=== PATIENT | female | born 1930 | race Asian ===

== ENCOUNTER 2018-10-01 21:48 | Inpatient (IN) | payer MEDICARE ==
[~2018-10-01] VITALS: Ht 162.6 cm; Wt 38.7 kg
[2018-10-01 22:00] VITALS: BP 114/80
[2018-10-01] MEDS ORDERED: Vancomycin 1 GM in NS 275 ML IV ONE (22:00)
[2018-10-01] MEDS ORDERED: Cefepime HCl 1 GM in NS 55 ML IV SCH (22:00)
[2018-10-01] MEDS ORDERED: NS 1000ml 1,600 ML IVLG ONE (22:00)
[2018-10-01 23:00] VITALS: BP 116/70
[2018-10-01 23:07] LABS: APPEARANCE,URINE CLOUDY; BILIRUBIN, URINE NEGATIVE (NEGATIVE); COLOR,URINE PALE YELLOW; GLUCOSE, URINE (UA) NEGATIVE (NEGATIVE); KETONES,URINE NEGATIVE (NEGATIVE); LEUKOCYTE ESTERASE ,URINE 3+ (NEGATIVE); NITRITE,URINE NEGATIVE (NEGATIVE); PH,URINE 5 (4.5-8.0); PROTEIN,URINE 3+ (NEGATIVE); UROBILINOGEN,URINE NORMAL MG/DL (0.0-1.0)
[2018-10-01 23:54] LABS: HEMATOCRIT 37.3 % (37.0-47.0); HEMOGLOBIN 11.7 G/DL (12.0-16.0); MEAN CORPUSCULAR VOLUME 86 FL (80-99); PLATELET COUNT 282 K/UL (150-450); RED BLOOD COUNT 4.35 M/UL (4.20-5.40); RED CELL DISTRIBUTION WIDTH 16.5 % (11.6-14.8); WHITE BLOOD COUNT 18.6 K/UL (4.8-10.8)
[2018-10-02] VITALS (19 sets, daily range): BP systolic 77–128; BP diastolic 38–97
[2018-10-02 00:05] LABS: INR 1.1 (0.9-1.1)
[2018-10-02 00:22] LABS: ALANINE AMINOTRANSFERASE 18 U/L (12-78); ALBUMIN/GLOBULIN RATIO 0.5 (1.0-2.7); ALKALINE PHOSPHATASE 93 U/L (46-116); ANION GAP 18 mmol/L (5-15); ASPARTATE AMINO TRANSFERASE 54 U/L (15-37); BILIRUBIN,TOTAL 0.3 MG/DL (0.2-1.0); BLOOD UREA NITROGEN 128 mg/dL (7-18); CALCIUM 10.8 MG/DL (8.5-10.1); CARBON DIOXIDE 20 MMOL/L (21-32); CHLORIDE 131 MMOL/L (98-107); CREATINE KINASE 252 U/L (26-308); CREATININE 6.4 MG/DL (0.55-1.30)
[2018-10-02 00:23] LABS: POTASSIUM 6.3 MMOL/L (3.5-5.1); SODIUM 168 MMOL/L (136-145)
[2018-10-02] MEDS ORDERED: Calcium Gluconate 1gm/10ml vial IVP ONE (00:45)
[2018-10-02] MEDS ORDERED: Sodium Polystyrene Sulfonate 15gm Powder RECTAL ONE (00:45)
[2018-10-02] MEDS ORDERED: Sodium Bicarbonate 50ml Carp IV ONE (00:45)
[2018-10-02] MEDS ORDERED: Sodium Polystyrene Sulfonate Enema RECTAL ONE (00:59)
[2018-10-02] MEDS ORDERED: NKM (02:23)
--- NOTE | 2018-10-02 03:01 | Emergency Room Report ---
History of Present Illness General Chief Complaint: Altered Level of Consciousness Source: Family Member, EMS Present Illness HPI Patient presents via EMS for ALOC and poor oral intake. According to daughter, has been on antibiotics. Treated at [facility]. No G tube. Now more lethargy. No cough or fevers. No NVD. Problems with dysphagia. Had some abdominal surgery Wednesday (5 days ago) and has not been at baseline since. EMS EKG with a fib rapid and no STEMI. Chronic a fib. Pacer Has sacral decubitus. Patient unable to communicate due to dementia. Allergies: Coded Allergies: No Known Allergies (Unverified , 01/02/13) Patient History Limited by: medical condition Past Medical History: see triage record Past Surgical History: hysterectomy, pacemaker Social History Narrative daughter caring for patient Now: No Reviewed Nursing Documentation: PMH: Agreed; PSxH: Agreed Nursing Documentation-PMH Hx Cardiac Problems: Yes - a-fib Hx Hypertension: Yes Hx Pacemaker: Yes Hx Cancer: Yes - hysterectomy tumors removed 2005 Review of Systems All Other Systems: limited Physical Exam Vital Signs Date Time Temp Pulse Resp B/P (MAP) Pulse Ox O2 Delivery O2 Flow Rate FiO2 10/01/18 21:16 130 16 102/77 97 Room Air 10/01/18 22:00 98.0 Sp02 EP Interpretation: reviewed, normal General Appearance: mild distress, Chronically Ill Eyes: left eye other - glass eye ENT: dry mucus membranes Neck: supple/symm/no masses Respiratory: chest non-tender, lungs clear, normal breath sounds Cardiovascular #1: tachycardia, irregularly irregular Cardiovascular #2: 2+ radial (L), 2+ femoral (R) Gastrointestinal: normal bowel sounds, non tender, soft Genitourinary: no CVA tenderness, other - urine via [place] = turbid Musculoskeletal: other - atrophy Neurologic: responsive, motor weakness - diffuse - good UE strength Psychiatric: depressed affect Skin: other - stage 2 sacral decubs Procedures Critical Care Time Critical Care Time Total Critical Care Time: 90 min bedside evaluation and treatment excludes procedures (EKG, CVP). Reason for critical care: hypotension, a fib RVR, ALOC/sepsis, ARF, hyperkalemia , NSTEMI, hypernatremia Possible complications: hypotension, hypertension, SD, shock, arrhythmias, metabolic acidosis, end organ damage, respiratory failure. Interventions: Fluid bolus, antibiotics, CVP, discussion level of care, discussion [facility] Course: Patient with ALOC, hypotension and tachycardia. Initiation of sepsis resuscitation. Unable to get bloods, need for CVP. Elevated troponin. Unable to give PO - NG placed, aspirin given. Discussion level of care with daughter. Discussion with Dax DHILLON - deemed non-transferrable. Improved with sepsis re -evaluation. K+ elevated with ARF. Treated. Improved with treatment, still critical. Consultations: nursing staff, EMS, family, Dax DHILLON, admitting MD Performed by: Dr. Hernandez Tolerated well condition = critical Central Line Central Line : Consent: Verbal Central Line Lumen: triple Maximal Sterile Barrier Tech: yes cap, yes mask, yes sterile gown, yes sterile gloves, yes large sterile sheet, yes hand hygiene, yes chlorhexidine prep Central Line Postion: femoral (R) - ultrasound Anesthesia: Lidocaine cc's of anesthesia: 1 Complications: none Central Line Post Position: sutured, good blood return Attempts: One Patient Tolerated: Well Complications: None Progress bloods drawn for lab (40 ml), total EBL = 42 ml. Medical Decision Making Diagnostic Impression: Primary Impression: Sepsis Qualified Codes: A41.9 - Sepsis, unspecified organism Additional Impressions: UTI (urinary tract infection) Qualified Codes: N39.0 - Urinary tract infection, site not specified Renal failure Qualified Codes: N17.9 - Acute kidney failure, unspecified Hyperkalemia NSTEMI (non-ST elevated myocardial infarction) ER Course Patient with tachycardia, hypotension and atrial fib rapid response. DDX: sepsis, UTI, pneumonia, AMI amongst others. Sepsis evaluation with antibiotics ordered. EKG without STEMI. Labs unable. CXR no CHF, pacer, no infiltrates. BNP minimally elevated. Daughter initially refused antibiotics. Daughter states full code. Unable to draw blood peripherally and low BP - CVP discussed with daughter and begun under ultrasound. Treated for hyperkalemia. Clinically not CHF. However, holding fluids after 1st liter due to ARF. HR better and mentation improved. NSTEMI ordered aspirin. Improving - repeat lactate improving. Improved mentation. Presented to Dr. Boles at [facility]. We feel she is unstable for transfer at this time. Admit Dr. Jimenez SIERRA. Laboratory Tests Test 10/01/18 22:40 10/01/18 23:30 10/02/18 01:07 Urine Color Pale yellow Urine Appearance Cloudy Urine pH 5 (4.5-8.0) Urine Specific [place] 1.015 (1.005-1.035) Urine Protein 3+ (NEGATIVE) H Urine Glucose (UA) Negative (NEGATIVE) Urine Ketones Negative (NEGATIVE) Urine Blood 5+ (NEGATIVE) H Urine Nitrite Negative (NEGATIVE) Urine Bilirubin Negative (NEGATIVE) Urine Urobilinogen Normal MG/DL (0.0-1.0) Urine Leukocyte Esterase 3+ (NEGATIVE) H Urine RBC 5-10 /HPF (0 - 2) H Urine WBC 15-20 /HPF (0 - 2) H Urine Squamous Epithelial Cells Few /LPF (NONE/OCC) Urine Amorphous Sediment Few /LPF (NONE) H Urine Bacteria Many /HPF (NONE) H White Blood Count 18.6 K/UL (4.8-10.8) H Red Blood Count 4.35 M/UL (4.20-5.40) Hemoglobin 11.7 G/DL (12.0-16.0) L Hematocrit 37.3 % (37.0-47.0) Mean Corpuscular Volume 86 FL (80-99) Mean Corpuscular Hemoglobin 27.0 PG (27.0-31.0) Mean Corpuscular Hemoglobin Concent 31.5 G/DL (32.0-36.0) L Red Cell Distribution Width 16.5 % (11.6-14.8) H Platelet Count 282 K/UL (150-450) Mean Platelet Volume 6.3 FL (6.5-10.1) L Neutrophils (%) (Auto) % (45.0-75.0) Lymphocytes (%) (Auto) % (20.0-45.0) Monocytes (%) (Auto) % (1.0-10.0) Eosinophils (%) (Auto) % (0.0-3.0) Basophils (%) (Auto) % (0.0-2.0) Differential Total Cells Counted 100 Neutrophils % (Manual) 87 % (45-75) H Lymphocytes % (Manual) 6 % (20-45) L Monocytes % (Manual) 7 % (1-10) Eosinophils % (Manual) 0 % (0-3) Basophils % (Manual) 0 % (0-2) Band Neutrophils 0 % (0-8) Platelet Estimate Adequate Platelet Morphology Normal Anisocytosis 1+ Target Cells 1+ Acanthocytes (Spur Cells) 1+ Prothrombin Time 11.4 SEC (9.30-11.50) Prothrombin Time INR 1.1 (0.9-1.1) PTT 24 SEC (23-33) Sodium Level 168 MMOL/L (136-145) *H Potassium Level 6.3 MMOL/L (3.5-5.1) *H Chloride Level 131 MMOL/L (98-107) H Carbon Dioxide Level 20 MMOL/L (21-32) L Anion Gap 18 mmol/L (5-15) H Blood Urea Nitrogen 128 mg/dL (7-18) H Creatinine 6.4 MG/DL (0.55-1.30) H Estimate Glomerular Filtration Rate mL/min (>60) Glucose Level 145 MG/DL (74-106) H Lactic Acid Level 2.80 mmol/L (0.4-2.0) H 2.20 mmol/L (0.66-2.22) Calcium Level 10.8 MG/DL (8.5-10.1) H Magnesium Level 3.2 MG/DL (1.8-2.4) H Total Bilirubin 0.3 MG/DL (0.2-1.0) Aspartate Amino Transferase (AST) 54 U/L (15-37) H Alanine Aminotransferase (ALT) 18 U/L (12-78) Alkaline Phosphatase 93 U/L (46-116) Total Creatine Kinase 252 U/L (26-308) Troponin I 0.247 ng/mL (0.000-0.056) Pro-B-Type Natriuretic Peptide 2271 pg/mL (0-125) H Total Protein 8.6 G/DL (6.4-8.2) H Albumin 3.0 G/DL (3.4-5.0) L Globulin 5.6 g/dL Albumin/Globulin Ratio 0.5 (1.0-2.7) L EKG Diagnostic Results Rate: tachycardiac Rhythm: other - a fib ST Segments: other - NSSTTW changes Rhythm Strip Diag. Results EP Interpretation: yes Rhythm: no PVC's, no ectopy, other - a fib RVR Chest X-Ray Diagnostic Results Chest X-Ray Diagnostic Results : Chest X-Ray Ordered: Yes # of Views/Limited/Complete: 1 View Indication: Other EP Interpretation: Yes Interpretation: no consolidation, no effusion, no pneumothorax, other - pacer Impression: Other Electronically Signed by: Electronically signed by Lobo Hernandez MD Other X-Ray Diagnostic Results Other X-Ray Diagnostic Results : X-Ray ordered: abd # of Views/Limited Vs Complete: 1 View Indication: Other EP Interpretation: Yes Interpretation: nonspecific bowel gas, no sbo, other - NG in GI tract Impression: Other Electronically Signed by: Lobo Hernandez MD Last Vital Signs Date Time Temp Pulse Resp B/P (MAP) Pulse Ox O2 Delivery O2 Flow Rate FiO2 10/02/18 06:00 15.0 10/02/18 05:30 98.0 120 95/50 (65) 10/02/18 05:30 Venturi Mask 10/02/18 05:24 20 95 Status: improved Disposition: ADMITTED INPATIENT Condition: Critical Referrals: [facility] (PCP) Lobo Hernandez MD Oct 02, 2018 03:01
[2018-10-02] MEDS ORDERED: Albuterol/Ipratropium 3ml neb HHN PRN (08:15)
[2018-10-02] MEDS ORDERED: Nitroglycerin Subl 0.4mg tab SL PRN (08:15)
[2018-10-02] MEDS ORDERED: Metoprolol 5mg/5ml Inj IVP SCH (08:30)
--- NOTE | 2018-10-02 08:31 | Consultation ---
History of Present Illness General Date patient seen: Oct 02, 2018 Time patient seen: 08:15 Chief Complaint: sepsis Referring physician: dr Gaona Reason for Consultation: sepsis. resp failure Present Illness HPI 87 y/o9kld female with unknown past medical history and pacemaker, noted on CXR , presented to ED for evaluation due to altered mental status. She was found to be septic, in A fib with RVR, evidence of UTI, acute renal failure, acute respiratory failure, started on 100% NRM, troponin elevated, electrolyte abnormalities with high Na and K, malnourished . Septic workup initiated in ED, patient received 1 L of fluids, pancultured and started on empiric abx, Subsequently patient was admitted to [facility] for further management Allergies: Coded Allergies: No Known Allergies (Unverified , 01/02/13) Medication History Scheduled No Known Medications* (NKM - No Known Medications*), 0 ., (Reported) Patient History Limited by: medical condition - sepsis, AMS History Provided By: Medical Record Healthcare decision maker Resuscitation status Full code Advanced Directive on File Review of Systems ROS Narrative unable to obtain 2 to AMS Physical Exam General Appearance: lethargic, cachetic, other - female ill looking Lines, tubes and drains: peripheral HEENT: normocephalic, atraumatic, other - 100% NRM Neck: supple Respiratory/Chest: chest wall non-tender, respiratory distress - with use of intercostal muscles , decreased breath sounds Cardiovascular/Chest: no JVD, irregularly irregular - A fib with RVR Abdomen: normal bowel sounds, non tender, soft Genitourinary/Rectal: other Extremities: no calf tenderness, no edema Skin Exam: other - sacral decub st 2 POA Neurologic: abnormal gait - bedridden , other - lethargic Musculoskeletal: atrophy - BLE Last 24 Hour Vital Signs Date Time Temp Pulse Resp B/P (MAP) Pulse Ox O2 Delivery O2 Flow Rate FiO2 10/02/18 06:00 15.0 10/02/18 05:30 98.0 120 95/50 (65) 10/02/18 05:24 97.6 125 20 121/104 95 Room Air 10/02/18 01:00 120 16 120/80 99 Room Air 10/01/18 23:00 114 16 116/70 98 10/01/18 22:00 98.0 110 16 114/80 97 Room Air 10/01/18 22:00 110 16 Room Air 10/01/18 21:16 130 16 102/77 97 Room Air Intake and Output 10/01/18 10/02/18 19:00 07:00 Intake Total 4055 ml Output Total 101 ml Balance 3954 ml Intake IV Total 4055 ml Output Urine Total 100 ml Stool Total 1 ml # Bowel Movements 2 Laboratory Tests Test 10/01/18 22:40 10/01/18 23:30 10/02/18 01:07 Urine Color Pale yellow Urine Appearance Cloudy Urine pH 5 (4.5-8.0) Urine Specific [place] 1.015 (1.005-1.035) Urine Protein 3+ (NEGATIVE) H Urine Glucose (UA) Negative (NEGATIVE) Urine Ketones Negative (NEGATIVE) Urine Blood 5+ (NEGATIVE) H Urine Nitrite Negative (NEGATIVE) Urine Bilirubin Negative (NEGATIVE) Urine Urobilinogen Normal MG/DL (0.0-1.0) Urine Leukocyte Esterase 3+ (NEGATIVE) H Urine RBC 5-10 /HPF (0 - 2) H Urine WBC 15-20 /HPF (0 - 2) H Urine Squamous Epithelial Cells Few /LPF (NONE/OCC) Urine Amorphous Sediment Few /LPF (NONE) H Urine Bacteria Many /HPF (NONE) H White Blood Count 18.6 K/UL (4.8-10.8) H Red Blood Count 4.35 M/UL (4.20-5.40) Hemoglobin 11.7 G/DL (12.0-16.0) L Hematocrit 37.3 % (37.0-47.0) Mean Corpuscular Volume 86 FL (80-99) Mean Corpuscular Hemoglobin 27.0 PG (27.0-31.0) Mean Corpuscular Hemoglobin Concent 31.5 G/DL (32.0-36.0) L Red Cell Distribution Width 16.5 % (11.6-14.8) H Platelet Count 282 K/UL (150-450) Mean Platelet Volume 6.3 FL (6.5-10.1) L Neutrophils (%) (Auto) % (45.0-75.0) Lymphocytes (%) (Auto) % (20.0-45.0) Monocytes (%) (Auto) % (1.0-10.0) Eosinophils (%) (Auto) % (0.0-3.0) Basophils (%) (Auto) % (0.0-2.0) Differential Total Cells Counted 100 Neutrophils % (Manual) 87 % (45-75) H Lymphocytes % (Manual) 6 % (20-45) L Monocytes % (Manual) 7 % (1-10) Eosinophils % (Manual) 0 % (0-3) Basophils % (Manual) 0 % (0-2) Band Neutrophils 0 % (0-8) Platelet Estimate Adequate Platelet Morphology Normal Anisocytosis 1+ Target Cells 1+ Acanthocytes 1+ Prothrombin Time 11.4 SEC (9.30-11.50) Prothromb Time International Ratio 1.1 (0.9-1.1) Activated Partial Thromboplast Time 24 SEC (23-33) Sodium Level 168 MMOL/L (136-145) *H Potassium Level 6.3 MMOL/L (3.5-5.1) *H Chloride Level 131 MMOL/L (98-107) H Carbon Dioxide Level 20 MMOL/L (21-32) L Anion Gap 18 mmol/L (5-15) H Blood Urea Nitrogen 128 mg/dL (7-18) H Creatinine 6.4 MG/DL (0.55-1.30) H Estimat Glomerular Filtration Rate mL/min (>60) Glucose Level 145 MG/DL (74-106) H Lactic Acid Level 2.80 mmol/L (0.4-2.0) H 2.20 mmol/L (0.66-2.22) Calcium Level 10.8 MG/DL (8.5-10.1) H Magnesium Level 3.2 MG/DL (1.8-2.4) H Total Bilirubin 0.3 MG/DL (0.2-1.0) Aspartate Amino Transf (AST/SGOT) 54 U/L (15-37) H Alanine Aminotransferase (ALT/SGPT) 18 U/L (12-78) Alkaline Phosphatase 93 U/L (46-116) Total Creatine Kinase 252 U/L (26-308) Troponin I 0.247 ng/mL (0.000-0.056) Pro-B-Type Natriuretic Peptide 2271 pg/mL (0-125) H Total Protein 8.6 G/DL (6.4-8.2) H Albumin 3.0 G/DL (3.4-5.0) L Globulin 5.6 g/dL Albumin/Globulin Ratio 0.5 (1.0-2.7) L Height (Feet): 5 Height (Inches): 4.00 Weight (Pounds): 120 Assessment/Plan Assessment/Plan ASSESSMENT sepsis with shock acute hypoxemic respiratory failure, requiring 100% NRM UTI AF with RVR/ with hx of permanent A fib acute renal failure e/lyte abnormalities: hypernatremia, hyperkalemia abnormal cardiac enzymes pacemaker HTN Acute encephalopathy , likely 2 to sepsis - on underlying dementia black stools, probably GI bleeding severe protein calorie malnutrition PLAN OF CARE initially in [facility], BP dropping Levophed gtt and transfer to ICU close monitoring of hemodynamic status cardio eval serial troponin, probably troponin leak 2 to renal failure , but need to be r/o for acute LA ECG ECHO start ASA , Nitro prn will not start a/coagulation given black stools DVT prophylaxis Venous Duplex BLE ABG on 100% with metabolic acidosis repeated ABG better, hold intubation for now check TSH, lipid panel s/p Kayexalate gentle IVF renal US monitor renal parameters, lytes, correct lytes as needed, avoid nephrotoxic nephro eval GI prophylaxis supportive care wound care dietary eval re nutritional supplementals full code case discussed and evaluated by supervising physician Brooke Lau NP Oct 02, 2018 08:31
--- NOTE | 2018-10-02 09:30 | Cardiology Progress Note ---
Assessment/Plan Assessment/Plan poor po intake adn confusion lethargic cold feet turned blue over nathan past few days septic shock hyoxemia ? hypernatremai hyperkalemia arf afib perm hs skin cancer basl ceel carcinom to ln pacer for tachy cobb replaced recently htn mi 2003 nonintervention diverticulitis? hs of [id number] not treated recently was takenoff anticoagulation when dx with cancer ? and risk of falling ureteral stent placed and replaced 2 weeks ago hysterecotmy repaet bg cxr repeat trop and ekg and all labs venous duplex pressor levophed for bp supoort ivf correct k echo abx empirically allergies to a medication with rash sister no aware of name sh quit 40 year ago , no etoh , lives at home with dtr Objective Last 24 Hour Vital Signs Date Time Temp Pulse Resp B/P (MAP) Pulse Ox O2 Delivery O2 Flow Rate FiO2 10/02/18 08:00 120 10/02/18 06:00 15.0 10/02/18 05:30 98.0 120 95/50 (65) 10/02/18 05:30 Venturi Mask 15.0 10/02/18 05:24 97.6 125 20 121/104 95 Room Air 10/02/18 01:00 120 16 120/80 99 Room Air 10/01/18 23:00 114 16 116/70 98 10/01/18 22:00 98.0 110 16 114/80 97 Room Air 10/01/18 22:00 110 16 Room Air 10/01/18 21:16 130 16 102/77 97 Room Air Intake and Output 10/01/18 10/02/18 19:00 07:00 Intake Total 4055 ml Output Total 101 ml Balance 3954 ml Intake IV Total 4055 ml Output Urine Total 100 ml Stool Total 1 ml # Bowel Movements 3 Laboratory Tests Test 10/01/18 22:40 10/01/18 23:30 10/02/18 01:07 10/02/18 08:30 Urine Color Pale yellow Urine Appearance Cloudy Urine pH 5 (4.5-8.0) Urine Specific [place] 1.015 (1.005-1.035) Urine Protein 3+ (NEGATIVE) H Urine Glucose (UA) Negative (NEGATIVE) Urine Ketones Negative (NEGATIVE) Urine Blood 5+ (NEGATIVE) H Urine Nitrite Negative (NEGATIVE) Urine Bilirubin Negative (NEGATIVE) Urine Urobilinogen Normal MG/DL (0.0-1.0) Urine Leukocyte Esterase 3+ (NEGATIVE) H Urine RBC 5-10 /HPF (0 - 2) H Urine WBC 15-20 /HPF (0 - 2) H Urine Squamous Epithelial Cells Few /LPF (NONE/OCC) Urine Amorphous Sediment Few /LPF (NONE) H Urine Bacteria Many /HPF (NONE) H White Blood Count 18.6 K/UL (4.8-10.8) H Red Blood Count 4.35 M/UL (4.20-5.40) Hemoglobin 11.7 G/DL (12.0-16.0) L Hematocrit 37.3 % (37.0-47.0) Mean Corpuscular Volume 86 FL (80-99) Mean Corpuscular Hemoglobin 27.0 PG (27.0-31.0) Mean Corpuscular Hemoglobin Concent 31.5 G/DL (32.0-36.0) L Red Cell Distribution Width 16.5 % (11.6-14.8) H Platelet Count 282 K/UL (150-450) Mean Platelet Volume 6.3 FL (6.5-10.1) L Neutrophils (%) (Auto) % (45.0-75.0) Lymphocytes (%) (Auto) % (20.0-45.0) Monocytes (%) (Auto) % (1.0-10.0) Eosinophils (%) (Auto) % (0.0-3.0) Basophils (%) (Auto) % (0.0-2.0) Differential Total Cells Counted 100 Neutrophils % (Manual) 87 % (45-75) H Lymphocytes % (Manual) 6 % (20-45) L Monocytes % (Manual) 7 % (1-10) Eosinophils % (Manual) 0 % (0-3) Basophils % (Manual) 0 % (0-2) Band Neutrophils 0 % (0-8) Platelet Estimate Adequate Platelet Morphology Normal Anisocytosis 1+ Target Cells 1+ Acanthocytes 1+ Prothrombin Time 11.4 SEC (9.30-11.50) Prothromb Time International Ratio 1.1 (0.9-1.1) Activated Partial Thromboplast Time 24 SEC (23-33) Sodium Level 168 MMOL/L (136-145) *H Potassium Level 6.3 MMOL/L (3.5-5.1) *H Chloride Level 131 MMOL/L (98-107) H Carbon Dioxide Level 20 MMOL/L (21-32) L Anion Gap 18 mmol/L (5-15) H Blood Urea Nitrogen 128 mg/dL (7-18) H Creatinine 6.4 MG/DL (0.55-1.30) H Estimat Glomerular Filtration Rate mL/min (>60) Glucose Level 145 MG/DL (74-106) H Lactic Acid Level 2.80 mmol/L (0.4-2.0) H 2.20 mmol/L (0.66-2.22) Calcium Level 10.8 MG/DL (8.5-10.1) H Magnesium Level 3.2 MG/DL (1.8-2.4) H Total Bilirubin 0.3 MG/DL (0.2-1.0) Aspartate Amino Transf (AST/SGOT) 54 U/L (15-37) H Alanine Aminotransferase (ALT/SGPT) 18 U/L (12-78) Alkaline Phosphatase 93 U/L (46-116) Total Creatine Kinase 252 U/L (26-308) Troponin I 0.247 ng/mL (0.000-0.056) Pro-B-Type Natriuretic Peptide 2271 pg/mL (0-125) H Total Protein 8.6 G/DL (6.4-8.2) H Albumin 3.0 G/DL (3.4-5.0) L Globulin 5.6 g/dL Albumin/Globulin Ratio 0.5 (1.0-2.7) L Arterial Blood pH 7.275 (7.350-7.450) Arterial Blood Partial Pressure CO2 34.6 mmHg (35.0-45.0) L Arterial Blood Partial Pressure O2 41.6 mmHg (75.0-100.0) Arterial Blood HCO3 15.7 mmol/L (22.0-26.0) *L Arterial Blood Oxygen Saturation 67.6 % (95-100) *L Arterial Blood Base Excess -10.2 (-2-2) *L Michele Test Positive Test 10/02/18 08:55 Activated Partial Thromboplast Time 33 SEC (23-33) Konrad Rodas MD Oct 02, 2018 09:30
[2018-10-02] MEDS ORDERED: Sterile Water Irrig 1000ml IRRIG ONE (09:46)
[2018-10-02] MEDS: Pantoprazole Inj IVP SCH (11:30)
[2018-10-02] MEDS: Heparin 5000 units/ml inj SUBQ SCH ×2 (11:30→21:18)
[2018-10-02] MEDS: Aspirin Baby 81mg NG SCH (11:30)
--- NOTE | 2018-10-02 12:09 | Diagnostic Imaging Report ---
EXAM: US Retroperitoneal Limited, Renal CLINICAL HISTORY: Acute renal failure TECHNIQUE: Real-time ultrasound of the retroperitoneum (limited) with image documentation. COMPARISON: Report from a CT abdomen and pelvis dated 01/03 13. No images available. FINDINGS: Limitations: The interior specialist remarked that the exam was made difficult by combative, confused, and non-cooperative patient. Aorta: Abdominal aorta and IVC obscured by bowel gas. Right kidney: Right kidney measures 7.9 x 4.1 x 3.7 cm. No visible parenchymal lesions. No visible stones. No hydronephrosis. Left kidney: 1.2 cm shadowing stone in the left lower renal pole. Mild hydronephrosis. Left kidney measures 10.2 x 4.5 x 4.0 cm. Bladder: Urinary bladder not well seen. IMPRESSION: 1. 1.2 cm shadowing stone in the left lower renal pole. 2. Mild left hydronephrosis.
[2018-10-02 12:11] LABS: HEMATOCRIT 29.9 % (37.0-47.0); HEMOGLOBIN 9.2 G/DL (12.0-16.0); MEAN CORPUSCULAR VOLUME 87 FL (80-99); PLATELET COUNT 193 K/UL (150-450); RED BLOOD COUNT 3.45 M/UL (4.20-5.40); RED CELL DISTRIBUTION WIDTH 17.1 % (11.6-14.8); WHITE BLOOD COUNT 16.7 K/UL (4.8-10.8)
[2018-10-02 12:16] LABS: INR 1.3 (0.9-1.1)
--- NOTE | 2018-10-02 12:30 | Consultation ---
Consult Note Consult Note 87 y/o9kld female with unknown past medical history and pacemaker, noted on CXR , presented to ED for evaluation due to altered mental status. She was found to be septic, in A fib with RVR, evidence of UTI, acute renal failure, acute respiratory failure, started on 100% NRM, troponin elevated, electrolyte abnormalities with high Na and K, malnourished . Septic workup initiated in ED, patient received 1 L of fluids, pancultured and started on empiric abx, Subsequently patient was admitted to [facility] for further management Allergies: Coded Allergies: No Known Allergies (Unverified , 01/02/13) examined in icu data reviewed discussed with RN Contracted- Hypotensive . Assessment/Plan Acute renal failure / Hyperkalemia Sepsis / Shock / UTI NSTEMI (non-ST elevated myocardial infarction) Fluid challenge Antibiotics Avoid Nephrotoxics Urine studies pulmonary support poor prognosis Doc Shaver MD Oct 02, 2018 12:30
--- NOTE | 2018-10-02 12:32 | Diagnostic Imaging Report ---
EXAM: XR Chest, 1 View CLINICAL HISTORY: F/U TECHNIQUE: Frontal view of the chest. COMPARISON: Chest x-ray dated 10/01/18 FINDINGS: Lungs: Unchanged appearance of prominent interstitial markings. No new focal consolidation. Pleural space: Unremarkable. The costophrenic angles are sharp. No visible pneumothorax. Heart: Unremarkable. No cardiomegaly. Mediastinum: Unremarkable. Bones/joints: Mild degenerative changes in the shoulder joints and spine. Vasculature: Atherosclerotic calcifications are noted within the aortic arch. Tubes, lines and devices: Stable positioning of a cardiac pacer in the left chest wall with lead tips in the right atrium and right ventricle regions. EKG leads overlie the thorax. IMPRESSION: Unchanged appearance of prominent interstitial markings. This is likely related to chronic senescent changes although differential diagnosis may also include mild bronchitis or interstitial pneumonitis.
[2018-10-02 12:39] LABS: ALANINE AMINOTRANSFERASE 30 U/L (12-78); ALBUMIN 2.3 G/DL (3.4-5.0); ALBUMIN/GLOBULIN RATIO 0.5 (1.0-2.7); ALKALINE PHOSPHATASE 83 U/L (46-116); ANION GAP 18 mmol/L (5-15); ASPARTATE AMINO TRANSFERASE 118 U/L (15-37); BILIRUBIN,TOTAL 0.4 MG/DL (0.2-1.0); BLOOD UREA NITROGEN 117 mg/dL (7-18); CARBON DIOXIDE 18 MMOL/L (21-32); CHLORIDE 134 MMOL/L (98-107); CREATININE 5.5 MG/DL (0.55-1.30); POTASSIUM 5.6 MMOL/L (3.5-5.1)
[2018-10-02 12:58] LABS: SODIUM 171 MMOL/L (136-145)
[2018-10-02 13:26] LABS: PHOSPHORUS 5.4 MG/DL (2.5-4.9)
[2018-10-02] MEDS ORDERED: dilTIAZem HCl 30mg tab ORAL SCH (14:00)
[2018-10-02] MEDS ORDERED: Sodium Polystyrene Sulfonate 15gm Powder ORAL SCH (14:15)
--- NOTE | 2018-10-02 14:52 | History & Physical ---
History and Physical History & Physicial Dictated for Int Med-Dr Gaona no. [id number]. ICU Guido Augustin MD Oct 02, 2018 14:52
--- NOTE | 2018-10-02 14:55 | Cardiac Electrophysiology PN ---
Subjective Subjective EP CONSULT DICTATED [id number] Fib, Biotronic PPM Objective Last 24 Hour Vital Signs Date Time Temp Pulse Resp B/P (MAP) Pulse Ox O2 Delivery O2 Flow Rate FiO2 10/02/18 14:00 89 21 105/70 (82) 89 10/02/18 13:00 123 19 110/83 (92) 89 10/02/18 12:00 97.2 135 24 95/80 (85) 94 10/02/18 11:00 125 20 84/38 (53) 90 10/02/18 10:00 133 24 98/73 (81) 94 10/02/18 09:00 97.0 133 22 113/96 (102) 93 10/02/18 09:00 Non-Rebreather 100.0 10/02/18 08:15 77/73 (74) 10/02/18 08:00 120 10/02/18 08:00 Non-Rebreather 100.0 10/02/18 08:00 91.0 72 26 100/51 (67) 88 10/02/18 06:00 15.0 10/02/18 05:30 98.0 120 95/50 (65) 10/02/18 05:30 Venturi Mask 15.0 10/02/18 05:24 97.6 125 20 121/104 95 Room Air 10/02/18 01:00 120 16 120/80 99 Room Air 10/01/18 23:00 114 16 116/70 98 10/01/18 22:00 98.0 110 16 114/80 97 Room Air 10/01/18 22:00 110 16 Room Air 10/01/18 21:16 130 16 102/77 97 Room Air Intake and Output 10/01/18 10/02/18 19:00 07:00 Intake Total 4055 ml Output Total 101 ml Balance 3954 ml Intake IV Total 4055 ml Output Urine Total 100 ml Stool Total 1 ml # Bowel Movements 3 Laboratory Tests Test 10/01/18 22:40 10/01/18 23:30 10/02/18 01:07 10/02/18 08:30 Urine Color Pale yellow Urine Appearance Cloudy Urine pH 5 (4.5-8.0) Urine Specific [place] 1.015 (1.005-1.035) Urine Protein 3+ (NEGATIVE) H Urine Glucose (UA) Negative (NEGATIVE) Urine Ketones Negative (NEGATIVE) Urine Blood 5+ (NEGATIVE) H Urine Nitrite Negative (NEGATIVE) Urine Bilirubin Negative (NEGATIVE) Urine Urobilinogen Normal MG/DL (0.0-1.0) Urine Leukocyte Esterase 3+ (NEGATIVE) H Urine RBC 5-10 /HPF (0 - 2) H Urine WBC 15-20 /HPF (0 - 2) H Urine Squamous Epithelial Cells Few /LPF (NONE/OCC) Urine Amorphous Sediment Few /LPF (NONE) H Urine Bacteria Many /HPF (NONE) H White Blood Count 18.6 K/UL (4.8-10.8) H Red Blood Count 4.35 M/UL (4.20-5.40) Hemoglobin 11.7 G/DL (12.0-16.0) L Hematocrit 37.3 % (37.0-47.0) Mean Corpuscular Volume 86 FL (80-99) Mean Corpuscular Hemoglobin 27.0 PG (27.0-31.0) Mean Corpuscular Hemoglobin Concent 31.5 G/DL (32.0-36.0) L Red Cell Distribution Width 16.5 % (11.6-14.8) H Platelet Count 282 K/UL (150-450) Mean Platelet Volume 6.3 FL (6.5-10.1) L Neutrophils (%) (Auto) % (45.0-75.0) Lymphocytes (%) (Auto) % (20.0-45.0) Monocytes (%) (Auto) % (1.0-10.0) Eosinophils (%) (Auto) % (0.0-3.0) Basophils (%) (Auto) % (0.0-2.0) Differential Total Cells Counted 100 Neutrophils % (Manual) 87 % (45-75) H Lymphocytes % (Manual) 6 % (20-45) L Monocytes % (Manual) 7 % (1-10) Eosinophils % (Manual) 0 % (0-3) Basophils % (Manual) 0 % (0-2) Band Neutrophils 0 % (0-8) Platelet Estimate Adequate Platelet Morphology Normal Anisocytosis 1+ Target Cells 1+ Acanthocytes 1+ Prothrombin Time 11.4 SEC (9.30-11.50) Prothromb Time International Ratio 1.1 (0.9-1.1) Activated Partial Thromboplast Time 24 SEC (23-33) Sodium Level 168 MMOL/L (136-145) *H Potassium Level 6.3 MMOL/L (3.5-5.1) *H Chloride Level 131 MMOL/L (98-107) H Carbon Dioxide Level 20 MMOL/L (21-32) L Anion Gap 18 mmol/L (5-15) H Blood Urea Nitrogen 128 mg/dL (7-18) H Creatinine 6.4 MG/DL (0.55-1.30) H Estimat Glomerular Filtration Rate mL/min (>60) Glucose Level 145 MG/DL (74-106) H Lactic Acid Level 2.80 mmol/L (0.4-2.0) H 2.20 mmol/L (0.66-2.22) Calcium Level 10.8 MG/DL (8.5-10.1) H Magnesium Level 3.2 MG/DL (1.8-2.4) H Total Bilirubin 0.3 MG/DL (0.2-1.0) Aspartate Amino Transf (AST/SGOT) 54 U/L (15-37) H Alanine Aminotransferase (ALT/SGPT) 18 U/L (12-78) Alkaline Phosphatase 93 U/L (46-116) Total Creatine Kinase 252 U/L (26-308) Troponin I 0.247 ng/mL (0.000-0.056) Pro-B-Type Natriuretic Peptide 2271 pg/mL (0-125) H Total Protein 8.6 G/DL (6.4-8.2) H Albumin 3.0 G/DL (3.4-5.0) L Globulin 5.6 g/dL Albumin/Globulin Ratio 0.5 (1.0-2.7) L Arterial Blood pH 7.275 (7.350-7.450) Arterial Blood Partial Pressure CO2 34.6 mmHg (35.0-45.0) L Arterial Blood Partial Pressure O2 41.6 mmHg (75.0-100.0) Arterial Blood HCO3 15.7 mmol/L (22.0-26.0) *L Arterial Blood Oxygen Saturation 67.6 % (95-100) *L Arterial Blood Base Excess -10.2 (-2-2) *L Michele Test Positive Test 10/02/18 08:55 10/02/18 09:25 10/02/18 11:10 Activated Partial Thromboplast Time 33 SEC (23-33) Arterial Blood pH 7.402 (7.350-7.450) Arterial Blood Partial Pressure CO2 25.7 mmHg (35.0-45.0) L Arterial Blood Partial Pressure O2 625.0 mmHg (75.0-100.0) H Arterial Blood HCO3 15.6 mmol/L (22.0-26.0) *L Arterial Blood Oxygen Saturation 98.8 % (95-100) Arterial Blood Base Excess -7.9 (-2-2) L Michele Test Positive White Blood Count 16.7 K/UL (4.8-10.8) H Red Blood Count 3.45 M/UL (4.20-5.40) L Hemoglobin 9.2 G/DL (12.0-16.0) L Hematocrit 29.9 % (37.0-47.0) L Mean Corpuscular Volume 87 FL (80-99) Mean Corpuscular Hemoglobin 26.7 PG (27.0-31.0) L Mean Corpuscular Hemoglobin Concent 30.9 G/DL (32.0-36.0) L Red Cell Distribution Width 17.1 % (11.6-14.8) H Platelet Count 193 K/UL (150-450) Mean Platelet Volume 7.2 FL (6.5-10.1) Neutrophils (%) (Auto) % (45.0-75.0) Lymphocytes (%) (Auto) % (20.0-45.0) Monocytes (%) (Auto) % (1.0-10.0) Eosinophils (%) (Auto) % (0.0-3.0) Basophils (%) (Auto) % (0.0-2.0) Differential Total Cells Counted 100 Neutrophils % (Manual) 80 % (45-75) H Lymphocytes % (Manual) 5 % (20-45) L Monocytes % (Manual) 7 % (1-10) Eosinophils % (Manual) 0 % (0-3) Basophils % (Manual) 0 % (0-2) Band Neutrophils 8 % (0-8) Platelet Estimate Adequate Platelet Morphology Normal Hypochromasia 1+ Anisocytosis 1+ Prothrombin Time 13.2 SEC (9.30-11.50) H Prothromb Time International Ratio 1.3 (0.9-1.1) H Sodium Level 171 MMOL/L (136-145) *H Potassium Level 5.6 MMOL/L (3.5-5.1) H Chloride Level 134 MMOL/L (98-107) H Carbon Dioxide Level 18 MMOL/L (21-32) L Anion Gap 18 mmol/L (5-15) H Blood Urea Nitrogen 117 mg/dL (7-18) H Creatinine 5.5 MG/DL (0.55-1.30) H Estimat Glomerular Filtration Rate mL/min (>60) Glucose Level 87 MG/DL (74-106) Calcium Level 9.0 MG/DL (8.5-10.1) Phosphorus Level 5.4 MG/DL (2.5-4.9) H Magnesium Level 2.5 MG/DL (1.8-2.4) H Total Bilirubin 0.4 MG/DL (0.2-1.0) Aspartate Amino Transf (AST/SGOT) 118 U/L (15-37) H Alanine Aminotransferase (ALT/SGPT) 30 U/L (12-78) Alkaline Phosphatase 83 U/L (46-116) Troponin I 0.274 ng/mL (0.000-0.056) C-Reactive Protein, Quantitative 10.6 mg/dL (0.00-0.90) H Pro-B-Type Natriuretic Peptide 2817 pg/mL (0-125) H Total Protein 6.5 G/DL (6.4-8.2) Albumin 2.3 G/DL (3.4-5.0) L Globulin 4.2 g/dL Albumin/Globulin Ratio 0.5 (1.0-2.7) L Brock Nicole MD Oct 02, 2018 14:55
[2018-10-02] MEDS ORDERED: CEFEPIME HCL IVPB SCH ×2 (16:00→22:00)
[2018-10-02] MEDS ORDERED: D5W IVPB SCH ×2 (16:00→22:00)
--- NOTE | 2018-10-02 16:45 | Consultation ---
DATE OF CONSULTATION: 10/02/2018 CRITICAL CARE CARDIOLOGY CONSULTATION CONSULTING PHYSICIAN: Konrad Rodas M.D. REASON FOR EVALUATION AND MANAGEMENT: Tachycardia and hypotension and respiratory insufficiency. Information obtained from the patient's chart. I did attempt to get some information from [facility]. Unfortunately, no records available. I did contact [facility] to try to get some records. Unfortunately, extensive late time on the phone and finally I did talk with one daughter Kaela, who was out of town and Geoff other daughter that we finally after several attempts did get a hold off and information was obtained from her as well as from review of the chart. Apparently, the patient has a history of ureteral stent that was replaced approximately one week ago or so and she has been getting more, more lethargic and decreased p.o. intake and doing poorly at home and eventually according to the daughter, cold feet turned blue and she did call the paramedics and brought to the emergency room here at [facility] and was noted to be in atrial fibrillation, rapid ventricular response with evidence of hyperkalemia as well as hypernatremia and renal failure and atrial fibrillation, rapid ventricular response and she has had the saturations even worsened and now being transferred to the intensive care unit for probable intubation and vasopressor support. Unfortunately, the patient herself was not able to provide any meaningful history. Information obtained from the daughter, it appears that she has had a history of permanent atrial fibrillation few weeks ago and on anticoagulation, but that was discontinued because was felt to be has a fall risk. At the time that she was more mobile and so that the Coumadin was discontinued. She does have a history of skin cancer, basal cell carcinoma that was noted to be into the node, history of pacemaker implantation, according to the daughter for the episode of rapid and slow heart rate. This was replaced recently at [facility]. She has a prior history of hypertension sometime ago. She had a myocardial infarction supposedly in 2003, but no records of any intervention per daughter. There is a questionable history of diverticulitis. She has a history of hypothyroidism, but does not require treatment recently according to her daughter. Also history of ureteral stents as mentioned, history of hysterectomy, and no other surgeries. ALLERGIES: There are no known drug allergies. SOCIAL HISTORY: She used to smoke 30 years ago, does not any more. She has not been drinking. She lives at home with her daughter. REVIEW OF SYSTEMS: Really unable to obtain. PHYSICAL EXAMINATION: GENERAL: Shows to be an elderly female, agitated, confused, but awake. NECK: Supple. LUNGS: Decreased breath sounds noted bilaterally. CARDIAC: Irregularly irregular. Tachycardic. ABDOMEN: Soft and nontender. EXTREMITIES: There does not appear to be any edema. NEUROLOGIC: She is awake. She is moving all four extremities, but she is really not communicative or follows any commands. LABORATORY AND DIAGNOSTIC DATA: Her laboratory values basically, an electrocardiogram that shows atrial fibrillation with rapid ventricular response. Really, no significant ST-T wave abnormalities, QRS axis appears to be normal. She has also blood tests with white count of 18.6 last night, hemoglobin of 11.7, and platelet count of 282. Chemistry, sodium 168, potassium 6.3, chloride 131, bicarb of 20, BUN of 128, creatinine of 6.4, glucose of 145, calcium is 10.4 with an albumin of 3.0. Lactic acid of 2.8, subsequently 2.2. Magnesium of 3.2. AST of 54, ALT of 80, and alkaline phosphorus of 93. CPK of 252 with troponin of 0.247. ProBNP of 2200 and her coags, INR of 1.1 and PTT of 24. Her urinalysis appears to show 2+ protein, 3+ leukocyte esterase, 5 to 10 rbc's, 15 to 20 wbc's, few squamous epithelials. ASSESSMENT AND PLAN: 1. Atrial fibrillation with rapid ventricular response, appears to be possibly permanent. 2. Respiratory failure with hypoxemia. 3. Hypotension/septic shock. 4. History of skin cancer, basal cell carcinoma to the lymph nodes. 5. 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 6. History of myocardial infarction. No intervention in 2003. 7. History of diverticulitis. 8. History of recent ureteral stent replacement. Dr. Gaona, this patient was seen in cardiac consultation. The patient unfortunately not able to provide any meaningful history. Her electrocardiogram does not show any significant ST-segment changes. Despite the fact that she was so rapid inn her atrial fibrillation. Nevertheless, some minor troponin abnormality in the setting of an acute renal failure is probably nondiagnostic. Repeat EKGs and repeat cardiac enzymes need to be performed. She needs to be on pressors for the hypotension that she has been having. Her tachycardia may need to be treated with a combination of medications. This possibly somewhat volume depleted. IV fluid boluses should be administered. An echocardiogram will be ordered for evaluation of IVC size as well as left ventricular systolic function and a free water deficit needs to be corrected gradually. Potassium should be treated because of her renal failure. Of note, she has only been on bisoprolol at home prior to admission that is 2.5 mg according to her daughter. No other medications. She may require digoxin for heart rate control if she is not able to tolerate beta-blockers because of hypotension and administration of pressors, Levophed would be administered for blood pressure support in the meantime in addition to some fluids. Nephrology consultation to be considered. The duration of this consultation has been 1 hour and 15 minutes. Konrad Rodas M.D. DR: SALVADOR JOB#: [id number] CC:
--- NOTE | 2018-10-02 17:00 | History and Physical Report ---
DATE OF ADMISSION: 10/02/2018 CHIEF COMPLAINT: The patient is an 87-year-old female, presents with chief complaint of not eating and hypothermia. HISTORY OF PRESENT ILLNESS: The patient is [facility] patient. Apparently, the patient underwent a cystoscopy on September 12, 2018 for placement of a renal stent. The patient was treated with antibiotics perioperatively. The patient's daughter is present. The patient's daughter states the patient has not been eating for the past three days. The patient also has been cool to touch. The patient also had constipation. The patient presented to [facility] emergency room. The patient was admitted for probable sepsis. REVIEW OF SYSTEMS: Unable to assess secondary to the patient's mental status. PAST MEDICAL HISTORY: Significant for: 1. Cardiac arrhythmia. 2. Coronary artery disease. 3. History of renal calculi as above. PAST SURGICAL HISTORY: Significant for: 1. Cystoscopy on September 12, 2018, as above. 2. Pacemaker implantation. 3. Total abdominal hysterectomy. CURRENT MEDICATIONS: Unknown. ALLERGIES: No known drug allergies. SOCIAL HISTORY: The patient is single and lives with her adult daughter. The patient denies tobacco or alcohol use. PHYSICAL EXAMINATION: VITAL SIGNS: Temperature 97.0, respirations 22, pulse 133, and blood pressure 113/96. GENERAL: The patient well-developed, well-nourished female, thin-appearing, who is more or less lethargic. HEENT: Eyes, pupils equal and responsive to light and accommodation. Extraocular movements are intact. NECK: Supple without lymphadenopathy. CHEST: Decreased breath sounds at bilateral bases. Otherwise, clear to auscultation without wheezes or rales. CARDIOVASCULAR: Tachycardic, S1, S2 normal without murmurs, rubs, or gallops. ABDOMEN: Soft, nontender, and nondistended. Positive bowel sounds. No evidence of hepatosplenomegaly. Currently, no rebound or guarding noted. EXTREMITIES: Negative for clubbing, cyanosis, or edema. LABORATORY STUDIES: WBC 18.6, hemoglobin 11.7, hematocrit 37.3, and platelets 287,000. Sodium 171, potassium 5.6, chloride 134, CO2 18, BUN 117, creatinine 5.5, glucose 87. Urinalysis showed 3+ protein, 5+ blood, 3+ leukocyte esterase with 15 to 20 rbc's. ASSESSMENT: This is an 87-year-old female. 1. Altered mental status. 2. Anorexia. 3. Tachycardia. 4. Probable urinary tract infection. 5. Probable sepsis. TREATMENT: 1. Urosepsis. An Infectious Disease consultation has been obtained with Dr. Gomes. The patient has been placed empirically on vancomycin and cefepime. 2. Tachycardia. Cardiology consultation has been obtained with Dr. Brock Nicole. The patient has a pacemaker in place. The pacemaker check will be performed during this hospitalization. 3. History of renal stent. 4. Renal failure. A Nephrology consultation has been obtained with Dr. Shaver. Guido Augustin M.D. DR: MELCHOR JOB#: [id number] CC:
[2018-10-02] MEDS: Dyna-Hex 2% Top Sol 2oz TOPIC SCH (20:00)
--- NOTE | 2018-10-02 20:00 | Consultation ---
DATE OF CONSULTATION: 10/02/2018 CARDIOLOGY CONSULTATION CONSULTING PHYSICIAN: Brock Nicole M.D. REFERRING PHYSICIAN: Moses Gaona M.D. REASON FOR CONSULTATION: Management of atrial fibrillation as well as evaluation of the patient's pacemaker. HISTORY OF PRESENT ILLNESS: The patient is an 87-year-old lady with history of atrial fibrillation and history of Biotronik pacemaker, who just last year underwent pacemaker generator change in the Biotronik device at [facility]. The patient presented was brought to the emergency room for altered mental status and was found to be septic as well as atrial fibrillation with rapid ventricular response as well as urinary tract infection and renal failure. The patient is currently on 100% non-rebreather face mask and also had elevated troponin. The patient received one liter of intravenous fluids and pancultured and started on empiric antibiotic therapy and was transferred to intensive care unit. At the time of my evaluation, the patient is poorly responsive on the facemask and the family at the bedside as well as Dr. Augusitn. PAST MEDICAL HISTORY: As mentioned above. FAMILY HISTORY: Noncontributory. SOCIAL HISTORY: She lives at home with family. Does not smoke or drink alcohol. REVIEW OF SYSTEMS: Cannot be obtained. PHYSICAL EXAMINATION: VITAL SIGNS: Show blood pressure of 105/70, pulse was as high as 135, currently 89, and respiration is 18. HEAD AND NECK: Shows mild jugular venous distention. LUNGS: Decreased breath sounds. CARDIOVASCULAR: Shows a pacemaker in the left subclavian and irregular S1 and S2. ABDOMEN: Soft. EXTREMITIES: Contracted with no edema. BREASTS: Her left breast has a mass. LABORATORY AND DIAGNOSTIC STUDIES: Her laboratories show white count initially was 18.6 and 16.7, hemoglobin of 9.2, hematocrit of 30, and platelet count was 193,000. Sodium 171, potassium is 5.6, BUN of 117, creatinine of 5.5, and glucose of 87. Troponin 0.274. BNP 2870. ASSESSMENT AND PLAN: 1. Atrial fibrillation with rapid ventricular response. This is likely secondary to severe dehydration and azotemia. The heart disease currently is better controlled. Blood pressure is borderline and is as low as 84. Hold off on beta-guille or calcium channel guille. If she gets tachycardia, may need to give her digoxin intravenous for better rate control. If the blood pressure gets more stabilized, we will start her on Cardizem. At this time, the patient is on heparin subcutaneous b.i.d., may need long-term anticoagulation. 2. Status post Biotronik pacemaker implantation. We will try to interrogate device for further evaluation. 3. Severe dehydration with severe hypernatremia, sodium 171. Intravenous fluids per Dr. Shaver. 4. Severe azotemia. BUN 117 and creatinine 5.5. IV fluids per Dr. Shaver. 5. Troponin leak likely due to renal failure, levels of 0.25 and 0.27. 6. Dementia. 7. Sepsis. On IV antibiotic. Thank you very much, Dr. Gaona, for allowing me to participate in the care of this patient. Please do not hesitate to contact me for any questions regarding my evaluation. Brock Nicole M.D. DR: DEBORAH JOB#: [id number] CC:
[2018-10-02] MEDS: Miralax 17gm pkt ORAL SCH (21:17)
[2018-10-03] VITALS (24 sets, daily range): BP systolic 97–139; BP diastolic 46–94
[2018-10-03 04:57] LABS: HEMATOCRIT 21.8 % (37.0-47.0); MEAN CORPUSCULAR VOLUME 85 FL (80-99); PLATELET COUNT 146 K/UL (150-450); RED BLOOD COUNT 2.55 M/UL (4.20-5.40); RED CELL DISTRIBUTION WIDTH 16.7 % (11.6-14.8); WHITE BLOOD COUNT 15.2 K/UL (4.8-10.8)
[2018-10-03 05:27] LABS: % IRON SATURATION 29 % (15-50); IRON 42 ug/dL (50-175); TOTAL IRON BINDING CAPACITY 144 ug/dL (250-450)
[2018-10-03 05:29] LABS: PHOSPHORUS 3.4 MG/DL (2.5-4.9)
[2018-10-03 05:31] LABS: CHOLESTEROL 105 MG/DL (< 200); HDL CHOLESTEROL 30 MG/DL (40-60); TRIGLYCERIDES 130 MG/DL (30-150)
[2018-10-03 06:20] LABS: ALANINE AMINOTRANSFERASE 26 U/L (12-78); ALBUMIN 2.6 G/DL (3.4-5.0); ALBUMIN/GLOBULIN RATIO 0.7 (1.0-2.7); ALKALINE PHOSPHATASE 76 U/L (46-116); ANION GAP 17 mmol/L (5-15); ASPARTATE AMINO TRANSFERASE 111 U/L (15-37); BILIRUBIN,TOTAL 0.3 MG/DL (0.2-1.0); BLOOD UREA NITROGEN 119 mg/dL (7-18); CALCIUM 8.4 MG/DL (8.5-10.1); CARBON DIOXIDE 15 MMOL/L (21-32); CHLORIDE 126 MMOL/L (98-107); CREATININE 4.8 MG/DL (0.55-1.30); FERRITIN 32 NG/ML (8-388); POTASSIUM 3.9 MMOL/L (3.5-5.1); SODIUM 158 MMOL/L (136-145)
[2018-10-03] MEDS ORDERED: Vancomycin 1 GM in NS 275 ML IVPB ONE (07:00)
[2018-10-03] MEDS ORDERED: Vancomycin 1gm in D5W 275ml IVPB ONE (07:00)
[2018-10-03] MEDS ORDERED: Vancomycin 1gm in D5W 275ml IVPB SCH (08:00)
[2018-10-03] MEDS: Pantoprazole Inj IVP SCH (08:25)
[2018-10-03] MEDS: Heparin 5000 units/ml inj SUBQ SCH ×2 (08:26→21:00)
[2018-10-03] MEDS: Aspirin Baby 81mg NG SCH (08:26)
--- NOTE | 2018-10-03 11:09 | Diagnostic Imaging Report ---
Indication: Shortness of breath Technique: One view of the chest Comparison: 10/01/2018 Findings: Large opacity, presumably extrinsic to the patient, overlies the upper mid abdomen. Interim placement of a nasogastric tube, tip projected beyond the edge of image, presumably in good position. The lungs and pleural spaces remain clear. The aorta is tortuous ectatic and calcified. Left chest pacemaker is again demonstrated. Impression: Satisfactory nasogastric intubation No definite acute process, or other significant interim private branch exchange installer 2 days
[2018-10-03] MEDS ORDERED: Lidocaine 1% Plain 30 ml INJ PRN (11:15)
--- NOTE | 2018-10-03 11:20 | Pulmonolgy Critical Care Note ---
Critical Care - Asmt/Plan Problems: (1) Septic shock (2) ATN (acute tubular necrosis) (3) Acute encephalopathy (4) DVT (deep venous thrombosis) (5) NSTEMI (non-ST elevated myocardial infarction) (6) Hyperkalemia (7) Severe protein-calorie malnutrition Respiratory: monitor respiratory rate, adjust FIO2, CXR Cardiac: continue to monitor HR/BP Renal: F/U I&O, increase IV fluid Infectious Disease: check cultures, continue antibiotics Gastrointestinal: continue feedings/current rate Endocrine: monitor blood sugar, check HgA1C, oral diabetic meds Hematologic: transfuse if hgb<8.5 Neurologic: PRN Ativan, keep patient comfortable Affect: PRN ativan Prophylaxis: Heparin Notes Reviewed: cardio, renal Discussed with: nurses, consultants, caser shoe parts, family member Critical Care - Objective Last 24 Hour Vital Signs Date Time Temp Pulse Resp B/P (MAP) Pulse Ox O2 Delivery O2 Flow Rate FiO2 10/03/18 09:00 89 22 134/54 (80) 96 10/03/18 08:24 122/57 10/03/18 08:00 10.0 45 10/03/18 08:00 97.9 96 23 122/57 (78) 94 10/03/18 08:00 Venturi Mask 10.0 10/03/18 07:00 85 21 119/60 (79) 100 10/03/18 06:45 Venturi Mask 10.0 45 10/03/18 06:45 103 21 Venturi Mask 10.0 45 10/03/18 06:45 99 Venturi Mask 10.0 45 10/03/18 06:00 91 19 127/55 (79) 100 10/03/18 05:00 89 20 128/91 (103) 100 10/03/18 04:00 Venturi Mask 10.0 10/03/18 04:00 99.2 95 21 132/46 (74) 100 10/03/18 04:00 95 10/03/18 04:00 10.0 45 10/03/18 03:00 90 20 136/55 (82) 100 10/03/18 02:00 88 21 115/51 (72) 100 10/03/18 01:00 85 18 97/52 (67) 100 10/03/18 00:00 85 10/03/18 00:00 97.5 83 17 121/59 (79) 100 10/03/18 00:00 Venturi Mask 10.0 10/03/18 00:00 15.0 50 10/02/18 23:00 85 18 91/68 (76) 100 10/02/18 22:00 82 16 110/48 (68) 100 10/02/18 21:00 85 21 105/64 (78) 100 10/02/18 20:00 82 10/02/18 20:00 98.3 95 20 128/51 (76) 100 10/02/18 20:00 15.0 50 10/02/18 20:00 Venturi Mask 10.0 10/02/18 19:04 87 19 Venturi Mask 12.0 50 10/02/18 19:00 82 22 116/76 (89) 100 10/02/18 18:00 87 19 122/47 (72) 100 10/02/18 17:00 87 18 104/47 (66) 100 10/02/18 16:00 Non-Rebreather 100.0 10/02/18 16:00 80 10/02/18 16:00 15.0 50 10/02/18 16:00 97.4 83 18 110/52 (71) 100 10/02/18 15:00 90 17 115/97 (103) 92 10/02/18 14:00 89 21 105/70 (82) 89 10/02/18 13:00 123 19 110/83 (92) 89 10/02/18 12:00 15.0 50 10/02/18 12:00 Non-Rebreather 100.0 10/02/18 12:00 126 10/02/18 12:00 97.2 135 24 95/80 (85) 94 Status: somnolent Condition: critical HEENT: atraumatic Neck: full ROM Lungs: rales Heart: regular, edema Abdomen: soft, non-tender Extremities: no C/C/E Decubiti: location Micro: Microbiology Date/Time Source Procedure Growth Status 10/01/18 23:30 Blood Blood Culture - Preliminary NO GROWTH AFTER 24 HOURS Resulted 10/01/18 23:20 Blood Blood Culture - Preliminary NO GROWTH AFTER 24 HOURS Resulted 10/01/18 22:40 Urine,Clean Catch Urine Culture - Preliminary Resulted Accucheck: 159 Critical Care - Subjective ROS Limited/Unobtainable: Yes ICU Day: 2 Condition: critical EKG Rhythm: Atrial Fibrillation FI02: 45 Sputum Amount: None Fluids: d5w 150 cc/hour I&O: Intake and Output 10/02/18 10/03/18 19:00 07:00 Intake Total 810 ml 1100 ml Output Total 90 ml 335 ml Balance 720 ml 765 ml Intake IV Total 810 ml 1100 ml Output Urine Total 90 ml 335 ml # Bowel Movements 4 CXR: no infiltrate Labs: Laboratory Tests Test 10/02/18 11:10 10/02/18 22:40 10/03/18 03:30 10/03/18 07:45 White Blood Count 16.7 K/UL (4.8-10.8) H 15.2 K/UL (4.8-10.8) H Red Blood Count 3.45 M/UL (4.20-5.40) L 2.55 M/UL (4.20-5.40) L Hemoglobin 9.2 G/DL (12.0-16.0) L 7.0 G/DL (12.0-16.0) L Hematocrit 29.9 % (37.0-47.0) L 21.8 % (37.0-47.0) L Mean Corpuscular Volume 87 FL (80-99) 85 FL (80-99) Mean Corpuscular Hemoglobin 26.7 PG (27.0-31.0) L 27.4 PG (27.0-31.0) Mean Corpuscular Hemoglobin Concent 30.9 G/DL (32.0-36.0) L 32.0 G/DL (32.0-36.0) Red Cell Distribution Width 17.1 % (11.6-14.8) H 16.7 % (11.6-14.8) H Platelet Count 193 K/UL (150-450) 146 K/UL (150-450) L Mean Platelet Volume 7.2 FL (6.5-10.1) 8.6 FL (6.5-10.1) Neutrophils (%) (Auto) % (45.0-75.0) % (45.0-75.0) Lymphocytes (%) (Auto) % (20.0-45.0) % (20.0-45.0) Monocytes (%) (Auto) % (1.0-10.0) % (1.0-10.0) Eosinophils (%) (Auto) % (0.0-3.0) % (0.0-3.0) Basophils (%) (Auto) % (0.0-2.0) % (0.0-2.0) Differential Total Cells Counted 100 100 Neutrophils % (Manual) 80 % (45-75) H 75 % (45-75) Lymphocytes % (Manual) 5 % (20-45) L 9 % (20-45) L Monocytes % (Manual) 7 % (1-10) 3 % (1-10) Eosinophils % (Manual) 0 % (0-3) 0 % (0-3) Basophils % (Manual) 0 % (0-2) 0 % (0-2) Band Neutrophils 8 % (0-8) 13 % (0-8) H Platelet Estimate Adequate Decreased L Platelet Morphology Normal Normal Hypochromasia 1+ 1+ Anisocytosis 1+ 2+ Prothrombin Time 13.2 SEC (9.30-11.50) H Prothromb Time International Ratio 1.3 (0.9-1.1) H Sodium Level 171 MMOL/L (136-145) *H 158 MMOL/L (136-145) #H Potassium Level 5.6 MMOL/L (3.5-5.1) H 3.9 MMOL/L (3.5-5.1) Chloride Level 134 MMOL/L (98-107) H 126 MMOL/L (98-107) H Carbon Dioxide Level 18 MMOL/L (21-32) L 15 MMOL/L (21-32) L Anion Gap 18 mmol/L (5-15) H 17 mmol/L (5-15) H Blood Urea Nitrogen 117 mg/dL (7-18) H 119 mg/dL (7-18) H Creatinine 5.5 MG/DL (0.55-1.30) H 4.8 MG/DL (0.55-1.30) H Estimat Glomerular Filtration Rate mL/min (>60) mL/min (>60) Glucose Level 87 MG/DL (74-106) 104 MG/DL (74-106) Calcium Level 9.0 MG/DL (8.5-10.1) 8.4 MG/DL (8.5-10.1) L Phosphorus Level 5.4 MG/DL (2.5-4.9) H 3.4 MG/DL (2.5-4.9) Magnesium Level 2.5 MG/DL (1.8-2.4) H 1.7 MG/DL (1.8-2.4) L Total Bilirubin 0.4 MG/DL (0.2-1.0) 0.3 MG/DL (0.2-1.0) Aspartate Amino Transf (AST/SGOT) 118 U/L (15-37) H 111 U/L (15-37) H Alanine Aminotransferase (ALT/SGPT) 30 U/L (12-78) 26 U/L (12-78) Alkaline Phosphatase 83 U/L (46-116) 76 U/L (46-116) Troponin I 0.274 ng/mL (0.000-0.056) 0.278 ng/mL (0.000-0.056) C-Reactive Protein, Quantitative 10.6 mg/dL (0.00-0.90) H Pro-B-Type Natriuretic Peptide 2817 pg/mL (0-125) H 3750 pg/mL (0-125) H Total Protein 6.5 G/DL (6.4-8.2) 6.1 G/DL (6.4-8.2) L Albumin 2.3 G/DL (3.4-5.0) L 2.6 G/DL (3.4-5.0) L Globulin 4.2 g/dL 3.5 g/dL Albumin/Globulin Ratio 0.5 (1.0-2.7) L 0.7 (1.0-2.7) L Urine Osmolality 366 mOsm/kg (429-449) L Urine Random Sodium 70 mmol/L (20-110) Urine Creatinine 85.8 MG/DL (30.0-125.0) Lactic Acid Level 2.10 mmol/L (0.4-2.0) H Uric Acid 12.3 MG/DL (2.6-7.2) H Iron Level 42 ug/dL (50-175) L Total Iron Binding Capacity 144 ug/dL (250-450) L Percent Iron Saturation 29 % (15-50) Unsaturated Iron Binding 102 ug/dL (112-346) L Ferritin 32 NG/ML (8-388) Triglycerides Level 130 MG/DL (30-150) Cholesterol Level 105 MG/DL (< 200) LDL Cholesterol 61 mg/dL (<100) HDL Cholesterol 30 MG/DL (40-60) L Cholesterol/HDL Ratio 3.5 (3.3-4.4) Vitamin B12 Level 841 PG/ML (193-986) Folate 16.5 NG/ML (8.6-58.9) Thyroid Stimulating Hormone (TSH) 0.926 uiU/mL (0.358-3.740) Cortisol AM Sample Pending Random Vancomycin Level 13.4 ug/mL Arterial Blood pH 7.377 (7.350-7.450) Arterial Blood Partial Pressure CO2 23.4 mmHg (35.0-45.0) *L Arterial Blood Partial Pressure O2 189.0 mmHg (75.0-100.0) H Arterial Blood HCO3 13.4 mmol/L (22.0-26.0) *L Arterial Blood Oxygen Saturation 98.3 % (95-100) Arterial Blood Base Excess -10.6 (-2-2) *L Michele Test Positive Test 10/03/18 08:50 Lactic Acid Level 3.20 mmol/L (0.66-2.22) H Camila Aquino MD Oct 03, 2018 11:20
--- NOTE | 2018-10-03 14:26 | Cardiology Progress Note ---
Assessment/Plan Assessment/Plan 1. Atrial fibrillation with rapid ventricular response, appears to be possibly permanent. 2. Respiratory failure with hypoxemia. 3. Hypotension/septic shock. 4. History of skin cancer, basal cell carcinoma to the lymph nodes. 5. 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 6. History of myocardial infarction. No intervention in 2003. 7. History of diverticulitis. 8. History of recent ureteral stent replacement. 9. DVT acute 10. anemia ivc filter planned prelim echo noted ef ok need to review intermittently agitated tele noted afib ekg noted cxr noted prelim echo noted trop not change unlikely related to coronary ischemia pulm moreno she is better will need feeding mechanism to allow resumption of bisoprolol via ngt has a pacer still quite agitated and confused previously felt not to be a candidate for nursing home anticoag per dtr due to fall risk although she will not be walking at least at this point stool ob pending prbc tx Subjective ROS Limited/Unobtainable: Yes Objective Last 24 Hour Vital Signs Date Time Temp Pulse Resp B/P (MAP) Pulse Ox O2 Delivery O2 Flow Rate FiO2 10/03/18 13:00 89 20 139/64 (89) 95 10/03/18 12:00 84 10/03/18 12:00 10.0 45 10/03/18 12:00 Venturi Mask 10.0 10/03/18 12:00 98.8 84 21 119/46 (70) 100 10/03/18 11:00 86 20 128/52 (77) 95 10/03/18 10:00 91 22 108/56 (73) 96 10/03/18 09:00 89 22 134/54 (80) 96 10/03/18 08:24 122/57 10/03/18 08:00 10.0 45 10/03/18 08:00 94 10/03/18 08:00 97.9 96 23 122/57 (78) 94 10/03/18 08:00 Venturi Mask 10.0 10/03/18 07:00 85 21 119/60 (79) 100 10/03/18 06:45 Venturi Mask 10.0 45 10/03/18 06:45 103 21 Venturi Mask 10.0 45 10/03/18 06:45 99 Venturi Mask 10.0 45 10/03/18 06:00 91 19 127/55 (79) 100 10/03/18 05:00 89 20 128/91 (103) 100 10/03/18 04:00 Venturi Mask 10.0 10/03/18 04:00 99.2 95 21 132/46 (74) 100 10/03/18 04:00 95 10/03/18 04:00 10.0 45 10/03/18 03:00 90 20 136/55 (82) 100 10/03/18 02:00 88 21 115/51 (72) 100 10/03/18 01:00 85 18 97/52 (67) 100 10/03/18 00:00 85 10/03/18 00:00 97.5 83 17 121/59 (79) 100 10/03/18 00:00 Venturi Mask 10.0 10/03/18 00:00 15.0 50 10/02/18 23:00 85 18 91/68 (76) 100 10/02/18 22:00 82 16 110/48 (68) 100 10/02/18 21:00 85 21 105/64 (78) 100 10/02/18 20:00 82 10/02/18 20:00 98.3 95 20 128/51 (76) 100 10/02/18 20:00 15.0 50 10/02/18 20:00 Venturi Mask 10.0 10/02/18 19:04 87 19 Venturi Mask 12.0 50 10/02/18 19:00 82 22 116/76 (89) 100 10/02/18 18:00 87 19 122/47 (72) 100 10/02/18 17:00 87 18 104/47 (66) 100 10/02/18 16:00 Non-Rebreather 100.0 10/02/18 16:00 80 10/02/18 16:00 15.0 50 10/02/18 16:00 97.4 83 18 110/52 (71) 100 10/02/18 15:00 90 17 115/97 (103) 92 General Appearance: other - confused Neck: supple Cardiovascular: irregularly irregular Respiratory/Chest: lungs clear Abdomen: normal bowel sounds, non tender, soft Extremities: no swelling Intake and Output 10/02/18 10/03/18 19:00 07:00 Intake Total 810 ml 1100 ml Output Total 90 ml 335 ml Balance 720 ml 765 ml Intake IV Total 810 ml 1100 ml Output Urine Total 90 ml 335 ml # Bowel Movements 4 Laboratory Tests Test 10/02/18 22:40 10/03/18 03:30 10/03/18 07:45 10/03/18 08:50 Urine Osmolality 366 mOsm/kg (429-449) L Urine Random Sodium 70 mmol/L (20-110) Urine Creatinine 85.8 MG/DL (30.0-125.0) White Blood Count 15.2 K/UL (4.8-10.8) H Red Blood Count 2.55 M/UL (4.20-5.40) L Hemoglobin 7.0 G/DL (12.0-16.0) L Hematocrit 21.8 % (37.0-47.0) L Mean Corpuscular Volume 85 FL (80-99) Mean Corpuscular Hemoglobin 27.4 PG (27.0-31.0) Mean Corpuscular Hemoglobin Concent 32.0 G/DL (32.0-36.0) Red Cell Distribution Width 16.7 % (11.6-14.8) H Platelet Count 146 K/UL (150-450) L Mean Platelet Volume 8.6 FL (6.5-10.1) Neutrophils (%) (Auto) % (45.0-75.0) Lymphocytes (%) (Auto) % (20.0-45.0) Monocytes (%) (Auto) % (1.0-10.0) Eosinophils (%) (Auto) % (0.0-3.0) Basophils (%) (Auto) % (0.0-2.0) Differential Total Cells Counted 100 Neutrophils % (Manual) 75 % (45-75) Lymphocytes % (Manual) 9 % (20-45) L Monocytes % (Manual) 3 % (1-10) Eosinophils % (Manual) 0 % (0-3) Basophils % (Manual) 0 % (0-2) Band Neutrophils 13 % (0-8) H Platelet Estimate Decreased L Platelet Morphology Normal Hypochromasia 1+ Anisocytosis 2+ Sodium Level 158 MMOL/L (136-145) #H Potassium Level 3.9 MMOL/L (3.5-5.1) Chloride Level 126 MMOL/L (98-107) H Carbon Dioxide Level 15 MMOL/L (21-32) L Anion Gap 17 mmol/L (5-15) H Blood Urea Nitrogen 119 mg/dL (7-18) H Creatinine 4.8 MG/DL (0.55-1.30) H Estimat Glomerular Filtration Rate mL/min (>60) Glucose Level 104 MG/DL (74-106) Lactic Acid Level 2.10 mmol/L (0.4-2.0) H 3.20 mmol/L (0.66-2.22) H Uric Acid 12.3 MG/DL (2.6-7.2) H Calcium Level 8.4 MG/DL (8.5-10.1) L Phosphorus Level 3.4 MG/DL (2.5-4.9) Magnesium Level 1.7 MG/DL (1.8-2.4) L Iron Level 42 ug/dL (50-175) L Total Iron Binding Capacity 144 ug/dL (250-450) L Percent Iron Saturation 29 % (15-50) Unsaturated Iron Binding 102 ug/dL (112-346) L Ferritin 32 NG/ML (8-388) Total Bilirubin 0.3 MG/DL (0.2-1.0) Aspartate Amino Transf (AST/SGOT) 111 U/L (15-37) H Alanine Aminotransferase (ALT/SGPT) 26 U/L (12-78) Alkaline Phosphatase 76 U/L (46-116) Troponin I 0.278 ng/mL (0.000-0.056) Pro-B-Type Natriuretic Peptide 3750 pg/mL (0-125) H Total Protein 6.1 G/DL (6.4-8.2) L Albumin 2.6 G/DL (3.4-5.0) L Globulin 3.5 g/dL Albumin/Globulin Ratio 0.7 (1.0-2.7) L Triglycerides Level 130 MG/DL (30-150) Cholesterol Level 105 MG/DL (< 200) LDL Cholesterol 61 mg/dL (<100) HDL Cholesterol 30 MG/DL (40-60) L Cholesterol/HDL Ratio 3.5 (3.3-4.4) Vitamin B12 Level 841 PG/ML (193-986) Folate 16.5 NG/ML (8.6-58.9) Thyroid Stimulating Hormone (TSH) 0.926 uiU/mL (0.358-3.740) Cortisol AM Sample 18.9 UG/DL Random Vancomycin Level 13.4 ug/mL Arterial Blood pH 7.377 (7.350-7.450) Arterial Blood Partial Pressure CO2 23.4 mmHg (35.0-45.0) *L Arterial Blood Partial Pressure O2 189.0 mmHg (75.0-100.0) H Arterial Blood HCO3 13.4 mmol/L (22.0-26.0) *L Arterial Blood Oxygen Saturation 98.3 % (95-100) Arterial Blood Base Excess -10.6 (-2-2) *L Michele Test Positive Microbiology Date/Time Source Procedure Growth Status 10/01/18 23:30 Blood Blood Culture - Preliminary NO GROWTH AFTER 24 HOURS Resulted 10/01/18 23:20 Blood Blood Culture - Preliminary NO GROWTH AFTER 24 HOURS Resulted 10/01/18 22:40 Urine,Clean Catch Urine Culture - Preliminary Resulted Konrad Rodas MD Oct 03, 2018 14:26
--- NOTE | 2018-10-03 14:41 | Nephrology Progress Note ---
Assessment/Plan Problem List: (1) ATN (acute tubular necrosis) (2) Septic shock (3) NSTEMI (non-ST elevated myocardial infarction) (4) Hyperkalemia Assessment Acute renal failure / Hyperkalemia Sepsis / Shock / UTI NSTEMI (non-ST elevated myocardial infarction) Plan transfuse Fluid challenge D5W Antibiotics Avoid Nephrotoxics Urine studies pulmonary support poor prognosis Subjective ROS Limited/Unobtainable: Yes Objective Objective Last 24 Hour Vital Signs Date Time Temp Pulse Resp B/P (MAP) Pulse Ox O2 Delivery O2 Flow Rate FiO2 10/03/18 13:00 89 20 139/64 (89) 95 10/03/18 12:00 84 10/03/18 12:00 10.0 45 10/03/18 12:00 Venturi Mask 10.0 10/03/18 12:00 98.8 84 21 119/46 (70) 100 10/03/18 11:00 86 20 128/52 (77) 95 10/03/18 10:00 91 22 108/56 (73) 96 10/03/18 09:00 89 22 134/54 (80) 96 10/03/18 08:24 122/57 10/03/18 08:00 10.0 45 10/03/18 08:00 94 10/03/18 08:00 97.9 96 23 122/57 (78) 94 10/03/18 08:00 Venturi Mask 10.0 10/03/18 07:00 85 21 119/60 (79) 100 10/03/18 06:45 Venturi Mask 10.0 45 10/03/18 06:45 103 21 Venturi Mask 10.0 45 10/03/18 06:45 99 Venturi Mask 10.0 45 10/03/18 06:00 91 19 127/55 (79) 100 10/03/18 05:00 89 20 128/91 (103) 100 10/03/18 04:00 Venturi Mask 10.0 10/03/18 04:00 99.2 95 21 132/46 (74) 100 10/03/18 04:00 95 10/03/18 04:00 10.0 45 10/03/18 03:00 90 20 136/55 (82) 100 10/03/18 02:00 88 21 115/51 (72) 100 10/03/18 01:00 85 18 97/52 (67) 100 10/03/18 00:00 85 10/03/18 00:00 97.5 83 17 121/59 (79) 100 10/03/18 00:00 Venturi Mask 10.0 10/03/18 00:00 15.0 50 10/02/18 23:00 85 18 91/68 (76) 100 10/02/18 22:00 82 16 110/48 (68) 100 10/02/18 21:00 85 21 105/64 (78) 100 10/02/18 20:00 82 10/02/18 20:00 98.3 95 20 128/51 (76) 100 10/02/18 20:00 15.0 50 10/02/18 20:00 Venturi Mask 10.0 10/02/18 19:04 87 19 Venturi Mask 12.0 50 10/02/18 19:00 82 22 116/76 (89) 100 10/02/18 18:00 87 19 122/47 (72) 100 10/02/18 17:00 87 18 104/47 (66) 100 10/02/18 16:00 Non-Rebreather 100.0 10/02/18 16:00 80 10/02/18 16:00 15.0 50 10/02/18 16:00 97.4 83 18 110/52 (71) 100 10/02/18 15:00 90 17 115/97 (103) 92 Intake and Output 10/02/18 10/03/18 19:00 07:00 Intake Total 810 ml 1100 ml Output Total 90 ml 335 ml Balance 720 ml 765 ml Intake IV Total 810 ml 1100 ml Output Urine Total 90 ml 335 ml # Bowel Movements 4 Laboratory Tests 10/02/18 22:40: Urine Osmolality 366L, Urine Random Sodium 70, Urine Creatinine 85.8 10/03/18 03:30: White Blood Count 15.2H, Red Blood Count 2.55L, Hemoglobin 7.0L, Hematocrit 21.8L, Mean Corpuscular Volume 85, Mean Corpuscular Hemoglobin 27.4, Mean Corpuscular Hemoglobin Concent 32.0, Red Cell Distribution Width 16.7H, Platelet Count 146L, Mean Platelet Volume 8.6, Neutrophils (%) (Auto) , Lymphocytes (%) (Auto) , Monocytes (%) (Auto) , Eosinophils (%) (Auto) , Basophils (%) (Auto) , Differential Total Cells Counted 100, Neutrophils % ( Manual) 75, Lymphocytes % (Manual) 9L, Monocytes % (Manual) 3, Eosinophils % ( Manual) 0, Basophils % (Manual) 0, Band Neutrophils 13H, Platelet Estimate DecreasedL, Platelet Morphology Normal, Hypochromasia 1+, Anisocytosis 2+, Sodium Level 158#H, Potassium Level 3.9, Chloride Level 126H, Carbon Dioxide Level 15L, Anion Gap 17H, Blood Urea Nitrogen 119H, Creatinine 4.8H, Estimat Glomerular Filtration Rate , Glucose Level 104, Lactic Acid Level 2.10H, Uric Acid 12.3H, Calcium Level 8.4L, Phosphorus Level 3.4, Magnesium Level 1.7L, Iron Level 42L, Total Iron Binding Capacity 144L, Percent Iron Saturation 29, Unsaturated Iron Binding 102L, Ferritin 32, Total Bilirubin 0.3, Aspartate Amino Transf (AST/SGOT) 111H, Alanine Aminotransferase (ALT/SGPT) 26, Alkaline Phosphatase 76, Troponin I 0.278H, Pro-B-Type Natriuretic Peptide 3750H, Total Protein 6.1L, Albumin 2.6L, Globulin 3.5, Albumin/Globulin Ratio 0.7L, Triglycerides Level 130, Cholesterol Level 105, LDL Cholesterol 61, HDL Cholesterol 30L, Cholesterol/HDL Ratio 3.5, Vitamin B12 Level 841, Folate 16.5, Thyroid Stimulating Hormone (TSH) 0.926, Cortisol AM Sample 18.9, Random Vancomycin Level 13.4 10/03/18 07:45: Arterial Blood pH 7.377, Arterial Blood Partial Pressure CO2 23.4*L, Arterial Blood Partial Pressure O2 189.0H, Arterial Blood HCO3 13.4*L, Arterial Blood Oxygen Saturation 98.3, Arterial Blood Base Excess -10.6*L, Michele Test Positive 10/03/18 08:50: Lactic Acid Level 3.20H Height (Feet): 5 Height (Inches): 4.00 Weight (Pounds): 107 General Appearance: mild distress Cardiovascular: tachycardia Respiratory/Chest: decreased breath sounds Abdomen: soft Doc Shaver MD Oct 03, 2018 14:41
--- NOTE | 2018-10-03 14:59 | Cardiac Electrophysiology PN ---
Assessment/Plan Assessment/Plan 1. Atrial fibrillation with rapid ventricular response. Likely secondary to severe dehydration and azotemia. Hold off on beta-guille or calcium channel guille as blood pressure is borderline and is as low as 84. If she gets tachycardia, may need to give her digoxin intravenous for better rate control. If the blood pressure gets more stabilized, we will start her on Cardizem. 2. Status post Biotronik pacemaker implantation. Interrogation pending 3. Severe dehydration with severe hypernatremia, sodium 171. Intravenous fluids per Dr. Shaver.Improved to 158 4. Severe azotemia. BUN 117 and creatinine 5.5. IV fluids per Dr. Shaver. 5. Troponin leak likely due to renal failure, levels of 0.25 and 0.27. 6. Dementia. 7. Sepsis. On IV antibiotic. Subjective Subjective Still in atrial Fib, Biotronic pacer interrogation pending. On Venturi mask. Awaiting blood transfusion as Hb was 7. IVC filter pending Objective Last 24 Hour Vital Signs Date Time Temp Pulse Resp B/P (MAP) Pulse Ox O2 Delivery O2 Flow Rate FiO2 10/03/18 13:00 89 20 139/64 (89) 95 10/03/18 12:00 84 10/03/18 12:00 10.0 45 10/03/18 12:00 Venturi Mask 10.0 10/03/18 12:00 98.8 84 21 119/46 (70) 100 10/03/18 11:00 86 20 128/52 (77) 95 10/03/18 10:00 91 22 108/56 (73) 96 10/03/18 09:00 89 22 134/54 (80) 96 10/03/18 08:24 122/57 10/03/18 08:00 10.0 45 10/03/18 08:00 94 10/03/18 08:00 97.9 96 23 122/57 (78) 94 10/03/18 08:00 Venturi Mask 10.0 10/03/18 07:00 85 21 119/60 (79) 100 10/03/18 06:45 Venturi Mask 10.0 45 10/03/18 06:45 103 21 Venturi Mask 10.0 45 10/03/18 06:45 99 Venturi Mask 10.0 45 10/03/18 06:00 91 19 127/55 (79) 100 10/03/18 05:00 89 20 128/91 (103) 100 10/03/18 04:00 Venturi Mask 10.0 10/03/18 04:00 99.2 95 21 132/46 (74) 100 10/03/18 04:00 95 10/03/18 04:00 10.0 45 10/03/18 03:00 90 20 136/55 (82) 100 10/03/18 02:00 88 21 115/51 (72) 100 10/03/18 01:00 85 18 97/52 (67) 100 10/03/18 00:00 85 10/03/18 00:00 97.5 83 17 121/59 (79) 100 10/03/18 00:00 Venturi Mask 10.0 10/03/18 00:00 15.0 50 10/02/18 23:00 85 18 91/68 (76) 100 10/02/18 22:00 82 16 110/48 (68) 100 10/02/18 21:00 85 21 105/64 (78) 100 10/02/18 20:00 82 10/02/18 20:00 98.3 95 20 128/51 (76) 100 10/02/18 20:00 15.0 50 10/02/18 20:00 Venturi Mask 10.0 10/02/18 19:04 87 19 Venturi Mask 12.0 50 10/02/18 19:00 82 22 116/76 (89) 100 10/02/18 18:00 87 19 122/47 (72) 100 10/02/18 17:00 87 18 104/47 (66) 100 10/02/18 16:00 Non-Rebreather 100.0 10/02/18 16:00 80 10/02/18 16:00 15.0 50 10/02/18 16:00 97.4 83 18 110/52 (71) 100 10/02/18 15:00 90 17 115/97 (103) 92 Intake and Output 10/02/18 10/03/18 19:00 07:00 Intake Total 810 ml 1100 ml Output Total 90 ml 335 ml Balance 720 ml 765 ml Intake IV Total 810 ml 1100 ml Output Urine Total 90 ml 335 ml # Bowel Movements 4 Laboratory Tests Test 10/02/18 22:40 10/03/18 03:30 10/03/18 07:45 10/03/18 08:50 Urine Osmolality 366 mOsm/kg (429-449) L Urine Random Sodium 70 mmol/L (20-110) Urine Creatinine 85.8 MG/DL (30.0-125.0) White Blood Count 15.2 K/UL (4.8-10.8) H Red Blood Count 2.55 M/UL (4.20-5.40) L Hemoglobin 7.0 G/DL (12.0-16.0) L Hematocrit 21.8 % (37.0-47.0) L Mean Corpuscular Volume 85 FL (80-99) Mean Corpuscular Hemoglobin 27.4 PG (27.0-31.0) Mean Corpuscular Hemoglobin Concent 32.0 G/DL (32.0-36.0) Red Cell Distribution Width 16.7 % (11.6-14.8) H Platelet Count 146 K/UL (150-450) L Mean Platelet Volume 8.6 FL (6.5-10.1) Neutrophils (%) (Auto) % (45.0-75.0) Lymphocytes (%) (Auto) % (20.0-45.0) Monocytes (%) (Auto) % (1.0-10.0) Eosinophils (%) (Auto) % (0.0-3.0) Basophils (%) (Auto) % (0.0-2.0) Differential Total Cells Counted 100 Neutrophils % (Manual) 75 % (45-75) Lymphocytes % (Manual) 9 % (20-45) L Monocytes % (Manual) 3 % (1-10) Eosinophils % (Manual) 0 % (0-3) Basophils % (Manual) 0 % (0-2) Band Neutrophils 13 % (0-8) H Platelet Estimate Decreased L Platelet Morphology Normal Hypochromasia 1+ Anisocytosis 2+ Sodium Level 158 MMOL/L (136-145) #H Potassium Level 3.9 MMOL/L (3.5-5.1) Chloride Level 126 MMOL/L (98-107) H Carbon Dioxide Level 15 MMOL/L (21-32) L Anion Gap 17 mmol/L (5-15) H Blood Urea Nitrogen 119 mg/dL (7-18) H Creatinine 4.8 MG/DL (0.55-1.30) H Estimat Glomerular Filtration Rate mL/min (>60) Glucose Level 104 MG/DL (74-106) Lactic Acid Level 2.10 mmol/L (0.4-2.0) H 3.20 mmol/L (0.66-2.22) H Uric Acid 12.3 MG/DL (2.6-7.2) H Calcium Level 8.4 MG/DL (8.5-10.1) L Phosphorus Level 3.4 MG/DL (2.5-4.9) Magnesium Level 1.7 MG/DL (1.8-2.4) L Iron Level 42 ug/dL (50-175) L Total Iron Binding Capacity 144 ug/dL (250-450) L Percent Iron Saturation 29 % (15-50) Unsaturated Iron Binding 102 ug/dL (112-346) L Ferritin 32 NG/ML (8-388) Total Bilirubin 0.3 MG/DL (0.2-1.0) Aspartate Amino Transf (AST/SGOT) 111 U/L (15-37) H Alanine Aminotransferase (ALT/SGPT) 26 U/L (12-78) Alkaline Phosphatase 76 U/L (46-116) Troponin I 0.278 ng/mL (0.000-0.056) Pro-B-Type Natriuretic Peptide 3750 pg/mL (0-125) H Total Protein 6.1 G/DL (6.4-8.2) L Albumin 2.6 G/DL (3.4-5.0) L Globulin 3.5 g/dL Albumin/Globulin Ratio 0.7 (1.0-2.7) L Triglycerides Level 130 MG/DL (30-150) Cholesterol Level 105 MG/DL (< 200) LDL Cholesterol 61 mg/dL (<100) HDL Cholesterol 30 MG/DL (40-60) L Cholesterol/HDL Ratio 3.5 (3.3-4.4) Vitamin B12 Level 841 PG/ML (193-986) Folate 16.5 NG/ML (8.6-58.9) Thyroid Stimulating Hormone (TSH) 0.926 uiU/mL (0.358-3.740) Cortisol AM Sample 18.9 UG/DL Random Vancomycin Level 13.4 ug/mL Arterial Blood pH 7.377 (7.350-7.450) Arterial Blood Partial Pressure CO2 23.4 mmHg (35.0-45.0) *L Arterial Blood Partial Pressure O2 189.0 mmHg (75.0-100.0) H Arterial Blood HCO3 13.4 mmol/L (22.0-26.0) *L Arterial Blood Oxygen Saturation 98.3 % (95-100) Arterial Blood Base Excess -10.6 (-2-2) *L Michele Test Positive Microbiology Date/Time Source Procedure Growth Status 10/01/18 23:30 Blood Blood Culture - Preliminary NO GROWTH AFTER 24 HOURS Resulted 10/01/18 23:20 Blood Blood Culture - Preliminary NO GROWTH AFTER 24 HOURS Resulted 10/01/18 22:40 Urine,Clean Catch Urine Culture - Preliminary Resulted Objective HEAD AND NECK: Mild jugular venous distention. LUNGS: Decreased breath sounds. CARDIOVASCULAR: Pacemaker in the left subclavian and irregular S1 and S2. ABDOMEN: Soft. EXTREMITIES: Contracted with no edema. BREASTS: Her left breast has a mass. Brock Nicole MD Oct 03, 2018 14:59
[2018-10-03] MEDS: Cefepime HCl 0.5 GM in D5W 55 ML IVPB SCH (15:39)
--- NOTE | 2018-10-03 16:42 | Consultation ---
History of Present Illness General Date patient seen: Oct 03, 2018 Chief Complaint: Altered Level of Consciousness Referring physician: dr Gaona Reason for Consultation: sepsis. resp failure Present Illness HPI 87 y/o F with hx of Afib s/p PPM, dysphagia, Nephrolithiasis, CAD, HTN, endometrial tumor s/p hysterectomy 2005, sacral decubitus ulcer presents to ED on 10/02 with lethargy, poor PO intake. Patient was found to be septic and on Afib with RVR, renal failure, respiratory distress requiring 100% non rebreather mask, high Na and K. Patient admitted to the ICU. No cough, f/c n/v/d Of note, recently at [place] and received antibiotics. Underwent cystoscopy on for placement of renal stent. Allergies: Coded Allergies: No Known Allergies (Unverified , 01/02/13) Medication History Scheduled No Known Medications* (NKM - No Known Medications*), 0 ., (Reported) Patient History Healthcare decision maker Resuscitation status Full Code Advanced Directive on File Patient History Narrative Pmhx: as above Shx: She lives at home with family. Does not smoke or drink alcohol. Fhx: non contributory Physical Exam Physical Exam Narrative GENERAL: The patient well-developed, well-nourished female, thin-appearing, who is more or less lethargic. HEENT: Eyes, pupils equal and responsive to light and accommodation. Extraocular movements are intact. NECK: Supple without lymphadenopathy. CHEST: Decreased breath sounds at bilateral bases. Otherwise, clear to auscultation without wheezes or rales. CARDIOVASCULAR: Tachycardic, S1, S2 normal without murmurs, rubs, or gallops. ABDOMEN: Soft, nontender, and nondistended. Positive bowel sounds. No evidence of hepatosplenomegaly. Currently, no rebound or guarding noted. EXTREMITIES: Negative for clubbing, cyanosis, or edema. Last 24 Hour Vital Signs Date Time Temp Pulse Resp B/P (MAP) Pulse Ox O2 Delivery O2 Flow Rate FiO2 10/03/18 15:00 96 19 128/57 (80) 95 10/03/18 14:00 90 21 112/64 (80) 95 10/03/18 13:00 89 20 139/64 (89) 95 10/03/18 12:00 84 10/03/18 12:00 10.0 45 10/03/18 12:00 Venturi Mask 10.0 10/03/18 12:00 98.8 84 21 119/46 (70) 100 10/03/18 11:00 86 20 128/52 (77) 95 10/03/18 10:00 91 22 108/56 (73) 96 10/03/18 09:00 89 22 134/54 (80) 96 10/03/18 08:24 122/57 10/03/18 08:00 10.0 45 10/03/18 08:00 94 10/03/18 08:00 97.9 96 23 122/57 (78) 94 10/03/18 08:00 Venturi Mask 10.0 10/03/18 07:00 85 21 119/60 (79) 100 10/03/18 06:45 Venturi Mask 10.0 45 10/03/18 06:45 103 21 Venturi Mask 10.0 45 10/03/18 06:45 99 Venturi Mask 10.0 45 10/03/18 06:00 91 19 127/55 (79) 100 10/03/18 05:00 89 20 128/91 (103) 100 10/03/18 04:00 Venturi Mask 10.0 10/03/18 04:00 99.2 95 21 132/46 (74) 100 10/03/18 04:00 95 10/03/18 04:00 10.0 45 10/03/18 03:00 90 20 136/55 (82) 100 10/03/18 02:00 88 21 115/51 (72) 100 10/03/18 01:00 85 18 97/52 (67) 100 10/03/18 00:00 85 10/03/18 00:00 97.5 83 17 121/59 (79) 100 10/03/18 00:00 Venturi Mask 10.0 10/03/18 00:00 15.0 50 10/02/18 23:00 85 18 91/68 (76) 100 10/02/18 22:00 82 16 110/48 (68) 100 10/02/18 21:00 85 21 105/64 (78) 100 10/02/18 20:00 82 10/02/18 20:00 98.3 95 20 128/51 (76) 100 10/02/18 20:00 15.0 50 10/02/18 20:00 Venturi Mask 10.0 10/02/18 19:04 87 19 Venturi Mask 12.0 50 10/02/18 19:00 82 22 116/76 (89) 100 10/02/18 18:00 87 19 122/47 (72) 100 10/02/18 17:00 87 18 104/47 (66) 100 Intake and Output 10/02/18 10/03/18 19:00 07:00 Intake Total 810 ml 1100 ml Output Total 90 ml 335 ml Balance 720 ml 765 ml Intake IV Total 810 ml 1100 ml Output Urine Total 90 ml 335 ml # Bowel Movements 4 Laboratory Tests Test 10/02/18 22:40 10/03/18 03:30 10/03/18 07:45 10/03/18 08:50 Urine Osmolality 366 mOsm/kg (429-449) L Urine Random Sodium 70 mmol/L (20-110) Urine Creatinine 85.8 MG/DL (30.0-125.0) White Blood Count 15.2 K/UL (4.8-10.8) H Red Blood Count 2.55 M/UL (4.20-5.40) L Hemoglobin 7.0 G/DL (12.0-16.0) L Hematocrit 21.8 % (37.0-47.0) L Mean Corpuscular Volume 85 FL (80-99) Mean Corpuscular Hemoglobin 27.4 PG (27.0-31.0) Mean Corpuscular Hemoglobin Concent 32.0 G/DL (32.0-36.0) Red Cell Distribution Width 16.7 % (11.6-14.8) H Platelet Count 146 K/UL (150-450) L Mean Platelet Volume 8.6 FL (6.5-10.1) Neutrophils (%) (Auto) % (45.0-75.0) Lymphocytes (%) (Auto) % (20.0-45.0) Monocytes (%) (Auto) % (1.0-10.0) Eosinophils (%) (Auto) % (0.0-3.0) Basophils (%) (Auto) % (0.0-2.0) Differential Total Cells Counted 100 Neutrophils % (Manual) 75 % (45-75) Lymphocytes % (Manual) 9 % (20-45) L Monocytes % (Manual) 3 % (1-10) Eosinophils % (Manual) 0 % (0-3) Basophils % (Manual) 0 % (0-2) Band Neutrophils 13 % (0-8) H Platelet Estimate Decreased L Platelet Morphology Normal Hypochromasia 1+ Anisocytosis 2+ Sodium Level 158 MMOL/L (136-145) #H Potassium Level 3.9 MMOL/L (3.5-5.1) Chloride Level 126 MMOL/L (98-107) H Carbon Dioxide Level 15 MMOL/L (21-32) L Anion Gap 17 mmol/L (5-15) H Blood Urea Nitrogen 119 mg/dL (7-18) H Creatinine 4.8 MG/DL (0.55-1.30) H Estimat Glomerular Filtration Rate mL/min (>60) Glucose Level 104 MG/DL (74-106) Lactic Acid Level 2.10 mmol/L (0.4-2.0) H 3.20 mmol/L (0.66-2.22) H Uric Acid 12.3 MG/DL (2.6-7.2) H Calcium Level 8.4 MG/DL (8.5-10.1) L Phosphorus Level 3.4 MG/DL (2.5-4.9) Magnesium Level 1.7 MG/DL (1.8-2.4) L Iron Level 42 ug/dL (50-175) L Total Iron Binding Capacity 144 ug/dL (250-450) L Percent Iron Saturation 29 % (15-50) Unsaturated Iron Binding 102 ug/dL (112-346) L Ferritin 32 NG/ML (8-388) Total Bilirubin 0.3 MG/DL (0.2-1.0) Aspartate Amino Transf (AST/SGOT) 111 U/L (15-37) H Alanine Aminotransferase (ALT/SGPT) 26 U/L (12-78) Alkaline Phosphatase 76 U/L (46-116) Troponin I 0.278 ng/mL (0.000-0.056) C-Reactive Protein, Quantitative 11.6 mg/dL (0.00-0.90) H Pro-B-Type Natriuretic Peptide 3750 pg/mL (0-125) H Total Protein 6.1 G/DL (6.4-8.2) L Albumin 2.6 G/DL (3.4-5.0) L Globulin 3.5 g/dL Albumin/Globulin Ratio 0.7 (1.0-2.7) L Triglycerides Level 130 MG/DL (30-150) Cholesterol Level 105 MG/DL (< 200) LDL Cholesterol 61 mg/dL (<100) HDL Cholesterol 30 MG/DL (40-60) L Cholesterol/HDL Ratio 3.5 (3.3-4.4) Vitamin B12 Level 841 PG/ML (193-986) Folate 16.5 NG/ML (8.6-58.9) Thyroid Stimulating Hormone (TSH) 0.926 uiU/mL (0.358-3.740) Cortisol AM Sample 18.9 UG/DL Random Vancomycin Level 13.4 ug/mL Arterial Blood pH 7.377 (7.350-7.450) Arterial Blood Partial Pressure CO2 23.4 mmHg (35.0-45.0) *L Arterial Blood Partial Pressure O2 189.0 mmHg (75.0-100.0) H Arterial Blood HCO3 13.4 mmol/L (22.0-26.0) *L Arterial Blood Oxygen Saturation 98.3 % (95-100) Arterial Blood Base Excess -10.6 (-2-2) *L Michele Test Positive Height (Feet): 5 Height (Inches): 4.00 Weight (Pounds): 107 Medications Current Medications Medications (Trade) Dose Ordered Sig/Liz Route PRN Reason Start Time Stop Time Status Last Admin Dose Admin Albuterol/ Ipratropium (Albuterol/ Ipratropium) 3 ml Q4H PRN HHN Shortness of Breath 10/02/18 08:15 10/07/18 08:14 Cefepime HCl 0.5 gm/Dextrose 55 ml @ 110 mls/hr Q24H IVPB 10/03/18 16:00 10/10/18 15:59 10/03/18 15:39 Chlorhexidine Gluconate (Guerita-Hex 2%) 1 applic DAILY@2000 TOPIC 10/02/18 20:00 11/01/18 19:59 10/02/18 20:00 Dextrose 1,000 ml @ 150 mls/hr Q6H40M IV 10/03/18 11:15 11/02/18 11:14 10/03/18 16:10 Heparin Sodium (Porcine) (Heparin 5000 units/ml) 5,000 units EVERY 12 HOURS SUBQ 10/02/18 09:00 11/01/18 08:59 10/03/18 08:26 Lidocaine HCl (Xylocaine 1% 30ml) 30 ml NOW PRN INJ Radiology Procedure 10/03/18 11:15 10/06/18 11:01 Nitroglycerin (Ntg) 0.4 mg Q5M PRN SL Prn Chest Pain 10/02/18 08:15 11/01/18 08:14 Norepinephrine Bitartrate 4 mg/ Dextrose 250 ml @ 0 mls/hr Q24H IV 10/02/18 08:45 11/01/18 08:44 Pantoprazole (Protonix) 40 mg DAILY IVP 10/02/18 09:00 11/01/18 08:59 10/03/18 08:25 Polyethylene Glycol (Miralax) 17 gm BEDTIME ORAL 10/02/18 21:00 11/01/18 20:59 10/02/18 21:17 Vancomycin HCl (Vanco rx to dose) 1 ea DAILY PRN MISC Per rx protocol 10/02/18 08:15 11/01/18 08:14 Assessment/Plan Assessment/Plan Abx: IV Vancomycin 10/01- Cefepime 10/01- Levaquin 10/01 x1 Assessment: Sepsis - likely 2ry to UTI- r/o bacteremia -u/a wbc 15-20, nit neg, leuk +3; ucx p -Bcx p -CXR: Unchanged appearance of prominent interstitial markings. This is likely related to chronic senescent changes although differential diagnosis may also include mild bronchitis or interstitial pneumonitis. Leukocytosis, improving Afebrile Acute respiratory failure, on VM Afib w/ RVR Troponinemia TITI, improving -Renal US: 1. 1.2 cm shadowing stone in the left lower renal pole. Mild left hydronephrosis. Nephrolithiasis -s/p recent renal stent 09/12 Afib s/p PPM dysphagia Nephrolithiasis CAD HTN endometrial tumor s/p hysterectomy 2006 sacral decubitus ulcer Plan: -Continue empiric IV Vancomycin and Cefepime #3 for now pending cutlures -f/u cx -Monitor CBC/CMP, temperatures -aspiration precautions Thank you for this consultation. Will continue to follow along with you. Discussed with Nuzhat Moctezuma M.D. 26, 2018 16:42
--- NOTE | 2018-10-03 18:52 | Internal Med Progress Note ---
Subjective Date of Service: Oct 03, 2018 Physician Name Guido Augustin Attending Physician Moses Gaona MD Current Medications Medications (Trade) Dose Ordered Sig/Liz Route PRN Reason Start Time Stop Time Status Last Admin Dose Admin Albuterol/ Ipratropium (Albuterol/ Ipratropium) 3 ml Q4H PRN HHN Shortness of Breath 10/02/18 08:15 10/07/18 08:14 Cefepime HCl 0.5 gm/Dextrose 55 ml @ 110 mls/hr Q24H IVPB 10/03/18 16:00 10/10/18 15:59 10/03/18 15:39 Chlorhexidine Gluconate (Guerita-Hex 2%) 1 applic DAILY@2000 TOPIC 10/02/18 20:00 11/01/18 19:59 10/02/18 20:00 Dextrose 1,000 ml @ 150 mls/hr Q6H40M IV 10/03/18 11:15 11/02/18 11:14 10/03/18 16:10 Heparin Sodium (Porcine) (Heparin 5000 units/ml) 5,000 units EVERY 12 HOURS SUBQ 10/02/18 09:00 11/01/18 08:59 10/03/18 08:26 Lidocaine HCl (Xylocaine 1% 30ml) 30 ml NOW PRN INJ Radiology Procedure 10/03/18 11:15 10/06/18 11:01 Nitroglycerin (Ntg) 0.4 mg Q5M PRN SL Prn Chest Pain 10/02/18 08:15 11/01/18 08:14 Norepinephrine Bitartrate 4 mg/ Dextrose 250 ml @ 0 mls/hr Q24H IV 10/02/18 08:45 11/01/18 08:44 Pantoprazole (Protonix) 40 mg DAILY IVP 10/02/18 09:00 11/01/18 08:59 10/03/18 08:25 Polyethylene Glycol (Miralax) 17 gm BEDTIME ORAL 10/02/18 21:00 11/01/18 20:59 10/02/18 21:17 Vancomycin HCl (Vanco rx to dose) 1 ea DAILY PRN MISC Per rx protocol 10/02/18 08:15 11/01/18 08:14 Allergies: Coded Allergies: No Known Allergies (Unverified , 01/02/13) Subjective 87 YO F admitted [facility] probable sepsis. Now respiratory failure and renal failure. Cover for Int Med-Dr Gaona. ICU Objective Last Vital Signs Date Time Temp Pulse Resp B/P (MAP) Pulse Ox O2 Delivery O2 Flow Rate FiO2 10/03/18 18:00 119 21 125/73 (90) 96 10/03/18 16:00 98.1 10/03/18 16:00 10.0 45 10/03/18 16:00 Venturi Mask General Appearance: moderate distress, lethargic, thin EENT: PERRL/EOMI, normal ENT inspection Neck: non-tender, normal alignment, supple, normal inspection Cardiovascular: regular rhythm, no gallop/murmur, no JVD, tachycardia Respiratory/Chest: chest wall non-tender, crackles/rales, rhonchi - bilaterally , expiratory wheezing Abdomen: normal bowel sounds, non tender, soft, no organomegaly, no mass Extremities: normal range of motion, non-tender Neurologic: 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 II-XII grossly normal, no motor/sensory deficits Skin: normal pigmentation, warm/dry Laboratory Tests Test 10/02/18 22:40 10/03/18 03:30 10/03/18 07:45 10/03/18 08:50 Urine Osmolality 366 mOsm/kg (429-449) L Urine Random Sodium 70 mmol/L (20-110) Urine Creatinine 85.8 MG/DL (30.0-125.0) White Blood Count 15.2 K/UL (4.8-10.8) H Red Blood Count 2.55 M/UL (4.20-5.40) L Hemoglobin 7.0 G/DL (12.0-16.0) L Hematocrit 21.8 % (37.0-47.0) L Mean Corpuscular Volume 85 FL (80-99) Mean Corpuscular Hemoglobin 27.4 PG (27.0-31.0) Mean Corpuscular Hemoglobin Concent 32.0 G/DL (32.0-36.0) Red Cell Distribution Width 16.7 % (11.6-14.8) H Platelet Count 146 K/UL (150-450) L Mean Platelet Volume 8.6 FL (6.5-10.1) Neutrophils (%) (Auto) % (45.0-75.0) Lymphocytes (%) (Auto) % (20.0-45.0) Monocytes (%) (Auto) % (1.0-10.0) Eosinophils (%) (Auto) % (0.0-3.0) Basophils (%) (Auto) % (0.0-2.0) Differential Total Cells Counted 100 Neutrophils % (Manual) 75 % (45-75) Lymphocytes % (Manual) 9 % (20-45) L Monocytes % (Manual) 3 % (1-10) Eosinophils % (Manual) 0 % (0-3) Basophils % (Manual) 0 % (0-2) Band Neutrophils 13 % (0-8) H Platelet Estimate Decreased L Platelet Morphology Normal Hypochromasia 1+ Anisocytosis 2+ Sodium Level 158 MMOL/L (136-145) #H Potassium Level 3.9 MMOL/L (3.5-5.1) Chloride Level 126 MMOL/L (98-107) H Carbon Dioxide Level 15 MMOL/L (21-32) L Anion Gap 17 mmol/L (5-15) H Blood Urea Nitrogen 119 mg/dL (7-18) H Creatinine 4.8 MG/DL (0.55-1.30) H Estimat Glomerular Filtration Rate mL/min (>60) Glucose Level 104 MG/DL (74-106) Lactic Acid Level 2.10 mmol/L (0.4-2.0) H 3.20 mmol/L (0.66-2.22) H Uric Acid 12.3 MG/DL (2.6-7.2) H Calcium Level 8.4 MG/DL (8.5-10.1) L Phosphorus Level 3.4 MG/DL (2.5-4.9) Magnesium Level 1.7 MG/DL (1.8-2.4) L Iron Level 42 ug/dL (50-175) L Total Iron Binding Capacity 144 ug/dL (250-450) L Percent Iron Saturation 29 % (15-50) Unsaturated Iron Binding 102 ug/dL (112-346) L Ferritin 32 NG/ML (8-388) Total Bilirubin 0.3 MG/DL (0.2-1.0) Aspartate Amino Transf (AST/SGOT) 111 U/L (15-37) H Alanine Aminotransferase (ALT/SGPT) 26 U/L (12-78) Alkaline Phosphatase 76 U/L (46-116) Troponin I 0.278 ng/mL (0.000-0.056) C-Reactive Protein, Quantitative 11.6 mg/dL (0.00-0.90) H Pro-B-Type Natriuretic Peptide 3750 pg/mL (0-125) H Total Protein 6.1 G/DL (6.4-8.2) L Albumin 2.6 G/DL (3.4-5.0) L Globulin 3.5 g/dL Albumin/Globulin Ratio 0.7 (1.0-2.7) L Triglycerides Level 130 MG/DL (30-150) Cholesterol Level 105 MG/DL (< 200) LDL Cholesterol 61 mg/dL (<100) HDL Cholesterol 30 MG/DL (40-60) L Cholesterol/HDL Ratio 3.5 (3.3-4.4) Vitamin B12 Level 841 PG/ML (193-986) Folate 16.5 NG/ML (8.6-58.9) Thyroid Stimulating Hormone (TSH) 0.926 uiU/mL (0.358-3.740) Cortisol AM Sample 18.9 UG/DL Random Vancomycin Level 13.4 ug/mL Arterial Blood pH 7.377 (7.350-7.450) Arterial Blood Partial Pressure CO2 23.4 mmHg (35.0-45.0) *L Arterial Blood Partial Pressure O2 189.0 mmHg (75.0-100.0) H Arterial Blood HCO3 13.4 mmol/L (22.0-26.0) *L Arterial Blood Oxygen Saturation 98.3 % (95-100) Arterial Blood Base Excess -10.6 (-2-2) *L Michele Test Positive Microbiology Date/Time Source Procedure Growth Status 10/01/18 23:30 Blood Blood Culture - Preliminary NO GROWTH AFTER 24 HOURS Resulted 10/01/18 23:20 Blood Blood Culture - Preliminary NO GROWTH AFTER 24 HOURS Resulted 10/01/18 22:40 Urine,Clean Catch Urine Culture - Preliminary Resulted Intake and Output 10/02/18 10/03/18 19:00 07:00 Intake Total 810 ml 1100 ml Output Total 90 ml 335 ml Balance 720 ml 765 ml Intake IV Total 810 ml 1100 ml Output Urine Total 90 ml 335 ml # Bowel Movements 4 Assessment/Plan Problem List: (1) Respiratory failure Assessment & Plan: tolerating venturi mask See pulmonary note. (2) Nephrolithiasis Assessment & Plan: S/P stent. See nephrology note. (3) UTI (urinary tract infection) Assessment & Plan: Continue vanco and cefepime per ID. Await culture results. (4) Sepsis Assessment & Plan: Continue vanco and cefepime per ID. Await cultures. (5) Hypernatremia Assessment & Plan: See nephrology note. Continue D5W (6) Pacemaker Assessment & Plan: see cardiology note. (7) Hyperkalemia (8) Renal failure (9) Atrial fibrillation with rapid ventricular response Assessment & Plan: See cardiology note. Status: not improved Guido Augustin MD Oct 03, 2018 18:52
[2018-10-03] MEDS: Miralax 17gm pkt ORAL SCH (21:00)
[2018-10-03] MEDS: Dyna-Hex 2% Top Sol 2oz TOPIC SCH (21:10)
--- NOTE | 2018-10-03 23:13 | Consultation ---
History of Present Illness General Chief Complaint: Altered Level of Consciousness Referring physician: dr Gaona Reason for Consultation: sepsis. resp failure Present Illness HPI 87-year-old lady with history of dementia atrial fibrillation and history of Biotronik pacemaker, who just last year underwent pacemaker generator change in the Biotronik device at the [facility]. the pt has waxing and waning of consciousness and is agitated. the pt has poor memory and is unable to provide hx. Allergies: Coded Allergies: No Known Allergies (Unverified , 01/02/13) Medication History Scheduled No Known Medications* (NKM - No Known Medications*), 0 ., (Reported) Patient History Limited by: medical condition History Provided By: Patient, Medical Record Healthcare decision maker Resuscitation status Full Code Advanced Directive on File Past Medical/Surgical History Past Medical/Surgical History: (1) Renal failure (2) UTI (urinary tract infection) (3) Hyperkalemia (4) NSTEMI (non-ST elevated myocardial infarction) (5) Septic shock (6) ATN (acute tubular necrosis) (7) Severe protein-calorie malnutrition (8) Acute encephalopathy (9) Sepsis (10) DVT (deep venous thrombosis) (11) Nephrolithiasis (12) Respiratory failure (13) Hypernatremia (14) Pacemaker (15) Atrial fibrillation with rapid ventricular response Review of Systems Psychiatric: Reports: prior hx, anxiety, hallucinations Physical Exam General Appearance: alert, lethargic, confused, agitated Last 24 Hour Vital Signs Date Time Temp Pulse Resp B/P (MAP) Pulse Ox O2 Delivery O2 Flow Rate FiO2 10/03/18 20:00 Venturi Mask 10.0 10/03/18 20:00 125 10/03/18 20:00 97.2 125 26 109/73 (85) 98 10/03/18 19:30 125 24 Venturi Mask 10.0 45 10/03/18 19:30 Venturi Mask 10.0 45 10/03/18 19:30 92 Venturi Mask 10.0 45 10/03/18 19:00 98 25 128/76 (93) 96 10/03/18 18:00 119 21 125/73 (90) 96 10/03/18 17:00 104 19 125/73 (90) 95 10/03/18 16:00 98.1 114 21 106/79 (88) 100 10/03/18 16:00 130 10/03/18 16:00 10.0 45 10/03/18 16:00 Venturi Mask 10.0 10/03/18 15:00 96 19 128/57 (80) 95 10/03/18 14:00 90 21 112/64 (80) 95 10/03/18 13:00 89 20 139/64 (89) 95 10/03/18 12:00 84 10/03/18 12:00 10.0 45 10/03/18 12:00 Venturi Mask 10.0 10/03/18 12:00 98.8 84 21 119/46 (70) 100 10/03/18 11:00 86 20 128/52 (77) 95 10/03/18 10:00 91 22 108/56 (73) 96 10/03/18 09:00 89 22 134/54 (80) 96 10/03/18 08:24 122/57 10/03/18 08:00 10.0 45 10/03/18 08:00 94 10/03/18 08:00 97.9 96 23 122/57 (78) 94 10/03/18 08:00 Venturi Mask 10.0 10/03/18 07:00 85 21 119/60 (79) 100 10/03/18 06:45 Venturi Mask 10.0 45 10/03/18 06:45 103 21 Venturi Mask 10.0 45 10/03/18 06:45 99 Venturi Mask 10.0 45 10/03/18 06:00 91 19 127/55 (79) 100 10/03/18 05:00 89 20 128/91 (103) 100 10/03/18 04:00 Venturi Mask 10.0 10/03/18 04:00 99.2 95 21 132/46 (74) 100 10/03/18 04:00 95 10/03/18 04:00 10.0 45 10/03/18 03:00 90 20 136/55 (82) 100 10/03/18 02:00 88 21 115/51 (72) 100 10/03/18 01:00 85 18 97/52 (67) 100 10/03/18 00:00 85 10/03/18 00:00 97.5 83 17 121/59 (79) 100 10/03/18 00:00 Venturi Mask 10.0 10/03/18 00:00 15.0 50 Intake and Output 10/02/18 10/03/18 19:00 07:00 Intake Total 810 ml 1100 ml Output Total 90 ml 335 ml Balance 720 ml 765 ml Intake IV Total 810 ml 1100 ml Output Urine Total 90 ml 335 ml # Bowel Movements 4 Laboratory Tests Test 10/03/18 03:30 10/03/18 07:45 10/03/18 08:50 White Blood Count 15.2 K/UL (4.8-10.8) H Red Blood Count 2.55 M/UL (4.20-5.40) L Hemoglobin 7.0 G/DL (12.0-16.0) L Hematocrit 21.8 % (37.0-47.0) L Mean Corpuscular Volume 85 FL (80-99) Mean Corpuscular Hemoglobin 27.4 PG (27.0-31.0) Mean Corpuscular Hemoglobin Concent 32.0 G/DL (32.0-36.0) Red Cell Distribution Width 16.7 % (11.6-14.8) H Platelet Count 146 K/UL (150-450) L Mean Platelet Volume 8.6 FL (6.5-10.1) Neutrophils (%) (Auto) % (45.0-75.0) Lymphocytes (%) (Auto) % (20.0-45.0) Monocytes (%) (Auto) % (1.0-10.0) Eosinophils (%) (Auto) % (0.0-3.0) Basophils (%) (Auto) % (0.0-2.0) Differential Total Cells Counted 100 Neutrophils % (Manual) 75 % (45-75) Lymphocytes % (Manual) 9 % (20-45) L Monocytes % (Manual) 3 % (1-10) Eosinophils % (Manual) 0 % (0-3) Basophils % (Manual) 0 % (0-2) Band Neutrophils 13 % (0-8) H Platelet Estimate Decreased L Platelet Morphology Normal Hypochromasia 1+ Anisocytosis 2+ Sodium Level 158 MMOL/L (136-145) #H Potassium Level 3.9 MMOL/L (3.5-5.1) Chloride Level 126 MMOL/L (98-107) H Carbon Dioxide Level 15 MMOL/L (21-32) L Anion Gap 17 mmol/L (5-15) H Blood Urea Nitrogen 119 mg/dL (7-18) H Creatinine 4.8 MG/DL (0.55-1.30) H Estimat Glomerular Filtration Rate mL/min (>60) Glucose Level 104 MG/DL (74-106) Lactic Acid Level 2.10 mmol/L (0.4-2.0) H 3.20 mmol/L (0.66-2.22) H Uric Acid 12.3 MG/DL (2.6-7.2) H Calcium Level 8.4 MG/DL (8.5-10.1) L Phosphorus Level 3.4 MG/DL (2.5-4.9) Magnesium Level 1.7 MG/DL (1.8-2.4) L Iron Level 42 ug/dL (50-175) L Total Iron Binding Capacity 144 ug/dL (250-450) L Percent Iron Saturation 29 % (15-50) Unsaturated Iron Binding 102 ug/dL (112-346) L Ferritin 32 NG/ML (8-388) Total Bilirubin 0.3 MG/DL (0.2-1.0) Aspartate Amino Transf (AST/SGOT) 111 U/L (15-37) H Alanine Aminotransferase (ALT/SGPT) 26 U/L (12-78) Alkaline Phosphatase 76 U/L (46-116) Troponin I 0.278 ng/mL (0.000-0.056) C-Reactive Protein, Quantitative 11.6 mg/dL (0.00-0.90) H Pro-B-Type Natriuretic Peptide 3750 pg/mL (0-125) H Total Protein 6.1 G/DL (6.4-8.2) L Albumin 2.6 G/DL (3.4-5.0) L Globulin 3.5 g/dL Albumin/Globulin Ratio 0.7 (1.0-2.7) L Triglycerides Level 130 MG/DL (30-150) Cholesterol Level 105 MG/DL (< 200) LDL Cholesterol 61 mg/dL (<100) HDL Cholesterol 30 MG/DL (40-60) L Cholesterol/HDL Ratio 3.5 (3.3-4.4) Vitamin B12 Level 841 PG/ML (193-986) Folate 16.5 NG/ML (8.6-58.9) Thyroid Stimulating Hormone (TSH) 0.926 uiU/mL (0.358-3.740) Cortisol AM Sample 18.9 UG/DL Random Vancomycin Level 13.4 ug/mL Arterial Blood pH 7.377 (7.350-7.450) Arterial Blood Partial Pressure CO2 23.4 mmHg (35.0-45.0) *L Arterial Blood Partial Pressure O2 189.0 mmHg (75.0-100.0) H Arterial Blood HCO3 13.4 mmol/L (22.0-26.0) *L Arterial Blood Oxygen Saturation 98.3 % (95-100) Arterial Blood Base Excess -10.6 (-2-2) *L Michele Test Positive Height (Feet): 5 Height (Inches): 4.00 Weight (Pounds): 107 Medications Current Medications Medications (Trade) Dose Ordered Sig/Liz Route PRN Reason Start Time Stop Time Status Last Admin Dose Admin Albuterol/ Ipratropium (Albuterol/ Ipratropium) 3 ml Q4H PRN HHN Shortness of Breath 10/02/18 08:15 10/07/18 08:14 Cefepime HCl 0.5 gm/Dextrose 55 ml @ 110 mls/hr Q24H IVPB 10/03/18 16:00 10/10/18 15:59 10/03/18 15:39 Chlorhexidine Gluconate (Guerita-Hex 2%) 1 applic DAILY@2000 TOPIC 10/02/18 20:00 11/01/18 19:59 10/03/18 21:10 Dextrose 1,000 ml @ 150 mls/hr Q6H40M IV 10/03/18 11:15 11/02/18 11:14 10/03/18 23:09 Heparin Sodium (Porcine) (Heparin 5000 units/ml) 5,000 units EVERY 12 HOURS SUBQ 10/02/18 09:00 11/01/18 08:59 10/03/18 08:26 Lidocaine HCl (Xylocaine 1% 30ml) 30 ml NOW PRN INJ Radiology Procedure 10/03/18 11:15 10/06/18 11:01 Nitroglycerin (Ntg) 0.4 mg Q5M PRN SL Prn Chest Pain 10/02/18 08:15 11/01/18 08:14 Norepinephrine Bitartrate 4 mg/ Dextrose 250 ml @ 0 mls/hr Q24H IV 10/02/18 08:45 11/01/18 08:44 Pantoprazole (Protonix) 40 mg DAILY IVP 10/02/18 09:00 11/01/18 08:59 10/03/18 08:25 Polyethylene Glycol (Miralax) 17 gm BEDTIME ORAL 10/02/18 21:00 11/01/18 20:59 10/02/18 21:17 Vancomycin HCl (Vanco rx to dose) 1 ea DAILY PRN MISC Per rx protocol 10/02/18 08:15 11/01/18 08:14 Assessment/Plan Problem List: (1) encephlopathy due to toxin Assessment/Plan zyprexa 2.5 mg qhs zyprexa 2.5 mg q 6hr prn the pt lack capacity to make decisions. Naida Gallardo MD Oct 03, 2018 23:13
[2018-10-04] VITALS (24 sets, daily range): BP systolic 85–152; BP diastolic 40–93
[2018-10-04] MEDS ORDERED: Digoxin 0.5mg/2ml Inj IVP SCH ×2 (01:15→03:30)
[2018-10-04 05:37] LABS: HEMATOCRIT 29.9 % (37.0-47.0); HEMOGLOBIN 9.9 G/DL (12.0-16.0); MEAN CORPUSCULAR VOLUME 82 FL (80-99); PLATELET COUNT 148 K/UL (150-450); RED BLOOD COUNT 3.64 M/UL (4.20-5.40); RED CELL DISTRIBUTION WIDTH 15.3 % (11.6-14.8); WHITE BLOOD COUNT 16.7 K/UL (4.8-10.8)
[2018-10-04 05:53] LABS: ALANINE AMINOTRANSFERASE 24 U/L (12-78); ALBUMIN 2.1 G/DL (3.4-5.0); ALBUMIN/GLOBULIN RATIO 0.6 (1.0-2.7); ALKALINE PHOSPHATASE 68 U/L (46-116); ANION GAP 16 mmol/L (5-15); ASPARTATE AMINO TRANSFERASE 89 U/L (15-37); BILIRUBIN,TOTAL 0.4 MG/DL (0.2-1.0); BLOOD UREA NITROGEN 91 mg/dL (7-18); CALCIUM 8.1 MG/DL (8.5-10.1); CARBON DIOXIDE 17 MMOL/L (21-32); CHLORIDE 114 MMOL/L (98-107); CREATININE 4.3 MG/DL (0.55-1.30); POTASSIUM 3.2 MMOL/L (3.5-5.1); SODIUM 147 MMOL/L (136-145)
[2018-10-04 06:08] LABS: PHOSPHORUS 3.5 MG/DL (2.5-4.9)
[2018-10-04] MEDS: Heparin 5000 units/ml inj SUBQ SCH (09:00)
[2018-10-04] MEDS: Pantoprazole Inj IVP SCH (09:11)
--- NOTE | 2018-10-04 10:35 | Nephrology Progress Note ---
Assessment/Plan Problem List: (1) ATN (acute tubular necrosis) (2) Septic shock (3) NSTEMI (non-ST elevated myocardial infarction) (4) Hyperkalemia Assessment Acute renal failure / Hyperkalemia Sepsis / Shock / UTI NSTEMI (non-ST elevated myocardial infarction) Plan transfused mag and K supplement Fluid challenge D5W Antibiotics Avoid Nephrotoxics Urine studies pulmonary support poor prognosis Subjective ROS Limited/Unobtainable: Yes Objective Objective Last 24 Hour Vital Signs Date Time Temp Pulse Resp B/P (MAP) Pulse Ox O2 Delivery O2 Flow Rate FiO2 10/04/18 08:45 109/63 10/04/18 08:00 97.7 102 20 109/63 (78) 100 10/04/18 07:00 110 19 105/52 (69) 100 10/04/18 06:00 117 19 108/50 (69) 100 10/04/18 05:00 130 22 118/88 (98) 100 10/04/18 04:00 147 10/04/18 04:00 Venturi Mask 10.0 10/04/18 04:00 97.5 150 21 112/65 (81) 100 10/04/18 03:52 134 10/04/18 03:00 147 23 89/43 (58) 100 10/04/18 02:00 147 23 103/51 (68) 100 10/04/18 01:41 139 10/04/18 01:00 130 23 86/49 (61) 96 10/04/18 00:00 Venturi Mask 10.0 10/04/18 00:00 161 10/04/18 00:00 98.7 145 26 85/61 (69) 98 10/03/18 23:00 148 22 107/60 (76) 98 10/03/18 22:00 127 22 118/94 (102) 96 10/03/18 21:00 128 21 115/83 (94) 96 10/03/18 20:00 Venturi Mask 10.0 10/03/18 20:00 125 10/03/18 20:00 97.2 125 26 109/73 (85) 98 10/03/18 19:30 125 24 Venturi Mask 10.0 45 10/03/18 19:30 Venturi Mask 10.0 45 10/03/18 19:30 92 Venturi Mask 10.0 45 10/03/18 19:00 98 25 128/76 (93) 96 10/03/18 18:00 119 21 125/73 (90) 96 10/03/18 17:00 104 19 125/73 (90) 95 10/03/18 16:00 98.1 114 21 106/79 (88) 100 10/03/18 16:00 130 10/03/18 16:00 10.0 45 10/03/18 16:00 Venturi Mask 10.0 10/03/18 15:00 96 19 128/57 (80) 95 10/03/18 14:00 90 21 112/64 (80) 95 10/03/18 13:00 89 20 139/64 (89) 95 10/03/18 12:00 84 10/03/18 12:00 10.0 45 10/03/18 12:00 Venturi Mask 10.0 10/03/18 12:00 98.8 84 21 119/46 (70) 100 10/03/18 11:00 86 20 128/52 (77) 95 Intake and Output 10/03/18 10/04/18 19:00 07:00 Intake Total 1845.562 ml 1647 ml Output Total 705 ml 1490 ml Balance 1140.562 ml 157 ml Intake IV Total 1595.562 ml 1647 ml Blood Product 250 ml Output Urine Total 705 ml 1490 ml # Bowel Movements 2 Laboratory Tests 10/04/18 04:45: White Blood Count 16.7H, Red Blood Count 3.64L, Hemoglobin 9.9#L, Hematocrit 29.9#L, Mean Corpuscular Volume 82, Mean Corpuscular Hemoglobin 27.2, Mean Corpuscular Hemoglobin Concent 33.1, Red Cell Distribution Width 15.3H, Platelet Count 148L, Mean Platelet Volume 8.1, Neutrophils (%) (Auto) , Lymphocytes (%) (Auto) , Monocytes (%) (Auto) , Eosinophils (%) (Auto) , Basophils (%) (Auto) , Differential Total Cells Counted 100, Neutrophils % ( Manual) 83H, Lymphocytes % (Manual) 9L, Monocytes % (Manual) 5, Eosinophils % ( Manual) 1, Basophils % (Manual) 0, Band Neutrophils 2, Nucleated Red Blood Cells 5, Platelet Estimate DecreasedL, Platelet Morphology Normal, Hypochromasia 2+, Anisocytosis 1+, Spherocytes 1+, Sodium Level 147H, Potassium Level 3.2L, Chloride Level 114H, Carbon Dioxide Level 17L, Anion Gap 16H, Blood Urea Nitrogen 91H, Creatinine 4.3H, Estimat Glomerular Filtration Rate , Glucose Level 92, Uric Acid 10.7H, Calcium Level 8.1L, Phosphorus Level 3.5, Magnesium Level 1.2L, Total Bilirubin 0.4, Aspartate Amino Transf (AST/SGOT) 89H , Alanine Aminotransferase (ALT/SGPT) 24, Alkaline Phosphatase 68, Troponin I 0.227H, Pro-B-Type Natriuretic Peptide 9047H, Total Protein 5.6L, Albumin 2.1L, Globulin 3.5, Albumin/Globulin Ratio 0.6L Height (Feet): 5 Height (Inches): 4.00 Weight (Pounds): 79 General Appearance: mild distress Cardiovascular: tachycardia Respiratory/Chest: decreased breath sounds Abdomen: distended Doc Shaver MD Oct 04, 2018 10:35
[2018-10-04] MEDS ORDERED: OLANZapine 2.5mg tab ORAL PRN (11:30)
--- NOTE | 2018-10-04 11:40 | Pulmonolgy Critical Care Note ---
Critical Care - Asmt/Plan Problems: (1) Septic shock (2) ATN (acute tubular necrosis) (3) Acute encephalopathy (4) DVT (deep venous thrombosis) (5) NSTEMI (non-ST elevated myocardial infarction) (6) Hyperkalemia (7) Severe protein-calorie malnutrition Respiratory: monitor respiratory rate, adjust FIO2, CXR Cardiac: continue to monitor HR/BP Renal: F/U I&O, keep IV fluid Infectious Disease: check cultures, continue antibiotics Gastrointestinal: continue feedings/current rate Endocrine: monitor blood sugar, check HgA1C Neurologic: PRN Ativan, keep patient comfortable Affect: PRN ativan Notes Reviewed: swamper, cardio, renal Discussed with: nurses, consultants, correctional case records supervisorpayroll manager - Objective Last 24 Hour Vital Signs Date Time Temp Pulse Resp B/P (MAP) Pulse Ox O2 Delivery O2 Flow Rate FiO2 10/04/18 11:18 121 25 Venturi Mask 10.0 45 10/04/18 11:18 Venturi Mask 10.0 45 10/04/18 11:18 93 Venturi Mask 10.0 45 10/04/18 10:00 103 16 114/93 (100) 100 10/04/18 09:00 108 17 108/53 (71) 100 10/04/18 08:45 109/63 10/04/18 08:00 Venturi Mask 10.0 10/04/18 08:00 97.7 102 20 109/63 (78) 100 10/04/18 08:00 123 10/04/18 07:00 110 19 105/52 (69) 100 10/04/18 06:00 117 19 108/50 (69) 100 10/04/18 05:00 130 22 118/88 (98) 100 10/04/18 04:00 147 10/04/18 04:00 Venturi Mask 10.0 10/04/18 04:00 97.5 150 21 112/65 (81) 100 10/04/18 03:52 134 10/04/18 03:00 147 23 89/43 (58) 100 10/04/18 02:00 147 23 103/51 (68) 100 10/04/18 01:41 139 10/04/18 01:00 130 23 86/49 (61) 96 10/04/18 00:00 Venturi Mask 10.0 10/04/18 00:00 161 11/27/18 00:00 98.7 145 26 85/61 (69) 98 10/03/18 23:00 148 22 107/60 (76) 98 10/03/18 22:00 127 22 118/94 (102) 96 10/03/18 21:00 128 21 115/83 (94) 96 10/03/18 20:00 Venturi Mask 10.0 10/03/18 20:00 125 10/03/18 20:00 97.2 125 26 109/73 (85) 98 10/03/18 19:30 125 24 Venturi Mask 10.0 45 10/03/18 19:30 Venturi Mask 10.0 45 10/03/18 19:30 92 Venturi Mask 10.0 45 10/03/18 19:00 98 25 128/76 (93) 96 10/03/18 18:00 119 21 125/73 (90) 96 10/03/18 17:00 104 19 125/73 (90) 95 10/03/18 16:00 98.1 114 21 106/79 (88) 100 10/03/18 16:00 130 10/03/18 16:00 10.0 45 10/03/18 16:00 Venturi Mask 10.0 10/03/18 15:00 96 19 128/57 (80) 95 10/03/18 14:00 90 21 112/64 (80) 95 10/03/18 13:00 89 20 139/64 (89) 95 10/03/18 12:00 84 10/03/18 12:00 10.0 45 10/03/18 12:00 Venturi Mask 10.0 10/03/18 12:00 98.8 84 21 119/46 (70) 100 Status: sedated Condition: critical HEENT: atraumatic, normocephalic Neck: full ROM Lungs: rales, rhonchi Heart: HR/BP stable Abdomen: soft, non-tender Extremities: edema Micro: Microbiology Date/Time Source Procedure Growth Status 10/02/18 16:20 Blood Blood Culture - Preliminary NO GROWTH AFTER 24 HOURS Resulted 10/02/18 16:10 Blood Blood Culture - Preliminary NO GROWTH AFTER 24 HOURS Resulted 10/01/18 23:30 Blood Blood Culture - Preliminary NO GROWTH AFTER 48 HOURS Resulted 10/01/18 23:20 Blood Blood Culture - Preliminary NO GROWTH AFTER 48 HOURS Resulted 10/04/18 00:10 Sputum Induced Gram Stain - Final Resulted 10/04/18 00:10 Sputum Induced Sputum Culture Pending Resulted 10/01/18 22:40 Urine,Clean Catch Urine Culture - Preliminary Streptococcus Species Resulted Accucheck: 159 Critical Care - Subjective ROS Limited/Unobtainable: Yes Condition: critical FI02: 45 Sputum Amount: None Fluids: d5w at 150 cc/hour I&O: Intake and Output 10/03/18 10/04/18 19:00 07:00 Intake Total 1845.562 ml 1647 ml Output Total 705 ml 1490 ml Balance 1140.562 ml 157 ml Intake IV Total 1595.562 ml 1647 ml Blood Product 250 ml Output Urine Total 705 ml 1490 ml # Bowel Movements 2 Labs: Laboratory Tests Test 10/04/18 04:45 White Blood Count 16.7 K/UL (4.8-10.8) H Red Blood Count 3.64 M/UL (4.20-5.40) L Hemoglobin 9.9 G/DL (12.0-16.0) #L Hematocrit 29.9 % (37.0-47.0) #L Mean Corpuscular Volume 82 FL (80-99) Mean Corpuscular Hemoglobin 27.2 PG (27.0-31.0) Mean Corpuscular Hemoglobin Concent 33.1 G/DL (32.0-36.0) Red Cell Distribution Width 15.3 % (11.6-14.8) H Platelet Count 148 K/UL (150-450) L Mean Platelet Volume 8.1 FL (6.5-10.1) Neutrophils (%) (Auto) % (45.0-75.0) Lymphocytes (%) (Auto) % (20.0-45.0) Monocytes (%) (Auto) % (1.0-10.0) Eosinophils (%) (Auto) % (0.0-3.0) Basophils (%) (Auto) % (0.0-2.0) Differential Total Cells Counted 100 Neutrophils % (Manual) 83 % (45-75) H Lymphocytes % (Manual) 9 % (20-45) L Monocytes % (Manual) 5 % (1-10) Eosinophils % (Manual) 1 % (0-3) Basophils % (Manual) 0 % (0-2) Band Neutrophils 2 % (0-8) Nucleated Red Blood Cells 5 /100 WBC Platelet Estimate Decreased L Platelet Morphology Normal Hypochromasia 2+ Anisocytosis 1+ Spherocytes 1+ Sodium Level 147 MMOL/L (136-145) H Potassium Level 3.2 MMOL/L (3.5-5.1) L Chloride Level 114 MMOL/L (98-107) H Carbon Dioxide Level 17 MMOL/L (21-32) L Anion Gap 16 mmol/L (5-15) H Blood Urea Nitrogen 91 mg/dL (7-18) H Creatinine 4.3 MG/DL (0.55-1.30) H Estimat Glomerular Filtration Rate mL/min (>60) Glucose Level 92 MG/DL (74-106) Uric Acid 10.7 MG/DL (2.6-7.2) H Calcium Level 8.1 MG/DL (8.5-10.1) L Phosphorus Level 3.5 MG/DL (2.5-4.9) Magnesium Level 1.2 MG/DL (1.8-2.4) L Total Bilirubin 0.4 MG/DL (0.2-1.0) Aspartate Amino Transf (AST/SGOT) 89 U/L (15-37) H Alanine Aminotransferase (ALT/SGPT) 24 U/L (12-78) Alkaline Phosphatase 68 U/L (46-116) Troponin I 0.227 ng/mL (0.000-0.056) Pro-B-Type Natriuretic Peptide 9047 pg/mL (0-125) H Total Protein 5.6 G/DL (6.4-8.2) L Albumin 2.1 G/DL (3.4-5.0) L Globulin 3.5 g/dL Albumin/Globulin Ratio 0.6 (1.0-2.7) L Camila Aquino MD Oct 04, 2018 11:40
--- NOTE | 2018-10-04 11:46 | Infectious Diseases Prog Note ---
Assessment/Plan Assessment/Plan Assessment/Plan Abx: IV Vancomycin 10/01- Cefepime 10/01- Levaquin 10/01 x1 Assessment: Sepsis - likely 2ry to UTI- r/o bacteremia -u/a wbc 15-20, nit neg, leuk +3; ucx >100K strep sp - r/o VRE -Bcx NTD -CXR: Unchanged appearance of prominent interstitial markings. This is likely related to chronic senescent changes although differential diagnosis may also include mild bronchitis or interstitial pneumonitis. -Sp cx Leukocytosis, overall improved Afebrile Acute respiratory failure, on VM Afib w/ RVR Troponinemia TITI, improving -Renal US: 1. 1.2 cm shadowing stone in the left lower renal pole. Mild left hydronephrosis. Nephrolithiasis -s/p recent renal stent 09/12 Afib s/p PPM dysphagia Nephrolithiasis CAD HTN endometrial tumor s/p hysterectomy 2006 sacral decubitus ulcer Plan: -Switch empiric IV Vancomycin #4 to Daptomycin for VRE coverage and continue empiric Cefepime #4 for now pending cutlures -f/u cx -Monitor CBC/CMP, temperatures -aspiration precautions Thank you for this consultation. Will continue to follow along with you. Discussed with RN. Subjective Allergies: Coded Allergies: No Known Allergies (Unverified , 01/02/13) Subjective afebrile wbc 16 bcx NTD Objective Vital Signs Last 24 Hour Vital Signs Date Time Temp Pulse Resp B/P (MAP) Pulse Ox O2 Delivery O2 Flow Rate FiO2 10/04/18 11:18 121 25 Venturi Mask 10.0 45 10/04/18 11:18 Venturi Mask 10.0 45 10/04/18 11:18 93 Venturi Mask 10.0 45 10/04/18 10:00 103 16 114/93 (100) 100 10/04/18 09:00 108 17 108/53 (71) 100 10/04/18 08:45 109/63 10/04/18 08:00 Venturi Mask 10.0 10/04/18 08:00 97.7 102 20 109/63 (78) 100 10/04/18 08:00 123 10/04/18 07:00 110 19 105/52 (69) 100 10/04/18 06:00 117 19 108/50 (69) 100 10/04/18 05:00 130 22 118/88 (98) 100 10/04/18 04:00 147 10/04/18 04:00 Venturi Mask 10.0 10/04/18 04:00 97.5 150 21 112/65 (81) 100 10/04/18 03:52 134 10/04/18 03:00 147 23 89/43 (58) 100 10/04/18 02:00 147 23 103/51 (68) 100 10/04/18 01:41 139 10/04/18 01:00 130 23 86/49 (61) 96 10/04/18 00:00 Venturi Mask 10.0 10/04/18 00:00 161 10/04/18 00:00 98.7 145 26 85/61 (69) 98 10/03/18 23:00 148 22 107/60 (76) 98 10/03/18 22:00 127 22 118/94 (102) 96 10/03/18 21:00 128 21 115/83 (94) 96 10/03/18 20:00 Venturi Mask 10.0 10/03/18 20:00 125 10/03/18 20:00 97.2 125 26 109/73 (85) 98 10/03/18 19:30 125 24 Venturi Mask 10.0 45 10/03/18 19:30 Venturi Mask 10.0 45 10/03/18 19:30 92 Venturi Mask 10.0 45 10/03/18 19:00 98 25 128/76 (93) 96 10/03/18 18:00 119 21 125/73 (90) 96 10/03/18 17:00 104 19 125/73 (90) 95 10/03/18 16:00 98.1 114 21 106/79 (88) 100 10/03/18 16:00 130 10/03/18 16:00 10.0 45 10/03/18 16:00 Venturi Mask 10.0 10/03/18 15:00 96 19 128/57 (80) 95 10/03/18 14:00 90 21 112/64 (80) 95 10/03/18 13:00 89 20 139/64 (89) 95 10/03/18 12:00 84 10/03/18 12:00 10.0 45 10/03/18 12:00 Venturi Mask 10.0 10/03/18 12:00 98.8 84 21 119/46 (70) 100 Height (Feet): 5 Height (Inches): 4.00 Weight (Pounds): 79 Objective GENERAL: The patient well-developed, well-nourished female, thin-appearing, who is more or less lethargic. HEENT: Eyes, pupils equal and responsive to light and accommodation. Extraocular movements are intact. NECK: Supple without lymphadenopathy. CHEST: Decreased breath sounds at bilateral bases. Otherwise, clear to auscultation without wheezes or rales. CARDIOVASCULAR: Tachycardic, S1, S2 normal without murmurs, rubs, or gallops. ABDOMEN: Soft, nontender, and nondistended. Positive bowel sounds. No evidence of hepatosplenomegaly. Currently, no rebound or guarding noted. EXTREMITIES: Negative for clubbing, cyanosis, or edema. Microbiology Date/Time Source Procedure Growth Status 10/02/18 16:20 Blood Blood Culture - Preliminary NO GROWTH AFTER 24 HOURS Resulted 10/02/18 16:10 Blood Blood Culture - Preliminary NO GROWTH AFTER 24 HOURS Resulted 10/01/18 23:30 Blood Blood Culture - Preliminary NO GROWTH AFTER 48 HOURS Resulted 10/01/18 23:20 Blood Blood Culture - Preliminary NO GROWTH AFTER 48 HOURS Resulted 10/04/18 00:10 Sputum Induced Gram Stain - Final Resulted 10/04/18 00:10 Sputum Induced Sputum Culture Pending Resulted 10/01/18 22:40 Urine,Clean Catch Urine Culture - Preliminary Streptococcus Species Resulted Laboratory Tests Test 10/04/18 04:45 White Blood Count 16.7 K/UL (4.8-10.8) H Red Blood Count 3.64 M/UL (4.20-5.40) L Hemoglobin 9.9 G/DL (12.0-16.0) #L Hematocrit 29.9 % (37.0-47.0) #L Mean Corpuscular Volume 82 FL (80-99) Mean Corpuscular Hemoglobin 27.2 PG (27.0-31.0) Mean Corpuscular Hemoglobin Concent 33.1 G/DL (32.0-36.0) Red Cell Distribution Width 15.3 % (11.6-14.8) H Platelet Count 148 K/UL (150-450) L Mean Platelet Volume 8.1 FL (6.5-10.1) Neutrophils (%) (Auto) % (45.0-75.0) Lymphocytes (%) (Auto) % (20.0-45.0) Monocytes (%) (Auto) % (1.0-10.0) Eosinophils (%) (Auto) % (0.0-3.0) Basophils (%) (Auto) % (0.0-2.0) Differential Total Cells Counted 100 Neutrophils % (Manual) 83 % (45-75) H Lymphocytes % (Manual) 9 % (20-45) L Monocytes % (Manual) 5 % (1-10) Eosinophils % (Manual) 1 % (0-3) Basophils % (Manual) 0 % (0-2) Band Neutrophils 2 % (0-8) Nucleated Red Blood Cells 5 /100 WBC Platelet Estimate Decreased L Platelet Morphology Normal Hypochromasia 2+ Anisocytosis 1+ Spherocytes 1+ Sodium Level 147 MMOL/L (136-145) H Potassium Level 3.2 MMOL/L (3.5-5.1) L Chloride Level 114 MMOL/L (98-107) H Carbon Dioxide Level 17 MMOL/L (21-32) L Anion Gap 16 mmol/L (5-15) H Blood Urea Nitrogen 91 mg/dL (7-18) H Creatinine 4.3 MG/DL (0.55-1.30) H Estimat Glomerular Filtration Rate mL/min (>60) Glucose Level 92 MG/DL (74-106) Uric Acid 10.7 MG/DL (2.6-7.2) H Calcium Level 8.1 MG/DL (8.5-10.1) L Phosphorus Level 3.5 MG/DL (2.5-4.9) Magnesium Level 1.2 MG/DL (1.8-2.4) L Total Bilirubin 0.4 MG/DL (0.2-1.0) Aspartate Amino Transf (AST/SGOT) 89 U/L (15-37) H Alanine Aminotransferase (ALT/SGPT) 24 U/L (12-78) Alkaline Phosphatase 68 U/L (46-116) Troponin I 0.227 ng/mL (0.000-0.056) Pro-B-Type Natriuretic Peptide 9047 pg/mL (0-125) H Total Protein 5.6 G/DL (6.4-8.2) L Albumin 2.1 G/DL (3.4-5.0) L Globulin 3.5 g/dL Albumin/Globulin Ratio 0.6 (1.0-2.7) L Current Medications Medications (Trade) Dose Ordered Sig/Liz Route PRN Reason Start Time Stop Time Status Last Admin Dose Admin Albuterol/ Ipratropium (Albuterol/ Ipratropium) 3 ml Q4H PRN HHN Shortness of Breath 10/02/18 08:15 10/07/18 08:14 Cefepime HCl 0.5 gm/Dextrose 55 ml @ 110 mls/hr Q24H IVPB 10/03/18 16:00 10/10/18 15:59 10/03/18 15:39 Chlorhexidine Gluconate (Guerita-Hex 2%) 1 applic DAILY@2000 TOPIC 10/02/18 20:00 11/01/18 19:59 10/03/18 21:10 Dextrose 1,000 ml @ 150 mls/hr Q6H40M IV 10/03/18 11:15 11/02/18 11:14 10/04/18 06:39 Heparin Sodium (Porcine) (Heparin 5000 units/ml) 5,000 units EVERY 12 HOURS SUBQ 10/02/18 09:00 11/01/18 08:59 10/03/18 08:26 Lidocaine HCl (Xylocaine 1% 30ml) 30 ml NOW PRN INJ Radiology Procedure 10/03/18 11:15 10/06/18 11:01 Magnesium Sulfate 100 ml @ 100 mls/hr Q1H IVPB 10/04/18 10:00 10/04/18 11:59 10/04/18 11:15 Nitroglycerin (Ntg) 0.4 mg Q5M PRN SL Prn Chest Pain 10/02/18 08:15 11/01/18 08:14 Norepinephrine Bitartrate 4 mg/ Dextrose 250 ml @ 0 mls/hr Q24H IV 10/02/18 08:45 11/01/18 08:44 Olanzapine (ZyPREXA) 2.5 mg BEDTIME ORAL 10/04/18 21:00 11/03/18 20:59 Olanzapine (ZyPREXA) 2.5 mg Q6H PRN ORAL Agitation 10/04/18 11:30 11/03/18 11:29 Pantoprazole (Protonix) 40 mg DAILY IVP 10/02/18 09:00 11/01/18 08:59 10/04/18 09:11 Polyethylene Glycol (Miralax) 17 gm BEDTIME ORAL 10/02/18 21:00 11/01/18 20:59 10/02/18 21:17 Potassium Chloride 100 ml @ 100 mls/hr Q1H IVPB 10/04/18 10:00 10/04/18 11:59 10/04/18 11:15 Vancomycin HCl (Vanco rx to dose) 1 ea DAILY PRN MISC Per rx protocol 10/02/18 08:15 11/01/18 08:14 Nuzhat Galicia M.D. Oct 04, 2018 11:46
[2018-10-04] MEDS ORDERED: NS IV SCH (14:00)
[2018-10-04] MEDS ORDERED: DAPTOMYCIN IV SCH (14:00)
--- NOTE | 2018-10-04 15:52 | Diagnostic Imaging Report ---
Indication: Dyspnea Technique: One view of the chest Comparison: none Findings: Nasogastric tube projects beyond the edge of image, presumably well within the stomach. There is some atelectasis at the left lateral lung base. Lungs and pleural spaces are otherwise clear. Heart size is normal. The aorta is tortuous ectatic and calcified. The top of a left nephroureteral stent is noted. There is a left chest pacemaker again noted. A density over the mid upper abdomen previously demonstrated is no longer visualized Impression: No acute process. Findings as noted
[2018-10-04] MEDS: Cefepime HCl 0.5 GM in D5W 55 ML IVPB SCH (16:00)
--- NOTE | 2018-10-04 16:23 | Cardiac Electrophysiology PN ---
Assessment/Plan Assessment/Plan 1. Atrial fibrillation with rapid ventricular response. In SR but still goes in and out of fib with RVR Likely secondary to severe dehydration and azotemia. Start Cardizem 30 mg ng tid and Amiodarone 400 NG bid. Start Eliquis 2.5 bid 2. Status post Biotronik pacemaker implantation. Interrogation showed Nl fx. Lots of atrial flutter with RVR 3. Troponin leak due to renal failure, levels of 0.25, 0.27 and 0.27. 4. Severe hypernatremia, sodium 171. Intravenous fluids per Dr. Shaver.Improved to 140s 5. Severe azotemia. BUN 117 and creatinine 5.5. IV fluids per Dr. Shaver. Down to 91/4.3 6. Dementia. 7. Sepsis. On IV antibiotic. 8. DVT Left Leg. Start Eliquis Subjective Subjective Was in atrial Fib up to 150s at 3 am this am. Biotronic pacer interrogation noted. On Venturi mask. S/P 1 unit blood transfusion. IVC filter cancelled. Objective Last 24 Hour Vital Signs Date Time Temp Pulse Resp B/P (MAP) Pulse Ox O2 Delivery O2 Flow Rate FiO2 10/04/18 16:00 97.6 63 14 114/45 (68) 100 10/04/18 16:00 Venturi Mask 10.0 10/04/18 15:00 60 23 123/53 (76) 100 10/04/18 14:00 97 17 120/72 (88) 100 10/04/18 13:00 68 17 96/46 (63) 100 10/04/18 12:00 Venturi Mask 10.0 10/04/18 12:00 78 10/04/18 12:00 98.9 86 18 103/46 (65) 99 10/04/18 11:18 121 25 Venturi Mask 10.0 45 10/04/18 11:18 Venturi Mask 10.0 45 10/04/18 11:18 93 Venturi Mask 10.0 45 10/04/18 11:00 102 17 110/72 (85) 100 10/04/18 10:00 103 16 114/93 (100) 100 10/04/18 09:00 108 17 108/53 (71) 100 10/04/18 08:45 109/63 10/04/18 08:00 Venturi Mask 10.0 10/04/18 08:00 97.7 102 20 109/63 (78) 100 10/04/18 08:00 123 10/04/18 07:00 110 19 105/52 (69) 100 10/04/18 06:00 117 19 108/50 (69) 100 10/04/18 05:00 130 22 118/88 (98) 100 10/04/18 04:00 147 10/04/18 04:00 Venturi Mask 10.0 10/04/18 04:00 97.5 150 21 112/65 (81) 100 10/04/18 03:52 134 10/04/18 03:00 147 23 89/43 (58) 100 10/04/18 02:00 147 23 103/51 (68) 100 10/04/18 01:41 139 10/04/18 01:00 130 23 86/49 (61) 96 10/04/18 00:00 Venturi Mask 10.0 10/04/18 00:00 161 10/04/18 00:00 98.7 145 26 85/61 (69) 98 10/03/18 23:00 148 22 107/60 (76) 98 10/03/18 22:00 127 22 118/94 (102) 96 10/03/18 21:00 128 21 115/83 (94) 96 10/03/18 20:00 Venturi Mask 10.0 10/03/18 20:00 125 10/03/18 20:00 97.2 125 26 109/73 (85) 98 10/03/18 19:30 125 24 Venturi Mask 10.0 45 10/03/18 19:30 Venturi Mask 10.0 45 10/03/18 19:30 92 Venturi Mask 10.0 45 10/03/18 19:00 98 25 128/76 (93) 96 10/03/18 18:00 119 21 125/73 (90) 96 10/03/18 17:00 104 19 125/73 (90) 95 Intake and Output 10/03/18 10/04/18 19:00 07:00 Intake Total 1845.562 ml 1647 ml Output Total 705 ml 1490 ml Balance 1140.562 ml 157 ml Intake IV Total 1595.562 ml 1647 ml Blood Product 250 ml Output Urine Total 705 ml 1490 ml # Bowel Movements 2 Laboratory Tests Test 10/04/18 04:45 White Blood Count 16.7 K/UL (4.8-10.8) H Red Blood Count 3.64 M/UL (4.20-5.40) L Hemoglobin 9.9 G/DL (12.0-16.0) #L Hematocrit 29.9 % (37.0-47.0) #L Mean Corpuscular Volume 82 FL (80-99) Mean Corpuscular Hemoglobin 27.2 PG (27.0-31.0) Mean Corpuscular Hemoglobin Concent 33.1 G/DL (32.0-36.0) Red Cell Distribution Width 15.3 % (11.6-14.8) H Platelet Count 148 K/UL (150-450) L Mean Platelet Volume 8.1 FL (6.5-10.1) Neutrophils (%) (Auto) % (45.0-75.0) Lymphocytes (%) (Auto) % (20.0-45.0) Monocytes (%) (Auto) % (1.0-10.0) Eosinophils (%) (Auto) % (0.0-3.0) Basophils (%) (Auto) % (0.0-2.0) Differential Total Cells Counted 100 Neutrophils % (Manual) 83 % (45-75) H Lymphocytes % (Manual) 9 % (20-45) L Monocytes % (Manual) 5 % (1-10) Eosinophils % (Manual) 1 % (0-3) Basophils % (Manual) 0 % (0-2) Band Neutrophils 2 % (0-8) Nucleated Red Blood Cells 5 /100 WBC Platelet Estimate Decreased L Platelet Morphology Normal Hypochromasia 2+ Anisocytosis 1+ Spherocytes 1+ Sodium Level 147 MMOL/L (136-145) H Potassium Level 3.2 MMOL/L (3.5-5.1) L Chloride Level 114 MMOL/L (98-107) H Carbon Dioxide Level 17 MMOL/L (21-32) L Anion Gap 16 mmol/L (5-15) H Blood Urea Nitrogen 91 mg/dL (7-18) H Creatinine 4.3 MG/DL (0.55-1.30) H Estimat Glomerular Filtration Rate mL/min (>60) Glucose Level 92 MG/DL (74-106) Uric Acid 10.7 MG/DL (2.6-7.2) H Calcium Level 8.1 MG/DL (8.5-10.1) L Phosphorus Level 3.5 MG/DL (2.5-4.9) Magnesium Level 1.2 MG/DL (1.8-2.4) L Total Bilirubin 0.4 MG/DL (0.2-1.0) Aspartate Amino Transf (AST/SGOT) 89 U/L (15-37) H Alanine Aminotransferase (ALT/SGPT) 24 U/L (12-78) Alkaline Phosphatase 68 U/L (46-116) Troponin I 0.227 ng/mL (0.000-0.056) Pro-B-Type Natriuretic Peptide 9047 pg/mL (0-125) H Total Protein 5.6 G/DL (6.4-8.2) L Albumin 2.1 G/DL (3.4-5.0) L Globulin 3.5 g/dL Albumin/Globulin Ratio 0.6 (1.0-2.7) L Microbiology Date/Time Source Procedure Growth Status 10/02/18 16:20 Blood Blood Culture - Preliminary NO GROWTH AFTER 24 HOURS Resulted 10/02/18 16:10 Blood Blood Culture - Preliminary NO GROWTH AFTER 24 HOURS Resulted 10/01/18 23:30 Blood Blood Culture - Preliminary NO GROWTH AFTER 48 HOURS Resulted 10/01/18 23:20 Blood Blood Culture - Preliminary NO GROWTH AFTER 48 HOURS Resulted 10/04/18 00:10 Sputum Induced Gram Stain - Final Resulted 10/04/18 00:10 Sputum Induced Sputum Culture Pending Resulted 10/01/18 22:40 Urine,Clean Catch Urine Culture - Preliminary Streptococcus Species Resulted Objective HEAD AND NECK: Mild jugular venous distention. LUNGS: Decreased breath sounds. CARDIOVASCULAR: Pacemaker in the left subclavian and irregular S1 and S2. ABDOMEN: Soft. EXTREMITIES: Contracted with no edema. BREASTS: Her left breast has a mass. Brock Nicole MD Oct 04, 2018 16:23
--- NOTE | 2018-10-04 17:15 | Progress Note ---
DATE: 10/04/2018 SUBJECTIVE: The patient is in bed, agitated and is confused, waxing and waning consciousness, not able to be engaged and answers questions appropriately, has cognitive impairment. MENTAL STATUS EXAMINATION: The patient is confused, waxing and waning consciousness, not engaged, has severe cognitive impairment. Cognition is impaired. ASSESSMENT: Encephalopathy . PLAN: 1. We will start the patient on p.r.n. antipsychotics. 2. Provide the patient with reality orientation and supportive therapy. Naida Gallardo M.D. DR: Mindy JOB#: [id number] CC:
--- NOTE | 2018-10-04 19:07 | Internal Med Progress Note ---
Subjective Date of Service: Oct 04, 2018 Physician Name Guido Augustin Attending Physician Moses Gaona MD Current Medications Medications (Trade) Dose Ordered Sig/Liz Route PRN Reason Start Time Stop Time Status Last Admin Dose Admin Albuterol/ Ipratropium (Albuterol/ Ipratropium) 3 ml Q4H PRN HHN Shortness of Breath 10/02/18 08:15 10/07/18 08:14 Amiodarone HCl (Cordarone) 200 mg EVERY 12 HOURS ORAL 10/04/18 21:00 11/03/18 20:59 Apixaban (Eliquis) 2.5 mg Q12HR ORAL 10/04/18 21:00 11/03/18 20:59 Cefepime HCl 0.5 gm/Dextrose 55 ml @ 110 mls/hr Q24H IVPB 10/03/18 16:00 10/10/18 15:59 10/04/18 16:00 Chlorhexidine Gluconate (Guerita-Hex 2%) 1 applic DAILY@2000 TOPIC 10/02/18 20:00 11/01/18 19:59 10/03/18 21:10 Daptomycin 200 mg/ Sodium Chloride 55 ml @ 100 mls/hr Q48H IV 10/04/18 14:00 10/11/18 13:59 10/04/18 14:03 Dextrose 1,000 ml @ 150 mls/hr Q6H40M IV 10/03/18 11:15 11/02/18 11:14 10/04/18 13:08 Diltiazem HCl (Cardizem) 30 mg EVERY 8 HOURS ORAL 10/04/18 22:00 11/03/18 21:59 Lidocaine HCl (Xylocaine 1% 30ml) 30 ml NOW PRN INJ Radiology Procedure 10/03/18 11:15 10/06/18 11:01 Nitroglycerin (Ntg) 0.4 mg Q5M PRN SL Prn Chest Pain 10/02/18 08:15 11/01/18 08:14 Norepinephrine Bitartrate 4 mg/ Dextrose 250 ml @ 0 mls/hr Q24H IV 10/02/18 08:45 11/01/18 08:44 Olanzapine (ZyPREXA) 2.5 mg BEDTIME ORAL 10/04/18 21:00 11/03/18 20:59 Olanzapine (ZyPREXA) 2.5 mg Q6H PRN ORAL Agitation 10/04/18 11:30 11/03/18 11:29 Pantoprazole (Protonix) 40 mg DAILY IVP 10/02/18 09:00 11/01/18 08:59 10/04/18 09:11 Polyethylene Glycol (Miralax) 17 gm BEDTIME ORAL 10/02/18 21:00 11/01/18 20:59 10/02/18 21:17 Allergies: Coded Allergies: No Known Allergies (Unverified , 01/02/13) Subjective 87 YO F admitted [facility] probable sepsis. Now respiratory failure and renal failure. Cover for Int Med-Dr Gaona. ICU. On venturi mask Objective Last Vital Signs Date Time Temp Pulse Resp B/P (MAP) Pulse Ox O2 Delivery O2 Flow Rate FiO2 10/04/18 18:00 62 16 125/42 (69) 100 10/04/18 16:00 97.6 10/04/18 16:00 Venturi Mask 10.0 10/04/18 11:18 45 Laboratory Tests Test 10/04/18 04:45 White Blood Count 16.7 K/UL (4.8-10.8) H Red Blood Count 3.64 M/UL (4.20-5.40) L Hemoglobin 9.9 G/DL (12.0-16.0) #L Hematocrit 29.9 % (37.0-47.0) #L Mean Corpuscular Volume 82 FL (80-99) Mean Corpuscular Hemoglobin 27.2 PG (27.0-31.0) Mean Corpuscular Hemoglobin Concent 33.1 G/DL (32.0-36.0) Red Cell Distribution Width 15.3 % (11.6-14.8) H Platelet Count 148 K/UL (150-450) L Mean Platelet Volume 8.1 FL (6.5-10.1) Neutrophils (%) (Auto) % (45.0-75.0) Lymphocytes (%) (Auto) % (20.0-45.0) Monocytes (%) (Auto) % (1.0-10.0) Eosinophils (%) (Auto) % (0.0-3.0) Basophils (%) (Auto) % (0.0-2.0) Differential Total Cells Counted 100 Neutrophils % (Manual) 83 % (45-75) H Lymphocytes % (Manual) 9 % (20-45) L Monocytes % (Manual) 5 % (1-10) Eosinophils % (Manual) 1 % (0-3) Basophils % (Manual) 0 % (0-2) Band Neutrophils 2 % (0-8) Nucleated Red Blood Cells 5 /100 WBC Platelet Estimate Decreased L Platelet Morphology Normal Hypochromasia 2+ Anisocytosis 1+ Spherocytes 1+ Sodium Level 147 MMOL/L (136-145) H Potassium Level 3.2 MMOL/L (3.5-5.1) L Chloride Level 114 MMOL/L (98-107) H Carbon Dioxide Level 17 MMOL/L (21-32) L Anion Gap 16 mmol/L (5-15) H Blood Urea Nitrogen 91 mg/dL (7-18) H Creatinine 4.3 MG/DL (0.55-1.30) H Estimat Glomerular Filtration Rate mL/min (>60) Glucose Level 92 MG/DL (74-106) Uric Acid 10.7 MG/DL (2.6-7.2) H Calcium Level 8.1 MG/DL (8.5-10.1) L Phosphorus Level 3.5 MG/DL (2.5-4.9) Magnesium Level 1.2 MG/DL (1.8-2.4) L Total Bilirubin 0.4 MG/DL (0.2-1.0) Aspartate Amino Transf (AST/SGOT) 89 U/L (15-37) H Alanine Aminotransferase (ALT/SGPT) 24 U/L (12-78) Alkaline Phosphatase 68 U/L (46-116) Troponin I 0.227 ng/mL (0.000-0.056) Pro-B-Type Natriuretic Peptide 9047 pg/mL (0-125) H Total Protein 5.6 G/DL (6.4-8.2) L Albumin 2.1 G/DL (3.4-5.0) L Globulin 3.5 g/dL Albumin/Globulin Ratio 0.6 (1.0-2.7) L Microbiology Date/Time Source Procedure Growth Status 10/02/18 16:20 Blood Blood Culture - Preliminary NO GROWTH AFTER 24 HOURS Resulted 10/02/18 16:10 Blood Blood Culture - Preliminary NO GROWTH AFTER 24 HOURS Resulted 10/01/18 23:30 Blood Blood Culture - Preliminary NO GROWTH AFTER 48 HOURS Resulted 10/01/18 23:20 Blood Blood Culture - Preliminary NO GROWTH AFTER 48 HOURS Resulted 10/04/18 00:10 Sputum Induced Gram Stain - Final Resulted 10/04/18 00:10 Sputum Induced Sputum Culture Pending Resulted 10/01/18 22:40 Urine,Clean Catch Urine Culture - Preliminary Streptococcus Species Resulted Intake and Output 10/03/18 10/04/18 19:00 07:00 Intake Total 1845.562 ml 1647 ml Output Total 705 ml 1490 ml Balance 1140.562 ml 157 ml Intake IV Total 1595.562 ml 1647 ml Blood Product 250 ml Output Urine Total 705 ml 1490 ml # Bowel Movements 2 Objective General Appearance: moderate distress, lethargic, thin EENT: PERRL/EOMI, normal ENT inspection Neck: non-tender, normal alignment, supple, normal inspection Cardiovascular: regular rhythm, no gallop/murmur, no JVD, tachycardia Respiratory/Chest: Venturi mask; chest wall non-tender, crackles/rales, rhonchi - bilaterally, expiratory wheezing Abdomen: normal bowel sounds, non tender, soft, no organomegaly, no mass Extremities: normal range of motion, non-tender 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 (2) Nephrolithiasis Assessment & Plan: S/P stent. See nephrology note. (3) UTI (urinary tract infection) Assessment & Plan: Streptococcus sp. Continue vanco and cefepime per ID. Await culture results. (4) Sepsis Assessment & Plan: Continue vanco and cefepime per ID. Await cultures. (5) Hypernatremia Assessment & Plan: Resolving. See nephrology note. Continue D5W (6) Pacemaker Assessment & Plan: see cardiology note. (7) Hyperkalemia (8) Renal failure Assessment & Plan: See nephrology note. (9) Atrial fibrillation with rapid ventricular response Assessment & Plan: See cardiology note. (10) CHF (congestive heart failure) (11) Elevated troponin Assessment & Plan: See cardiology note. Status: not improved Guido Augustin MD Oct 04, 2018 19:07
--- NOTE | 2018-10-04 19:20 | Cardiology Progress Note ---
Assessment/Plan Assessment/Plan 1. Atrial fibrillation with rapid ventricular response, appears to be possibly permanent. 2. Respiratory failure with hypoxemia. 3. Hypotension/septic shock. 4. History of skin cancer, basal cell carcinoma to the lymph nodes. 5. 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 6. History of myocardial infarction. No intervention in 2003. 7. History of diverticulitis. 8. History of recent ureteral stent replacement. 9. DVT acute 10. anemia ivc filter not done prelim echo noted ef ok need to review tele noted afib ekg noted trop not change unlikely related to coronary ischemia liekly related to cri pulm moreno she is better now with og tube noted dr horne started on amiod and cardizem addalton leon has a pacer confused previously felt not to be a candidate for fdc anticoag per dtr due to fall risk although she will not be walking at least at this point was started on eliquis watch h/h stool ob positive s/p 1 unit of prbc yest out of icu if stabel hemodynamically seems better Subjective ROS Limited/Unobtainable: Yes Objective Last 24 Hour Vital Signs Date Time Temp Pulse Resp B/P (MAP) Pulse Ox O2 Delivery O2 Flow Rate FiO2 10/04/18 18:00 62 16 125/42 (69) 100 10/04/18 17:00 91 16 91/50 (64) 100 10/04/18 16:00 97.6 63 14 114/45 (68) 100 10/04/18 16:00 Venturi Mask 10.0 10/04/18 15:43 66 10/04/18 15:00 60 23 123/53 (76) 100 10/04/18 14:00 97 17 120/72 (88) 100 10/04/18 13:00 68 17 96/46 (63) 100 10/04/18 12:00 Venturi Mask 10.0 10/04/18 12:00 78 10/04/18 12:00 98.9 86 18 103/46 (65) 99 10/04/18 11:18 121 25 Venturi Mask 10.0 45 10/04/18 11:18 Venturi Mask 10.0 45 10/04/18 11:18 93 Venturi Mask 10.0 45 10/04/18 11:00 102 17 110/72 (85) 100 10/04/18 10:00 103 16 114/93 (100) 100 10/04/18 09:00 108 17 108/53 (71) 100 10/04/18 08:45 109/63 10/04/18 08:00 Venturi Mask 10.0 10/04/18 08:00 97.7 102 20 109/63 (78) 100 10/04/18 08:00 123 10/04/18 07:00 110 19 105/52 (69) 100 10/04/18 06:00 117 19 108/50 (69) 100 10/04/18 05:00 130 22 118/88 (98) 100 10/04/18 04:00 147 10/04/18 04:00 Venturi Mask 10.0 10/04/18 04:00 97.5 150 21 112/65 (81) 100 10/04/18 03:52 134 10/04/18 03:00 147 23 89/43 (58) 100 10/04/18 02:00 147 23 103/51 (68) 100 10/04/18 01:41 139 10/04/18 01:00 130 23 86/49 (61) 96 10/04/18 00:00 Venturi Mask 10.0 10/04/18 00:00 161 10/04/18 00:00 98.7 145 26 85/61 (69) 98 10/03/18 23:00 148 22 107/60 (76) 98 10/03/18 22:00 127 22 118/94 (102) 96 10/03/18 21:00 128 21 115/83 (94) 96 10/03/18 20:00 Venturi Mask 10.0 10/03/18 20:00 125 10/03/18 20:00 97.2 125 26 109/73 (85) 98 10/03/18 19:30 125 24 Venturi Mask 10.0 45 10/03/18 19:30 Venturi Mask 10.0 45 10/03/18 19:30 92 Venturi Mask 10.0 45 Neck: supple Cardiovascular: regularly irregular Respiratory/Chest: lungs clear, normal breath sounds Abdomen: normal bowel sounds, non tender, soft Extremities: no swelling Intake and Output 10/03/18 10/04/18 19:00 07:00 Intake Total 1845.562 ml 1647 ml Output Total 705 ml 1490 ml Balance 1140.562 ml 157 ml Intake IV Total 1595.562 ml 1647 ml Blood Product 250 ml Output Urine Total 705 ml 1490 ml # Bowel Movements 2 Laboratory Tests Test 10/04/18 04:45 White Blood Count 16.7 K/UL (4.8-10.8) H Red Blood Count 3.64 M/UL (4.20-5.40) L Hemoglobin 9.9 G/DL (12.0-16.0) #L Hematocrit 29.9 % (37.0-47.0) #L Mean Corpuscular Volume 82 FL (80-99) Mean Corpuscular Hemoglobin 27.2 PG (27.0-31.0) Mean Corpuscular Hemoglobin Concent 33.1 G/DL (32.0-36.0) Red Cell Distribution Width 15.3 % (11.6-14.8) H Platelet Count 148 K/UL (150-450) L Mean Platelet Volume 8.1 FL (6.5-10.1) Neutrophils (%) (Auto) % (45.0-75.0) Lymphocytes (%) (Auto) % (20.0-45.0) Monocytes (%) (Auto) % (1.0-10.0) Eosinophils (%) (Auto) % (0.0-3.0) Basophils (%) (Auto) % (0.0-2.0) Differential Total Cells Counted 100 Neutrophils % (Manual) 83 % (45-75) H Lymphocytes % (Manual) 9 % (20-45) L Monocytes % (Manual) 5 % (1-10) Eosinophils % (Manual) 1 % (0-3) Basophils % (Manual) 0 % (0-2) Band Neutrophils 2 % (0-8) Nucleated Red Blood Cells 5 /100 WBC Platelet Estimate Decreased L Platelet Morphology Normal Hypochromasia 2+ Anisocytosis 1+ Spherocytes 1+ Sodium Level 147 MMOL/L (136-145) H Potassium Level 3.2 MMOL/L (3.5-5.1) L Chloride Level 114 MMOL/L (98-107) H Carbon Dioxide Level 17 MMOL/L (21-32) L Anion Gap 16 mmol/L (5-15) H Blood Urea Nitrogen 91 mg/dL (7-18) H Creatinine 4.3 MG/DL (0.55-1.30) H Estimat Glomerular Filtration Rate mL/min (>60) Glucose Level 92 MG/DL (74-106) Uric Acid 10.7 MG/DL (2.6-7.2) H Calcium Level 8.1 MG/DL (8.5-10.1) L Phosphorus Level 3.5 MG/DL (2.5-4.9) Magnesium Level 1.2 MG/DL (1.8-2.4) L Total Bilirubin 0.4 MG/DL (0.2-1.0) Aspartate Amino Transf (AST/SGOT) 89 U/L (15-37) H Alanine Aminotransferase (ALT/SGPT) 24 U/L (12-78) Alkaline Phosphatase 68 U/L (46-116) Troponin I 0.227 ng/mL (0.000-0.056) Pro-B-Type Natriuretic Peptide 9047 pg/mL (0-125) H Total Protein 5.6 G/DL (6.4-8.2) L Albumin 2.1 G/DL (3.4-5.0) L Globulin 3.5 g/dL Albumin/Globulin Ratio 0.6 (1.0-2.7) L Microbiology Date/Time Source Procedure Growth Status 10/02/18 16:20 Blood Blood Culture - Preliminary NO GROWTH AFTER 24 HOURS Resulted 10/02/18 16:10 Blood Blood Culture - Preliminary NO GROWTH AFTER 24 HOURS Resulted 10/01/18 23:30 Blood Blood Culture - Preliminary NO GROWTH AFTER 48 HOURS Resulted 10/01/18 23:20 Blood Blood Culture - Preliminary NO GROWTH AFTER 48 HOURS Resulted 10/04/18 00:10 Sputum Induced Gram Stain - Final Resulted 10/04/18 00:10 Sputum Induced Sputum Culture Pending Resulted 10/01/18 22:40 Urine,Clean Catch Urine Culture - Preliminary Streptococcus Species Resulted Konrad Rodas MD Oct 04, 2018 19:19
[2018-10-04] MEDS: Dyna-Hex 2% Top Sol 2oz TOPIC SCH (20:05)
[2018-10-04] MEDS: Miralax 17gm pkt ORAL SCH (21:00)
[2018-10-04] MEDS: OLANZapine 2.5mg tab ORAL SCH (22:18)
[2018-10-04] MEDS: Amiodarone 200mg tab ORAL SCH (22:18)
[2018-10-04] MEDS: Eliquis 2.5mg tablet ORAL SCH (22:19)
[2018-10-04] MEDS: dilTIAZem HCl 30mg tab ORAL SCH (22:27)
[2018-10-05] VITALS (23 sets, daily range): BP systolic 114–156; BP diastolic 51–102
[2018-10-05] MEDS: dilTIAZem HCl 30mg tab ORAL SCH ×3 (05:43→22:52)
[2018-10-05 05:44] LABS: CREATINE KINASE 574 U/L (26-308)
[2018-10-05 07:33] LABS: HEMATOCRIT 29.5 % (37.0-47.0); MEAN CORPUSCULAR VOLUME 81 FL (80-99); PLATELET COUNT 130 K/UL (150-450); RED BLOOD COUNT 3.66 M/UL (4.20-5.40); RED CELL DISTRIBUTION WIDTH 14.6 % (11.6-14.8); WHITE BLOOD COUNT 14.2 K/UL (4.8-10.8)
[2018-10-05 07:39] LABS: ALANINE AMINOTRANSFERASE 31 U/L (12-78); ALBUMIN 1.8 G/DL (3.4-5.0); ALBUMIN/GLOBULIN RATIO 0.5 (1.0-2.7); ALKALINE PHOSPHATASE 84 U/L (46-116); ANION GAP 18 mmol/L (5-15); ASPARTATE AMINO TRANSFERASE 72 U/L (15-37); BILIRUBIN,TOTAL 0.3 MG/DL (0.2-1.0); BLOOD UREA NITROGEN 77 mg/dL (7-18); CALCIUM 8.2 MG/DL (8.5-10.1); CARBON DIOXIDE 12 MMOL/L (21-32); CHLORIDE 108 MMOL/L (98-107); CREATININE 3.7 MG/DL (0.55-1.30); SODIUM 138 MMOL/L (136-145)
[2018-10-05 07:41] LABS: POTASSIUM 2.7 MMOL/L (3.5-5.1)
[2018-10-05] MEDS: D5 1/2NS 1,000 ML IV SCH ×2 (08:30→22:00)
[2018-10-05] MEDS: Pantoprazole Inj IVP SCH (09:23)
[2018-10-05] MEDS: Amiodarone 200mg tab ORAL SCH ×2 (09:24→20:46)
[2018-10-05] MEDS: Eliquis 2.5mg tablet ORAL SCH ×2 (09:24→20:46)
--- NOTE | 2018-10-05 10:24 | Diagnostic Imaging Report ---
APPROVED REPORT CPT Code: 05613 Present Symptoms Shortness of breath Comments: Hx of line (CFV and proximal SFV) RIGHT LEG: Venous imaging reveals a patent deep venous system. There is no evidence of thrombus within the femoral, popliteal or tibial segments. The greater saphenous vein is also within normal limits. Doppler indicates normal spontaneous flow within these segments. LEFT LEG: Venous imaging reveals acute thrombus in the common femoral, popliteal and calf veins (posterior tibial and peroneal). Greater saphenous vein within normal limits. The calf vein (anterior tibial) is within limits. MEY Lovett was notified of abnormal results at 1035 hours.
--- NOTE | 2018-10-05 10:47 | Pulmonolgy Critical Care Note ---
Critical Care - Asmt/Plan Problems: (1) Septic shock (2) ATN (acute tubular necrosis) (3) Acute encephalopathy (4) DVT (deep venous thrombosis) (5) NSTEMI (non-ST elevated myocardial infarction) (6) Hyperkalemia (7) Severe protein-calorie malnutrition Respiratory: monitor respiratory rate, adjust FIO2, CXR Cardiac: continue pressors, continue to monitor HR/BP Renal: F/U I&O, keep IV fluid, check electrolytes Infectious Disease: continue antibiotics Gastrointestinal: continue feedings/current rate Endocrine: monitor blood sugar, check HgA1C Hematologic: transfuse if hgb<8.5 Neurologic: PRN Morphine Affect: PRN ativan Prophylaxis: Protonix Critical Care - Objective Last 24 Hour Vital Signs Date Time Temp Pulse Resp B/P (MAP) Pulse Ox O2 Delivery O2 Flow Rate FiO2 10/05/18 09:00 97.8 75 20 138/81 (100) 100 10/05/18 08:45 128/65 10/05/18 08:00 Venturi Mask 10.0 10/05/18 08:00 76 20 122/78 (93) 100 10/05/18 08:00 76 10/05/18 07:00 78 20 128/78 (95) 100 10/05/18 06:55 Venturi Mask 10.0 45 10/05/18 06:55 71 14 Venturi Mask 10.0 45 10/05/18 06:55 100 Venturi Mask 10.0 45 10/05/18 06:00 79 20 156/95 (115) 100 10/05/18 05:43 124 156/95 10/05/18 05:00 79 20 156/95 (115) 100 10/05/18 04:00 79 10/05/18 04:00 97.5 79 19 119/71 (87) 100 10/05/18 04:00 Venturi Mask 10.0 10/05/18 03:00 88 19 124/56 (78) 100 10/05/18 02:00 83 19 144/80 (101) 100 10/05/18 01:00 82 19 114/56 (75) 100 10/05/18 00:00 82 10/05/18 00:00 Venturi Mask 10.0 10/05/18 00:00 97.5 90 19 144/56 (85) 100 10/04/18 23:00 76 19 152/77 (102) 100 10/04/18 22:27 70 129/87 10/04/18 22:00 72 22 129/87 (101) 100 10/04/18 21:00 96.5 71 21 117/44 (68) 100 10/04/18 20:00 Venturi Mask 10.0 10/04/18 20:00 78 10/04/18 20:00 78 15 117/44 (68) 100 10/04/18 19:36 Venturi Mask 8.0 40 10/04/18 19:36 100 Venturi Mask 8.0 40 10/04/18 19:35 60 15 Venturi Mask 10.0 45 10/04/18 19:00 62 14 117/40 (65) 100 10/04/18 18:00 62 16 125/42 (69) 100 10/04/18 17:00 91 16 91/50 (64) 100 10/04/18 16:00 97.6 63 14 114/45 (68) 100 10/04/18 16:00 Venturi Mask 10.0 10/04/18 15:43 66 10/04/18 15:00 60 23 123/53 (76) 100 10/04/18 14:00 97 17 120/72 (88) 100 10/04/18 13:00 68 17 96/46 (63) 100 10/04/18 12:00 Venturi Mask 10.0 10/04/18 12:00 78 10/04/18 12:00 98.9 86 18 103/46 (65) 99 10/04/18 11:18 121 25 Venturi Mask 10.0 45 10/04/18 11:18 Venturi Mask 10.0 45 10/04/18 11:18 93 Venturi Mask 10.0 45 10/04/18 11:00 102 17 110/72 (85) 100 Status: sedated Condition: critical HEENT: atraumatic Neck: full ROM Lungs: rales, rhonchi Heart: HR/BP stable, irregular Abdomen: soft, active bowel sounds Extremities: no C/C/E, edema Decubiti: location Micro: Microbiology Date/Time Source Procedure Growth Status 10/02/18 16:20 Blood Blood Culture - Preliminary NO GROWTH AFTER 48 HOURS Resulted 10/02/18 16:10 Blood Blood Culture - Preliminary NO GROWTH AFTER 48 HOURS Resulted 10/04/18 00:10 Sputum Induced Gram Stain - Final Resulted 10/04/18 00:10 Sputum Induced Sputum Culture Pending Resulted Accucheck: 159 Critical Care - Subjective ROS Limited/Unobtainable: Yes Condition: critical EKG Rhythm: Sinus Rhythm FI02: 45 Sputum Amount: None I&O: Intake and Output 10/04/18 10/05/18 18:59 06:59 Intake Total 2230 ml 1500 ml Output Total 1600 ml 1100 ml Balance 630 ml 400 ml Intake IV Total 2230 ml 1500 ml Output Urine Total 1600 ml 1100 ml CXR: no change Labs: Laboratory Tests Test 10/05/18 03:45 10/05/18 07:22 White Blood Count 14.2 K/UL (4.8-10.8) H Red Blood Count 3.66 M/UL (4.20-5.40) L Hemoglobin 10.0 G/DL (12.0-16.0) L Hematocrit 29.5 % (37.0-47.0) L Mean Corpuscular Volume 81 FL (80-99) Mean Corpuscular Hemoglobin 27.3 PG (27.0-31.0) Mean Corpuscular Hemoglobin Concent 33.9 G/DL (32.0-36.0) Red Cell Distribution Width 14.6 % (11.6-14.8) Platelet Count 130 K/UL (150-450) L Mean Platelet Volume 7.7 FL (6.5-10.1) Neutrophils (%) (Auto) % (45.0-75.0) Lymphocytes (%) (Auto) % (20.0-45.0) Monocytes (%) (Auto) % (1.0-10.0) Eosinophils (%) (Auto) % (0.0-3.0) Basophils (%) (Auto) % (0.0-2.0) Differential Total Cells Counted 100 Neutrophils % (Manual) 86 % (45-75) H Lymphocytes % (Manual) 8 % (20-45) L Monocytes % (Manual) 4 % (1-10) Eosinophils % (Manual) 0 % (0-3) Basophils % (Manual) 0 % (0-2) Band Neutrophils 2 % (0-8) Platelet Estimate Decreased L Platelet Morphology Normal Mary Cells 2+ Acanthocytes 1+ Total Creatine Kinase 574 U/L (26-308) H Sodium Level 138 MMOL/L (136-145) Potassium Level 2.7 MMOL/L (3.5-5.1) *L Chloride Level 108 MMOL/L (98-107) H Carbon Dioxide Level 12 MMOL/L (21-32) L Anion Gap 18 mmol/L (5-15) H Blood Urea Nitrogen 77 mg/dL (7-18) H Creatinine 3.7 MG/DL (0.55-1.30) H Estimat Glomerular Filtration Rate mL/min (>60) Glucose Level 129 MG/DL (74-106) H Calcium Level 8.2 MG/DL (8.5-10.1) L Total Bilirubin 0.3 MG/DL (0.2-1.0) Aspartate Amino Transf (AST/SGOT) 72 U/L (15-37) H Alanine Aminotransferase (ALT/SGPT) 31 U/L (12-78) Alkaline Phosphatase 84 U/L (46-116) Total Protein 5.4 G/DL (6.4-8.2) L Albumin 1.8 G/DL (3.4-5.0) L Globulin 3.6 g/dL Albumin/Globulin Ratio 0.5 (1.0-2.7) L Camila Aquino MD Oct 05, 2018 10:47
[2018-10-05] MEDS ORDERED: PACERONE200 MG ORAL (10:48)
[2018-10-05] MEDS ORDERED: ELIQUIS2.5 MG ORAL (10:48)
[2018-10-05] MEDS ORDERED: OLANZAPINE2.5 MG ORAL (10:48)
[2018-10-05] MEDS ORDERED: CARDIZEM30 MG ORAL (10:48)
[2018-10-05] MEDS: Sodium Citrate 30ml ORAL SCH ×2 (11:13→18:00)
--- NOTE | 2018-10-05 12:54 | Internal Med Progress Note ---
Subjective Date of Service: Oct 05, 2018 Physician Name Guido Augustin Attending Physician Moses Gaona MD Current Medications Medications (Trade) Dose Ordered Sig/Liz Route PRN Reason Start Time Stop Time Status Last Admin Dose Admin Albuterol/ Ipratropium (Albuterol/ Ipratropium) 3 ml Q4H PRN HHN Shortness of Breath 10/02/18 08:15 10/07/18 08:14 Amiodarone HCl (Cordarone) 200 mg EVERY 12 HOURS ORAL 10/04/18 21:00 11/03/18 20:59 10/05/18 09:24 Apixaban (Eliquis) 2.5 mg Q12HR ORAL 10/04/18 21:00 11/03/18 20:59 10/05/18 09:24 Cefepime HCl 0.5 gm/Dextrose 55 ml @ 110 mls/hr Q24H IVPB 10/03/18 16:00 10/10/18 15:59 10/04/18 16:00 Chlorhexidine Gluconate (Guerita-Hex 2%) 1 applic DAILY@2000 TOPIC 10/02/18 20:00 11/01/18 19:59 10/04/18 20:05 Daptomycin 200 mg/ Sodium Chloride 55 ml @ 100 mls/hr Q48H IV 10/04/18 14:00 10/11/18 13:59 10/04/18 14:03 Dextrose/Sodium Chloride 1,000 ml @ 75 mls/hr [id number] IV 10/05/18 08:30 11/04/18 08:29 10/05/18 08:30 Diltiazem HCl (Cardizem) 30 mg EVERY 8 HOURS ORAL 10/04/18 22:00 11/03/18 21:59 10/05/18 05:43 Lidocaine HCl (Xylocaine 1% 30ml) 30 ml NOW PRN INJ Radiology Procedure 10/03/18 11:15 10/06/18 11:01 Nitroglycerin (Ntg) 0.4 mg Q5M PRN SL Prn Chest Pain 10/02/18 08:15 11/01/18 08:14 Norepinephrine Bitartrate 4 mg/ Dextrose 250 ml @ 0 mls/hr Q24H IV 10/02/18 08:45 11/01/18 08:44 Olanzapine (ZyPREXA) 2.5 mg BEDTIME ORAL 10/04/18 21:00 11/03/18 20:59 10/04/18 22:18 Olanzapine (ZyPREXA) 2.5 mg Q6H PRN ORAL Agitation 10/04/18 11:30 11/03/18 11:29 Pantoprazole (Protonix) 40 mg DAILY IVP 10/02/18 09:00 11/01/18 08:59 10/05/18 09:23 Polyethylene Glycol (Miralax) 17 gm BEDTIME ORAL 10/02/18 21:00 11/01/18 20:59 10/04/18 21:00 Potassium Chloride 100 ml @ 100 mls/hr Q1H IVPB 10/05/18 09:00 10/05/18 14:59 10/05/18 11:00 Sodium Citrate (Bicitra) 30 ml EVERY 6 HOURS ORAL 10/05/18 12:00 11/04/18 11:59 10/05/18 11:13 Allergies: Coded Allergies: No Known Allergies (Unverified , 01/02/13) ROS Limited/Unobtainable: Yes Subjective 87 YO F admitted [facility] probable sepsis. Now respiratory failure and renal failure. Cover for Int Med-Dr Gaona. ICU. On venturi mask Objective Last Vital Signs Date Time Temp Pulse Resp B/P (MAP) Pulse Ox O2 Delivery O2 Flow Rate FiO2 10/05/18 12:00 77 18 133/80 (97) 100 10/05/18 12:00 Venturi Mask 10.0 10/05/18 09:00 97.8 10/05/18 06:55 45 Laboratory Tests Test 10/05/18 03:45 10/05/18 07:22 White Blood Count 14.2 K/UL (4.8-10.8) H Red Blood Count 3.66 M/UL (4.20-5.40) L Hemoglobin 10.0 G/DL (12.0-16.0) L Hematocrit 29.5 % (37.0-47.0) L Mean Corpuscular Volume 81 FL (80-99) Mean Corpuscular Hemoglobin 27.3 PG (27.0-31.0) Mean Corpuscular Hemoglobin Concent 33.9 G/DL (32.0-36.0) Red Cell Distribution Width 14.6 % (11.6-14.8) Platelet Count 130 K/UL (150-450) L Mean Platelet Volume 7.7 FL (6.5-10.1) Neutrophils (%) (Auto) % (45.0-75.0) Lymphocytes (%) (Auto) % (20.0-45.0) Monocytes (%) (Auto) % (1.0-10.0) Eosinophils (%) (Auto) % (0.0-3.0) Basophils (%) (Auto) % (0.0-2.0) Differential Total Cells Counted 100 Neutrophils % (Manual) 86 % (45-75) H Lymphocytes % (Manual) 8 % (20-45) L Monocytes % (Manual) 4 % (1-10) Eosinophils % (Manual) 0 % (0-3) Basophils % (Manual) 0 % (0-2) Band Neutrophils 2 % (0-8) Platelet Estimate Decreased L Platelet Morphology Normal [place] Cells 2+ Acanthocytes 1+ Total Creatine Kinase 574 U/L (26-308) H Sodium Level 138 MMOL/L (136-145) Potassium Level 2.7 MMOL/L (3.5-5.1) *L Chloride Level 108 MMOL/L (98-107) H Carbon Dioxide Level 12 MMOL/L (21-32) L Anion Gap 18 mmol/L (5-15) H Blood Urea Nitrogen 77 mg/dL (7-18) H Creatinine 3.7 MG/DL (0.55-1.30) H Estimat Glomerular Filtration Rate mL/min (>60) Glucose Level 129 MG/DL (74-106) H Calcium Level 8.2 MG/DL (8.5-10.1) L Total Bilirubin 0.3 MG/DL (0.2-1.0) Aspartate Amino Transf (AST/SGOT) 72 U/L (15-37) H Alanine Aminotransferase (ALT/SGPT) 31 U/L (12-78) Alkaline Phosphatase 84 U/L (46-116) Total Protein 5.4 G/DL (6.4-8.2) L Albumin 1.8 G/DL (3.4-5.0) L Globulin 3.6 g/dL Albumin/Globulin Ratio 0.5 (1.0-2.7) L Microbiology Date/Time Source Procedure Growth Status 10/02/18 16:20 Blood Blood Culture - Preliminary NO GROWTH AFTER 48 HOURS Resulted 10/02/18 16:10 Blood Blood Culture - Preliminary NO GROWTH AFTER 48 HOURS Resulted 10/04/18 00:10 Sputum Induced Gram Stain - Final Resulted 10/04/18 00:10 Sputum Induced Sputum Culture Pending Resulted Intake and Output 10/04/18 10/05/18 19:00 07:00 Intake Total 2310 ml 1350 ml Output Total 1460 ml 1120 ml Balance 850 ml 230 ml Intake IV Total 2310 ml 1350 ml Output Urine Total 1460 ml 1120 ml Objective General Appearance: moderate distress, lethargic, thin EENT: PERRL/EOMI, normal ENT inspection Neck: non-tender, normal alignment, supple, normal inspection Cardiovascular: regular rhythm, no gallop/murmur, no JVD, tachycardia Respiratory/Chest: Venturi mask; chest wall non-tender, crackles/rales, rhonchi - bilaterally, expiratory wheezing Abdomen: normal bowel sounds, non tender, soft, no organomegaly, no mass Extremities: normal range of motion, non-tender Neurologic: bonding molder II-XII grossly normal, no motor/sensory deficits Skin: normal pigmentation, warm/dry Assessment/Plan Problem List: (1) Respiratory failure Assessment & Plan: tolerating venturi mask See pulmonary note. (2) Nephrolithiasis Assessment & Plan: S/P stent. See nephrology note. (3) UTI (urinary tract infection) Assessment & Plan: Streptococcus sp. Continue vanco and cefepime per ID. Await culture results. (4) Sepsis Assessment & Plan: Continue vanco and cefepime per ID. Await cultures. (5) Hypernatremia Assessment & Plan: Resolving. See nephrology note. Continue D5W (6) Pacemaker Assessment & Plan: see cardiology note. (7) Hyperkalemia (8) Renal failure Assessment & Plan: See nephrology note. (9) Atrial fibrillation with rapid ventricular response Assessment & Plan: See cardiology note. (10) CHF (congestive heart failure) (11) Elevated troponin Assessment & Plan: See cardiology note. Status: not improved Guido Augustin MD Oct 05, 2018 12:54
--- NOTE | 2018-10-05 14:05 | General Progress Note ---
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 Subjective Neurologic/Psychiatric: Reports: anxiety, depressed, emotional problems Allergies: Coded Allergies: No Known Allergies (Unverified , 01/02/13) Objective Last 24 Hour Vital Signs Date Time Temp Pulse Resp B/P (MAP) Pulse Ox O2 Delivery O2 Flow Rate FiO2 10/05/18 13:29 89 134/66 10/05/18 13:00 75 18 125/78 (94) 100 10/05/18 12:00 77 18 133/80 (97) 100 10/05/18 12:00 77 10/05/18 12:00 Venturi Mask 10.0 10/05/18 11:00 78 18 134/84 (101) 100 10/05/18 10:00 74 20 125/77 (93) 100 10/05/18 09:00 97.8 75 20 138/81 (100) 100 10/05/18 08:45 128/65 10/05/18 08:00 Venturi Mask 10.0 10/05/18 08:00 76 20 122/78 (93) 100 10/05/18 08:00 76 10/05/18 07:00 78 20 128/78 (95) 100 10/05/18 06:55 Venturi Mask 10.0 45 10/05/18 06:55 71 14 Venturi Mask 10.0 45 10/05/18 06:55 100 Venturi Mask 10.0 45 10/05/18 06:00 79 20 156/95 (115) 100 10/05/18 05:43 124 156/95 10/05/18 05:00 79 20 156/95 (115) 100 10/05/18 04:00 79 10/05/18 04:00 97.5 79 19 119/71 (87) 100 10/05/18 04:00 Venturi Mask 10.0 10/05/18 03:00 88 19 124/56 (78) 100 10/05/18 02:00 83 19 144/80 (101) 100 10/05/18 01:00 82 19 114/56 (75) 100 10/05/18 00:00 82 10/05/18 00:00 Venturi Mask 10.0 10/05/18 00:00 97.5 90 19 144/56 (85) 100 10/04/18 23:00 76 19 152/77 (102) 100 10/04/18 22:27 70 129/87 10/04/18 22:00 72 22 129/87 (101) 100 10/04/18 21:00 96.5 71 21 117/44 (68) 100 10/04/18 20:00 Venturi Mask 10.0 10/04/18 20:00 78 10/04/18 20:00 78 15 117/44 (68) 100 10/04/18 19:36 Venturi Mask 8.0 40 10/04/18 19:36 100 Venturi Mask 8.0 40 10/04/18 19:35 60 15 Venturi Mask 10.0 45 10/04/18 19:00 62 14 117/40 (65) 100 10/04/18 18:00 62 16 125/42 (69) 100 10/04/18 17:00 91 16 91/50 (64) 100 10/04/18 16:00 97.6 63 14 114/45 (68) 100 10/04/18 16:00 Venturi Mask 10.0 10/04/18 15:43 66 10/04/18 15:00 60 23 123/53 (76) 100 Intake and Output 10/04/18 10/05/18 19:00 07:00 Intake Total 2310 ml 1350 ml Output Total 1460 ml 1120 ml Balance 850 ml 230 ml Intake IV Total 2310 ml 1350 ml Output Urine Total 1460 ml 1120 ml Laboratory Tests 10/05/18 03:45: White Blood Count 14.2H, Red Blood Count 3.66L, Hemoglobin 10.0L, Hematocrit 29.5L, Mean Corpuscular Volume 81, Mean Corpuscular Hemoglobin 27.3, Mean Corpuscular Hemoglobin Concent 33.9, Red Cell Distribution Width 14.6, Platelet Count 130L, Mean Platelet Volume 7.7, Neutrophils (%) (Auto) , Lymphocytes (%) ( Auto) , Monocytes (%) (Auto) , Eosinophils (%) (Auto) , Basophils (%) (Auto) , Differential Total Cells Counted 100, Neutrophils % (Manual) 86H, Lymphocytes % (Manual) 8L, Monocytes % (Manual) 4, Eosinophils % (Manual) 0, Basophils % ( Manual) 0, Band Neutrophils 2, Platelet Estimate DecreasedL, Platelet Morphology Normal, Mary Cells 2+, Acanthocytes 1+, Total Creatine Kinase 574H 10/05/18 07:22: Sodium Level 138, Potassium Level 2.7*L, Chloride Level 108H, Carbon Dioxide Level 12L, Anion Gap 18H, Blood Urea Nitrogen 77H, Creatinine 3.7H, Estimat Glomerular Filtration Rate , Glucose Level 129H, Calcium Level 8.2L, Total Bilirubin 0.3, Aspartate Amino Transf (AST/SGOT) 72H, Alanine Aminotransferase ( ALT/SGPT) 31, Alkaline Phosphatase 84, Total Protein 5.4L, Albumin 1.8L, Globulin 3.6, Albumin/Globulin Ratio 0.5L Height (Feet): 5 Height (Inches): 4.00 Weight (Pounds): 79 General Appearance: alert, confused, agitated Naida Gallardo MD Oct 05, 2018 14:05
[2018-10-05] MEDS ORDERED: Tubing Blood Filter IV ONE (15:44)
[2018-10-05] MEDS ORDERED: Tubing IV Secondary IV ONE (15:44)
[2018-10-05] MEDS ORDERED: NS 275ml ONE (15:44)
--- NOTE | 2018-10-05 16:05 | Nephrology Progress Note ---
Assessment/Plan Problem List: (1) ATN (acute tubular necrosis) (2) Septic shock (3) NSTEMI (non-ST elevated myocardial infarction) (4) Hyperkalemia Assessment Acute renal failure / Hyperkalemia resolved Sepsis / Shock / UTI NSTEMI (non-ST elevated myocardial infarction) Plan transfused- mag and K supplement as needed Fluid challenge D5W Antibiotics Avoid Nephrotoxics Urine studies pulmonary support poor prognosis Subjective ROS Limited/Unobtainable: No Constitutional: Reports: malaise, weakness Objective Objective Last 24 Hour Vital Signs Date Time Temp Pulse Resp B/P (MAP) Pulse Ox O2 Delivery O2 Flow Rate FiO2 10/05/18 16:00 Venturi Mask 10.0 10/05/18 15:00 75 18 128/74 (92) 100 10/05/18 14:00 74 18 134/77 (96) 100 10/05/18 13:29 89 134/66 10/05/18 13:00 75 18 125/78 (94) 100 10/05/18 12:00 77 18 133/80 (97) 100 10/05/18 12:00 77 10/05/18 12:00 Venturi Mask 10.0 10/05/18 11:00 78 18 134/84 (101) 100 10/05/18 10:00 74 20 125/77 (93) 100 10/05/18 09:00 97.8 75 20 138/81 (100) 100 10/05/18 08:45 128/65 10/05/18 08:00 Venturi Mask 10.0 10/05/18 08:00 76 20 122/78 (93) 100 10/05/18 08:00 76 10/05/18 07:00 78 20 128/78 (95) 100 10/05/18 06:55 Venturi Mask 10.0 45 10/05/18 06:55 71 14 Venturi Mask 10.0 45 10/05/18 06:55 100 Venturi Mask 10.0 45 10/05/18 06:00 79 20 156/95 (115) 100 10/05/18 05:43 124 156/95 10/05/18 05:00 79 20 156/95 (115) 100 10/05/18 04:00 79 10/05/18 04:00 97.5 79 19 119/71 (87) 100 10/05/18 04:00 Venturi Mask 10.0 10/05/18 03:00 88 19 124/56 (78) 100 10/05/18 02:00 83 19 144/80 (101) 100 10/05/18 01:00 82 19 114/56 (75) 100 10/05/18 00:00 82 10/05/18 00:00 Venturi Mask 10.0 10/05/18 00:00 97.5 90 19 144/56 (85) 100 10/04/18 23:00 76 19 152/77 (102) 100 10/04/18 22:27 70 129/87 10/04/18 22:00 72 22 129/87 (101) 100 10/04/18 21:00 96.5 71 21 117/44 (68) 100 10/04/18 20:00 Venturi Mask 10.0 10/04/18 20:00 78 10/04/18 20:00 78 15 117/44 (68) 100 10/04/18 19:36 Venturi Mask 8.0 40 10/04/18 19:36 100 Venturi Mask 8.0 40 10/04/18 19:35 60 15 Venturi Mask 10.0 45 10/04/18 19:00 62 14 117/40 (65) 100 10/04/18 18:00 62 16 125/42 (69) 100 10/04/18 17:00 91 16 91/50 (64) 100 Intake and Output 10/04/18 10/05/18 19:00 07:00 Intake Total 2310 ml 1350 ml Output Total 1460 ml 1120 ml Balance 850 ml 230 ml Intake IV Total 2310 ml 1350 ml Output Urine Total 1460 ml 1120 ml Laboratory Tests 10/05/18 03:45: White Blood Count 14.2H, Red Blood Count 3.66L, Hemoglobin 10.0L, Hematocrit 29.5L, Mean Corpuscular Volume 81, Mean Corpuscular Hemoglobin 27.3, Mean Corpuscular Hemoglobin Concent 33.9, Red Cell Distribution Width 14.6, Platelet Count 130L, Mean Platelet Volume 7.7, Neutrophils (%) (Auto) , Lymphocytes (%) ( Auto) , Monocytes (%) (Auto) , Eosinophils (%) (Auto) , Basophils (%) (Auto) , Differential Total Cells Counted 100, Neutrophils % (Manual) 86H, Lymphocytes % (Manual) 8L, Monocytes % (Manual) 4, Eosinophils % (Manual) 0, Basophils % ( Manual) 0, Band Neutrophils 2, Platelet Estimate DecreasedL, Platelet Morphology Normal, Mary Cells 2+, Acanthocytes 1+, Total Creatine Kinase 574H 10/05/18 07:22: Sodium Level 138, Potassium Level 2.7*L, Chloride Level 108H, Carbon Dioxide Level 12L, Anion Gap 18H, Blood Urea Nitrogen 77H, Creatinine 3.7H, Estimat Glomerular Filtration Rate , Glucose Level 129H, Calcium Level 8.2L, Total Bilirubin 0.3, Aspartate Amino Transf (AST/SGOT) 72H, Alanine Aminotransferase ( ALT/SGPT) 31, Alkaline Phosphatase 84, Total Protein 5.4L, Albumin 1.8L, Globulin 3.6, Albumin/Globulin Ratio 0.5L Height (Feet): 5 Height (Inches): 4.00 Weight (Pounds): 79 General Appearance: lethargic, confused Cardiovascular: normal rate Respiratory/Chest: decreased breath sounds Abdomen: soft Doc Shaver MD Oct 05, 2018 16:05
[2018-10-05] MEDS: Cefepime HCl 0.5 GM in D5W 55 ML IVPB SCH (16:12)
--- NOTE | 2018-10-05 17:07 | Cardiology Report ---
APPROVED REPORT EKG Measurement Heart [id number] Atrial fibrillation with rapid ventricular response Nonspecific ST and T wave abnormality Abnormal ECG
--- NOTE | 2018-10-05 17:36 | Infectious Diseases Prog Note ---
Assessment/Plan Assessment/Plan Assessment: Sepsis - likely 2ry to UTI- r/o bacteremia -u/a wbc 15-20, nit neg, leuk +3; ucx >100K E. faecalis (gentile S) -Bcx NTD -CXR: Unchanged appearance of prominent interstitial markings. This is likely related to chronic senescent changes although differential diagnosis may also include mild bronchitis or interstitial pneumonitis. -Sp cx p Leukocytosis, improving Afebrile Acute respiratory failure, on VM- ?acute PE Acute L DVT -V.duplex: Venous imaging reveals acute thrombus in the common femoral, popliteal and calf veins (posterior tibial and peroneal). Afib w/ RVR Troponinemia TITI, improving -Renal US: 1. 1.2 cm shadowing stone in the left lower renal pole. Mild left hydronephrosis. Nephrolithiasis -s/p recent renal stent 09/12 Afib s/p PPM dysphagia Nephrolithiasis CAD HTN endometrial tumor s/p hysterectomy 2005 sacral decubitus ulcer Plan: -Switch empriic Daptomycin #2 (abx d#5) to Ampicillin for enterococcus UTI -D/c empiric Cefepime #5 -10/04 SP IV Vancomycin #4 -f/u cx -Monitor CBC/CMP, temperatures -aspiration precautions -ICU care -aspiration precautions Thank you for this consultation. Will continue to follow along with you. Discussed with RN. Subjective Allergies: Coded Allergies: No Known Allergies (Unverified , 01/02/13) Subjective afebrile wbc 16 bcx NTD Objective Vital Signs Last 24 Hour Vital Signs Date Time Temp Pulse Resp B/P (MAP) Pulse Ox O2 Delivery O2 Flow Rate FiO2 10/05/18 16:00 Venturi Mask 10.0 10/05/18 16:00 78 10/05/18 16:00 97.7 77 20 122/78 (93) 100 10/05/18 15:00 75 18 128/74 (92) 100 10/05/18 14:00 74 18 134/77 (96) 100 10/05/18 13:29 89 134/66 10/05/18 13:00 75 18 125/78 (94) 100 10/05/18 12:00 77 18 133/80 (97) 100 10/05/18 12:00 77 10/05/18 12:00 Venturi Mask 10.0 10/05/18 11:00 78 18 134/84 (101) 100 10/05/18 10:00 74 20 125/77 (93) 100 10/05/18 09:00 97.8 75 20 138/81 (100) 100 10/05/18 08:45 128/65 10/05/18 08:00 Venturi Mask 10.0 10/05/18 08:00 76 20 122/78 (93) 100 10/05/18 08:00 76 10/05/18 07:00 78 20 128/78 (95) 100 10/05/18 06:55 Venturi Mask 10.0 45 10/05/18 06:55 71 14 Venturi Mask 10.0 45 10/05/18 06:55 100 Venturi Mask 10.0 45 10/05/18 06:00 79 20 156/95 (115) 100 10/05/18 05:43 124 156/95 10/05/18 05:00 79 20 156/95 (115) 100 10/05/18 04:00 79 10/05/18 04:00 97.5 79 19 119/71 (87) 100 10/05/18 04:00 Venturi Mask 10.0 10/05/18 03:00 88 19 124/56 (78) 100 10/05/18 02:00 83 19 144/80 (101) 100 10/05/18 01:00 82 19 114/56 (75) 100 10/05/18 00:00 82 10/05/18 00:00 Venturi Mask 10.0 10/05/18 00:00 97.5 90 19 144/56 (85) 100 10/04/18 23:00 76 19 152/77 (102) 100 10/04/18 22:27 70 129/87 10/04/18 22:00 72 22 129/87 (101) 100 10/04/18 21:00 96.5 71 21 117/44 (68) 100 10/04/18 20:00 Venturi Mask 10.0 10/04/18 20:00 78 10/04/18 20:00 78 15 117/44 (68) 100 10/04/18 19:36 Venturi Mask 8.0 40 10/04/18 19:36 100 Venturi Mask 8.0 40 10/04/18 19:35 60 15 Venturi Mask 10.0 45 10/04/18 19:00 62 14 117/40 (65) 100 10/04/18 18:00 62 16 125/42 (69) 100 Height (Feet): 5 Height (Inches): 4.00 Weight (Pounds): 79 Objective GENERAL: The patient well-developed, well-nourished female, thin-appearing, who is more or less lethargic. HEENT: Eyes, pupils equal and responsive to light and accommodation. Extraocular movements are intact. NECK: Supple without lymphadenopathy. CHEST: Decreased breath sounds at bilateral bases. Otherwise, clear to auscultation without wheezes or rales. CARDIOVASCULAR: Tachycardic, S1, S2 normal without murmurs, rubs, or gallops. ABDOMEN: Soft, nontender, and nondistended. Positive bowel sounds. No evidence of hepatosplenomegaly. Currently, no rebound or guarding noted. EXTREMITIES: Negative for clubbing, cyanosis, or edema. Microbiology Date/Time Source Procedure Growth Status 10/04/18 00:10 Sputum Induced Gram Stain - Final Resulted 10/04/18 00:10 Sputum Induced Sputum Culture Pending Resulted Laboratory Tests Test 10/05/18 03:45 10/05/18 07:22 White Blood Count 14.2 K/UL (4.8-10.8) H Red Blood Count 3.66 M/UL (4.20-5.40) L Hemoglobin 10.0 G/DL (12.0-16.0) L Hematocrit 29.5 % (37.0-47.0) L Mean Corpuscular Volume 81 FL (80-99) Mean Corpuscular Hemoglobin 27.3 PG (27.0-31.0) Mean Corpuscular Hemoglobin Concent 33.9 G/DL (32.0-36.0) Red Cell Distribution Width 14.6 % (11.6-14.8) Platelet Count 130 K/UL (150-450) L Mean Platelet Volume 7.7 FL (6.5-10.1) Neutrophils (%) (Auto) % (45.0-75.0) Lymphocytes (%) (Auto) % (20.0-45.0) Monocytes (%) (Auto) % (1.0-10.0) Eosinophils (%) (Auto) % (0.0-3.0) Basophils (%) (Auto) % (0.0-2.0) Differential Total Cells Counted 100 Neutrophils % (Manual) 86 % (45-75) H Lymphocytes % (Manual) 8 % (20-45) L Monocytes % (Manual) 4 % (1-10) Eosinophils % (Manual) 0 % (0-3) Basophils % (Manual) 0 % (0-2) Band Neutrophils 2 % (0-8) Platelet Estimate Decreased L Platelet Morphology Normal Mary Cells 2+ Acanthocytes 1+ Total Creatine Kinase 574 U/L (26-308) H Sodium Level 138 MMOL/L (136-145) Potassium Level 2.7 MMOL/L (3.5-5.1) *L Chloride Level 108 MMOL/L (98-107) H Carbon Dioxide Level 12 MMOL/L (21-32) L Anion Gap 18 mmol/L (5-15) H Blood Urea Nitrogen 77 mg/dL (7-18) H Creatinine 3.7 MG/DL (0.55-1.30) H Estimat Glomerular Filtration Rate mL/min (>60) Glucose Level 129 MG/DL (74-106) H Calcium Level 8.2 MG/DL (8.5-10.1) L Total Bilirubin 0.3 MG/DL (0.2-1.0) Aspartate Amino Transf (AST/SGOT) 72 U/L (15-37) H Alanine Aminotransferase (ALT/SGPT) 31 U/L (12-78) Alkaline Phosphatase 84 U/L (46-116) C-Reactive Protein, Quantitative 17.6 mg/dL (0.00-0.90) H Total Protein 5.4 G/DL (6.4-8.2) L Albumin 1.8 G/DL (3.4-5.0) L Globulin 3.6 g/dL Albumin/Globulin Ratio 0.5 (1.0-2.7) L Current Medications Medications (Trade) Dose Ordered Sig/Liz Route PRN Reason Start Time Stop Time Status Last Admin Dose Admin Albuterol/ Ipratropium (Albuterol/ Ipratropium) 3 ml Q4H PRN HHN Shortness of Breath 10/02/18 08:15 10/07/18 08:14 Amiodarone HCl (Cordarone) 200 mg EVERY 12 HOURS ORAL 10/04/18 21:00 11/03/18 20:59 10/05/18 09:24 Apixaban (Eliquis) 2.5 mg Q12HR ORAL 10/04/18 21:00 11/03/18 20:59 10/05/18 09:24 Cefepime HCl 0.5 gm/Dextrose 55 ml @ 110 mls/hr Q24H IVPB 10/03/18 16:00 10/10/18 15:59 10/05/18 16:12 Chlorhexidine Gluconate (Guerita-Hex 2%) 1 applic DAILY@2000 TOPIC 10/02/18 20:00 11/01/18 19:59 10/04/18 20:05 Daptomycin 200 mg/ Sodium Chloride 55 ml @ 100 mls/hr Q48H IV 10/04/18 14:00 10/11/18 13:59 10/04/18 14:03 Dextrose/Sodium Chloride 1,000 ml @ 75 mls/hr [id number] IV 10/05/18 08:30 11/04/18 08:29 10/05/18 08:30 Diltiazem HCl (Cardizem) 30 mg EVERY 8 HOURS ORAL 10/04/18 22:00 11/03/18 21:59 10/05/18 13:29 Lidocaine HCl (Xylocaine 1% 30ml) 30 ml NOW PRN INJ Radiology Procedure 10/03/18 11:15 10/06/18 11:01 Nitroglycerin (Ntg) 0.4 mg Q5M PRN SL Prn Chest Pain 10/02/18 08:15 11/01/18 08:14 Norepinephrine Bitartrate 4 mg/ Dextrose 250 ml @ 0 mls/hr Q24H IV 10/02/18 08:45 11/01/18 08:44 Olanzapine (ZyPREXA) 2.5 mg BEDTIME ORAL 10/04/18 21:00 11/03/18 20:59 10/04/18 22:18 Olanzapine (ZyPREXA) 2.5 mg Q6H PRN ORAL Agitation 10/04/18 11:30 11/03/18 11:29 Pantoprazole (Protonix) 40 mg DAILY IVP 10/02/18 09:00 11/01/18 08:59 10/05/18 09:23 Polyethylene Glycol (Miralax) 17 gm BEDTIME ORAL 10/02/18 21:00 11/01/18 20:59 10/04/18 21:00 Sodium Citrate (Bicitra) 30 ml EVERY 6 HOURS ORAL 10/05/18 12:00 11/04/18 11:59 10/05/18 11:13 Nuzhat Galicia M.D. Oct 05, 2018 17:36
--- NOTE | 2018-10-05 17:36 | Cardiac Electrophysiology PN ---
Assessment/Plan Assessment/Plan 1. Atrial fibrillation with rapid ventricular response. In SR but still goes in and out of fib with RVR Likely secondary to severe dehydration and azotemia. Continue Cardizem 30 mg tid and Amiodarone 200 bid and Eliquis 2.5 bid 2. Status post Biotronik pacemaker implantation. Interrogation showed Nl fx. Lots of atrial flutter with RVR 3. Troponin leak due to renal failure, levels of 0.25, 0.27 and 0.27. 4. Severe hypernatremia, sodium 171. Intravenous fluids per Dr. Shaver.Improved to 140s 5. Severe azotemia. BUN 117 and creatinine 5.5. IV fluids per Dr. Shaver. Down to 77/3.7 6. Dementia. 7. Sepsis. On IV antibiotic. 8. DVT Left Leg. On Eliquis Subjective Subjective Mostly in SR. Occasional atrial fib. On Venturi mask. Objective Last 24 Hour Vital Signs Date Time Temp Pulse Resp B/P (MAP) Pulse Ox O2 Delivery O2 Flow Rate FiO2 10/05/18 16:00 Venturi Mask 10.0 10/05/18 16:00 78 10/05/18 16:00 97.7 77 20 122/78 (93) 100 10/05/18 15:00 75 18 128/74 (92) 100 10/05/18 14:00 74 18 134/77 (96) 100 10/05/18 13:29 89 134/66 10/05/18 13:00 75 18 125/78 (94) 100 10/05/18 12:00 77 18 133/80 (97) 100 10/05/18 12:00 77 10/05/18 12:00 Venturi Mask 10.0 10/05/18 11:00 78 18 134/84 (101) 100 10/05/18 10:00 74 20 125/77 (93) 100 10/05/18 09:00 97.8 75 20 138/81 (100) 100 10/05/18 08:45 128/65 10/05/18 08:00 Venturi Mask 10.0 10/05/18 08:00 76 20 122/78 (93) 100 10/05/18 08:00 76 10/05/18 07:00 78 20 128/78 (95) 100 10/05/18 06:55 Venturi Mask 10.0 45 10/05/18 06:55 71 14 Venturi Mask 10.0 45 10/05/18 06:55 100 Venturi Mask 10.0 45 10/05/18 06:00 79 20 156/95 (115) 100 10/05/18 05:43 124 156/95 10/05/18 05:00 79 20 156/95 (115) 100 10/05/18 04:00 79 10/05/18 04:00 97.5 79 19 119/71 (87) 100 10/05/18 04:00 Venturi Mask 10.0 10/05/18 03:00 88 19 124/56 (78) 100 10/05/18 02:00 83 19 144/80 (101) 100 10/05/18 01:00 82 19 114/56 (75) 100 10/05/18 00:00 82 10/05/18 00:00 Venturi Mask 10.0 10/05/18 00:00 97.5 90 19 144/56 (85) 100 10/04/18 23:00 76 19 152/77 (102) 100 10/04/18 22:27 70 129/87 10/04/18 22:00 72 22 129/87 (101) 100 10/04/18 21:00 96.5 71 21 117/44 (68) 100 10/04/18 20:00 Venturi Mask 10.0 10/04/18 20:00 78 10/04/18 20:00 78 15 117/44 (68) 100 10/04/18 19:36 Venturi Mask 8.0 40 10/04/18 19:36 100 Venturi Mask 8.0 40 10/04/18 19:35 60 15 Venturi Mask 10.0 45 10/04/18 19:00 62 14 117/40 (65) 100 10/04/18 18:00 62 16 125/42 (69) 100 Intake and Output 10/04/18 10/05/18 19:00 07:00 Intake Total 2310 ml 1350 ml Output Total 1460 ml 1120 ml Balance 850 ml 230 ml Intake IV Total 2310 ml 1350 ml Output Urine Total 1460 ml 1120 ml Laboratory Tests Test 10/05/18 03:45 10/05/18 07:22 White Blood Count 14.2 K/UL (4.8-10.8) H Red Blood Count 3.66 M/UL (4.20-5.40) L Hemoglobin 10.0 G/DL (12.0-16.0) L Hematocrit 29.5 % (37.0-47.0) L Mean Corpuscular Volume 81 FL (80-99) Mean Corpuscular Hemoglobin 27.3 PG (27.0-31.0) Mean Corpuscular Hemoglobin Concent 33.9 G/DL (32.0-36.0) Red Cell Distribution Width 14.6 % (11.6-14.8) Platelet Count 130 K/UL (150-450) L Mean Platelet Volume 7.7 FL (6.5-10.1) Neutrophils (%) (Auto) % (45.0-75.0) Lymphocytes (%) (Auto) % (20.0-45.0) Monocytes (%) (Auto) % (1.0-10.0) Eosinophils (%) (Auto) % (0.0-3.0) Basophils (%) (Auto) % (0.0-2.0) Differential Total Cells Counted 100 Neutrophils % (Manual) 86 % (45-75) H Lymphocytes % (Manual) 8 % (20-45) L Monocytes % (Manual) 4 % (1-10) Eosinophils % (Manual) 0 % (0-3) Basophils % (Manual) 0 % (0-2) Band Neutrophils 2 % (0-8) Platelet Estimate Decreased L Platelet Morphology Normal [place] Cells 2+ Acanthocytes 1+ Total Creatine Kinase 574 U/L (26-308) H Sodium Level 138 MMOL/L (136-145) Potassium Level 2.7 MMOL/L (3.5-5.1) *L Chloride Level 108 MMOL/L (98-107) H Carbon Dioxide Level 12 MMOL/L (21-32) L Anion Gap 18 mmol/L (5-15) H Blood Urea Nitrogen 77 mg/dL (7-18) H Creatinine 3.7 MG/DL (0.55-1.30) H Estimat Glomerular Filtration Rate mL/min (>60) Glucose Level 129 MG/DL (74-106) H Calcium Level 8.2 MG/DL (8.5-10.1) L Total Bilirubin 0.3 MG/DL (0.2-1.0) Aspartate Amino Transf (AST/SGOT) 72 U/L (15-37) H Alanine Aminotransferase (ALT/SGPT) 31 U/L (12-78) Alkaline Phosphatase 84 U/L (46-116) C-Reactive Protein, Quantitative 17.6 mg/dL (0.00-0.90) H Total Protein 5.4 G/DL (6.4-8.2) L Albumin 1.8 G/DL (3.4-5.0) L Globulin 3.6 g/dL Albumin/Globulin Ratio 0.5 (1.0-2.7) L Microbiology Date/Time Source Procedure Growth Status 10/04/18 00:10 Sputum Induced Gram Stain - Final Resulted 10/04/18 00:10 Sputum Induced Sputum Culture Pending Resulted Objective HEAD AND NECK: Mild jugular venous distention. LUNGS: Decreased breath sounds. CARDIOVASCULAR: Pacemaker in the left subclavian and irregular S1 and S2. ABDOMEN: Soft. EXTREMITIES: Contracted with no edema. BREASTS: Her left breast has a mass. Brock Nicole MD Oct 05, 2018 17:36
[2018-10-05] MEDS: OLANZapine 2.5mg tab ORAL SCH (20:46)
[2018-10-05] MEDS: Miralax 17gm pkt ORAL SCH (20:47)
[2018-10-05] MEDS: Dyna-Hex 2% Top Sol 2oz TOPIC SCH (20:47)
--- NOTE | 2018-10-05 22:08 | Cardiology Progress Note ---
Assessment/Plan Assessment/Plan 1. Atrial fibrillation with rapid ventricular response, appears to be possibly permanent. 2. Respiratory failure with hypoxemia. 3. Hypotension/septic shock. 4. History of skin cancer, basal cell carcinoma to the lymph nodes. 5. 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 6. History of myocardial infarction. No intervention in 2003. 7. History of diverticulitis. 8. History of recent ureteral stent replacement. 9. DVT acute 10. anemia ivc filter not done tele noted afib ekg noted trop not change unlikely related to coronary ischemia liekly related to cri now with og tube has a pacer confused previously felt not to be a candidate for terminal block assembler anticoag per dtr due to fall risk although she will not be walking at least at this point was started on eliquis watch h/h stool ob positive s/p 1 unit of prbc yest out of icu if stabel hemodynamically seems better Subjective ROS Limited/Unobtainable: Yes Objective Last 24 Hour Vital Signs Date Time Temp Pulse Resp B/P (MAP) Pulse Ox O2 Delivery O2 Flow Rate FiO2 10/05/18 20:00 Venturi Mask 10.0 10/05/18 19:36 Venturi Mask 10.0 45 10/05/18 19:36 96 Venturi Mask 10.0 45 10/05/18 19:35 82 21 Venturi Mask 10.0 45 10/05/18 19:00 78 12 135/58 (83) 100 10/05/18 18:00 80 12 130/51 (77) 100 10/05/18 16:00 Venturi Mask 10.0 10/05/18 16:00 78 10/05/18 16:00 97.7 77 20 122/78 (93) 100 10/05/18 15:00 75 18 128/74 (92) 100 10/05/18 14:00 74 18 134/77 (96) 100 10/05/18 13:29 89 134/66 10/05/18 13:00 75 18 125/78 (94) 100 10/05/18 12:00 77 18 133/80 (97) 100 10/05/18 12:00 77 10/05/18 12:00 Venturi Mask 10.0 10/05/18 11:00 78 18 134/84 (101) 100 10/05/18 10:00 74 20 125/77 (93) 100 10/05/18 09:00 97.8 75 20 138/81 (100) 100 10/05/18 08:45 128/65 10/05/18 08:00 Venturi Mask 10.0 10/05/18 08:00 76 20 122/78 (93) 100 10/05/18 08:00 76 10/05/18 07:00 78 20 128/78 (95) 100 10/05/18 06:55 Venturi Mask 10.0 45 10/05/18 06:55 71 14 Venturi Mask 10.0 45 10/05/18 06:55 100 Venturi Mask 10.0 45 10/05/18 06:00 79 20 156/95 (115) 100 10/05/18 05:43 124 156/95 10/05/18 05:00 79 20 156/95 (115) 100 10/05/18 04:00 79 10/05/18 04:00 97.5 79 19 119/71 (87) 100 10/05/18 04:00 Venturi Mask 10.0 10/05/18 03:00 88 19 124/56 (78) 100 10/05/18 02:00 83 19 144/80 (101) 100 10/05/18 01:00 82 19 114/56 (75) 100 10/05/18 00:00 82 10/05/18 00:00 Venturi Mask 10.0 10/05/18 00:00 97.5 90 19 144/56 (85) 100 10/04/18 23:00 76 19 152/77 (102) 100 10/04/18 22:27 70 129/87 General Appearance: alert Neck: supple Cardiovascular: normal rate Respiratory/Chest: lungs clear Abdomen: normal bowel sounds, non tender, soft Extremities: no swelling Intake and Output 10/04/18 10/05/18 18:59 06:59 Intake Total 2230 ml 1500 ml Output Total 1600 ml 1100 ml Balance 630 ml 400 ml Intake IV Total 2230 ml 1500 ml Output Urine Total 1600 ml 1100 ml Laboratory Tests Test 10/05/18 03:45 10/05/18 07:22 White Blood Count 14.2 K/UL (4.8-10.8) H Red Blood Count 3.66 M/UL (4.20-5.40) L Hemoglobin 10.0 G/DL (12.0-16.0) L Hematocrit 29.5 % (37.0-47.0) L Mean Corpuscular Volume 81 FL (80-99) Mean Corpuscular Hemoglobin 27.3 PG (27.0-31.0) Mean Corpuscular Hemoglobin Concent 33.9 G/DL (32.0-36.0) Red Cell Distribution Width 14.6 % (11.6-14.8) Platelet Count 130 K/UL (150-450) L Mean Platelet Volume 7.7 FL (6.5-10.1) Neutrophils (%) (Auto) % (45.0-75.0) Lymphocytes (%) (Auto) % (20.0-45.0) Monocytes (%) (Auto) % (1.0-10.0) Eosinophils (%) (Auto) % (0.0-3.0) Basophils (%) (Auto) % (0.0-2.0) Differential Total Cells Counted 100 Neutrophils % (Manual) 86 % (45-75) H Lymphocytes % (Manual) 8 % (20-45) L Monocytes % (Manual) 4 % (1-10) Eosinophils % (Manual) 0 % (0-3) Basophils % (Manual) 0 % (0-2) Band Neutrophils 2 % (0-8) Platelet Estimate Decreased L Platelet Morphology Normal [place] Cells 2+ Acanthocytes 1+ Total Creatine Kinase 574 U/L (26-308) H Sodium Level 138 MMOL/L (136-145) Potassium Level 2.7 MMOL/L (3.5-5.1) *L Chloride Level 108 MMOL/L (98-107) H Carbon Dioxide Level 12 MMOL/L (21-32) L Anion Gap 18 mmol/L (5-15) H Blood Urea Nitrogen 77 mg/dL (7-18) H Creatinine 3.7 MG/DL (0.55-1.30) H Estimat Glomerular Filtration Rate mL/min (>60) Glucose Level 129 MG/DL (74-106) H Calcium Level 8.2 MG/DL (8.5-10.1) L Total Bilirubin 0.3 MG/DL (0.2-1.0) Aspartate Amino Transf (AST/SGOT) 72 U/L (15-37) H Alanine Aminotransferase (ALT/SGPT) 31 U/L (12-78) Alkaline Phosphatase 84 U/L (46-116) C-Reactive Protein, Quantitative 17.6 mg/dL (0.00-0.90) H Total Protein 5.4 G/DL (6.4-8.2) L Albumin 1.8 G/DL (3.4-5.0) L Globulin 3.6 g/dL Albumin/Globulin Ratio 0.5 (1.0-2.7) L Microbiology Date/Time Source Procedure Growth Status 10/04/18 00:10 Sputum Induced Gram Stain - Final Resulted 10/04/18 00:10 Sputum Induced Sputum Culture Pending Resulted Konrad Rodas MD Oct 05, 2018 22:08
[2018-10-06] VITALS (19 sets, daily range): BP systolic 119–162; BP diastolic 44–90
[2018-10-06 04:55] LABS: HEMATOCRIT 30.6 % (37.0-47.0); HEMOGLOBIN 10.4 G/DL (12.0-16.0); MEAN CORPUSCULAR VOLUME 81 FL (80-99); PLATELET COUNT 165 K/UL (150-450); RED BLOOD COUNT 3.79 M/UL (4.20-5.40); RED CELL DISTRIBUTION WIDTH 14.5 % (11.6-14.8); WHITE BLOOD COUNT 13.1 K/UL (4.8-10.8)
[2018-10-06 05:36] LABS: PHOSPHORUS 3.9 MG/DL (2.5-4.9)
[2018-10-06 05:44] LABS: ALANINE AMINOTRANSFERASE 39 U/L (12-78); ALBUMIN/GLOBULIN RATIO 0.5 (1.0-2.7); ALKALINE PHOSPHATASE 102 U/L (46-116); ANION GAP 16 mmol/L (5-15); ASPARTATE AMINO TRANSFERASE 89 U/L (15-37); BILIRUBIN,TOTAL 0.5 MG/DL (0.2-1.0); BLOOD UREA NITROGEN 61 mg/dL (7-18); CALCIUM 8.6 MG/DL (8.5-10.1); CARBON DIOXIDE 17 MMOL/L (21-32); CHLORIDE 112 MMOL/L (98-107); POTASSIUM 3.1 MMOL/L (3.5-5.1); SODIUM 144 MMOL/L (136-145)
[2018-10-06] MEDS: dilTIAZem HCl 30mg tab ORAL SCH (06:00)
[2018-10-06] MEDS: Sodium Citrate 30ml ORAL SCH ×4 (06:00→17:31)
[2018-10-06] MEDS: Amiodarone 200mg tab ORAL SCH (08:16)
[2018-10-06] MEDS: Pantoprazole Inj IVP SCH (08:16)
[2018-10-06] MEDS: Eliquis 2.5mg tablet ORAL SCH (08:17)
[2018-10-06] MEDS ORDERED: Ampicillin 2 GM in NS 110 ML IVPB SCH ×3 (09:00→21:45)
--- NOTE | 2018-10-06 09:19 | Nephrology Progress Note ---
Assessment/Plan Problem List: (1) ATN (acute tubular necrosis) (2) Septic shock (3) NSTEMI (non-ST elevated myocardial infarction) (4) Hyperkalemia Assessment Acute renal failure / Hyperkalemia resolved Sepsis / Shock / UTI NSTEMI (non-ST elevated myocardial infarction) Plan transfused- mag and K supplement as needed Fluid challenge D5W Antibiotics Avoid Nephrotoxics Urine studies pulmonary support poor prognosis Subjective ROS Limited/Unobtainable: No Constitutional: Reports: malaise Objective Objective Last 24 Hour Vital Signs Date Time Temp Pulse Resp B/P (MAP) Pulse Ox O2 Delivery O2 Flow Rate FiO2 10/06/18 09:05 80 18 Room Air 21 10/06/18 09:05 99 Room Air 21 10/06/18 09:05 21 10/06/18 08:45 150/90 10/06/18 08:00 Room Air 10/06/18 08:00 82 10/06/18 08:00 97.5 95 15 123/60 (81) 100 10/06/18 07:00 95 18 132/62 (85) 99 10/06/18 06:00 91 133/65 10/06/18 04:00 92 21 147/64 (91) 100 10/06/18 04:00 Venturi Mask 10.0 10/06/18 04:00 88 10/06/18 03:00 80 15 154/66 (95) 99 10/06/18 02:00 87 18 162/69 (100) 95 10/06/18 01:00 86 18 121/79 (93) 95 10/06/18 00:00 97.0 95 19 160/90 (113) 100 10/06/18 00:00 102 10/06/18 00:00 Venturi Mask 10.0 10/05/18 23:00 89 17 150/59 (89) 100 10/05/18 22:52 94 151/68 10/05/18 22:00 90 18 151/68 (95) 100 10/05/18 21:00 76 16 145/102 (116) 100 10/05/18 20:00 67 10/05/18 20:00 97.2 71 13 138/67 (90) 100 10/05/18 20:00 Venturi Mask 10.0 10/05/18 19:36 Venturi Mask 10.0 45 10/05/18 19:36 96 Venturi Mask 10.0 45 10/05/18 19:35 82 21 Venturi Mask 10.0 45 10/05/18 19:00 78 12 135/58 (83) 100 10/05/18 18:00 80 12 130/51 (77) 100 10/05/18 16:00 Venturi Mask 10.0 10/05/18 16:00 78 10/05/18 16:00 97.7 77 20 122/78 (93) 100 10/05/18 15:00 75 18 128/74 (92) 100 10/05/18 14:00 74 18 134/77 (96) 100 10/05/18 13:29 89 134/66 10/05/18 13:00 75 18 125/78 (94) 100 10/05/18 12:00 77 18 133/80 (97) 100 10/05/18 12:00 77 10/05/18 12:00 Venturi Mask 10.0 10/05/18 11:00 78 18 134/84 (101) 100 10/05/18 10:00 74 20 125/77 (93) 100 Intake and Output 10/05/18 10/06/18 19:00 07:00 Intake Total 825 ml 825 ml Output Total 590 ml 1245 ml Balance 235 ml -420 ml Intake IV Total 825 ml 825 ml Output Urine Total 590 ml 1245 ml # Bowel Movements 4 2 Laboratory Tests 10/06/18 04:15: White Blood Count 13.1H, Red Blood Count 3.79L, Hemoglobin 10.4L, Hematocrit 30.6L, Mean Corpuscular Volume 81, Mean Corpuscular Hemoglobin 27.4, Mean Corpuscular Hemoglobin Concent 33.9, Red Cell Distribution Width 14.5, Platelet Count 165, Mean Platelet Volume 7.5, Neutrophils (%) (Auto) , Lymphocytes (%) ( Auto) , Monocytes (%) (Auto) , Eosinophils (%) (Auto) , Basophils (%) (Auto) , Sodium Level 144, Potassium Level 3.1L, Chloride Level 112H, Carbon Dioxide Level 17L, Anion Gap 16H, Blood Urea Nitrogen 61H, Creatinine 3.0H, Estimat Glomerular Filtration Rate , Glucose Level 108H, Uric Acid 8.7H, Calcium Level 8.6, Phosphorus Level 3.9, Magnesium Level 1.6L, Total Bilirubin 0.5, Aspartate Amino Transf (AST/SGOT) 89H, Alanine Aminotransferase (ALT/SGPT) 39, Alkaline Phosphatase 102, Pro-B-Type Natriuretic Peptide 7791H, Total Protein 6.2L, Albumin 2.0L, Globulin 4.2, Albumin/Globulin Ratio 0.5L Height (Feet): 5 Height (Inches): 4.00 Weight (Pounds): 85 General Appearance: no apparent distress EENT: other - NGT Cardiovascular: tachycardia Respiratory/Chest: decreased breath sounds Abdomen: distended Doc Shaver MD Oct 06, 2018 09:19
[2018-10-06] MEDS ORDERED: D5 1/2NS 1,000 ML IV SCH ×2 (09:30→21:45)
--- NOTE | 2018-10-06 10:10 | Pulmonolgy Critical Care Note ---
Critical Care - Asmt/Plan Problems: (1) Septic shock (2) ATN (acute tubular necrosis) (3) Acute encephalopathy (4) DVT (deep venous thrombosis) (5) NSTEMI (non-ST elevated myocardial infarction) (6) Hyperkalemia (7) Severe protein-calorie malnutrition Respiratory: monitor respiratory rate, adjust FIO2 Cardiac: continue to monitor HR/BP Renal: F/U I&O Infectious Disease: check cultures Gastrointestinal: continue feedings/current rate Endocrine: monitor blood sugar, check TSH Hematologic: transfuse if hgb<8.5 Neurologic: PRN Ativan, PRN Morphine, keep patient comfortable Prophylaxis: Protonix, Heparin Notes Reviewed: receiving 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, 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 Discussed with: nurses, consultants, case preparer and linerspd manager - Objective Last 24 Hour Vital Signs Date Time Temp Pulse Resp B/P (MAP) Pulse Ox O2 Delivery O2 Flow Rate FiO2 10/06/18 09:05 80 18 Room Air 21 10/06/18 09:05 99 Room Air 21 10/06/18 09:05 21 10/06/18 09:00 96 21 150/90 (110) 100 10/06/18 08:45 150/90 10/06/18 08:00 Room Air 10/06/18 08:00 82 10/06/18 08:00 97.5 95 15 123/60 (81) 100 10/06/18 07:00 95 18 132/62 (85) 99 10/06/18 06:00 91 133/65 10/06/18 04:00 92 21 147/64 (91) 100 10/06/18 04:00 Venturi Mask 10.0 10/06/18 04:00 88 10/06/18 03:00 80 15 154/66 (95) 99 10/06/18 02:00 87 18 162/69 (100) 95 10/06/18 01:00 86 18 121/79 (93) 95 10/06/18 00:00 97.0 95 19 160/90 (113) 100 10/06/18 00:00 102 10/06/18 00:00 Venturi Mask 10.0 10/05/18 23:00 89 17 150/59 (89) 100 10/05/18 22:52 94 151/68 10/05/18 22:00 90 18 151/68 (95) 100 10/05/18 21:00 76 16 145/102 (116) 100 10/05/18 20:00 67 10/05/18 20:00 97.2 71 13 138/67 (90) 100 10/05/18 20:00 Venturi Mask 10.0 10/05/18 19:36 Venturi Mask 10.0 45 10/05/18 19:36 96 Venturi Mask 10.0 45 10/05/18 19:35 82 21 Venturi Mask 10.0 45 10/05/18 19:00 78 12 135/58 (83) 100 10/05/18 18:00 80 12 130/51 (77) 100 10/05/18 16:00 Venturi Mask 10.0 10/05/18 16:00 78 10/05/18 16:00 97.7 77 20 122/78 (93) 100 10/05/18 15:00 75 18 128/74 (92) 100 10/05/18 14:00 74 18 134/77 (96) 100 10/05/18 13:29 89 134/66 10/05/18 13:00 75 18 125/78 (94) 100 10/05/18 12:00 77 18 133/80 (97) 100 10/05/18 12:00 77 10/05/18 12:00 Venturi Mask 10.0 10/05/18 11:00 78 18 134/84 (101) 100 Status: sedated Condition: critical HEENT: atraumatic Lungs: clear Heart: HR/BP stable, regular Abdomen: non-tender, feeding tube Extremities: edema Decubiti: location Micro: Microbiology Date/Time Source Procedure Growth Status 10/04/18 00:10 Sputum Induced Gram Stain - Final Complete 10/04/18 00:10 Sputum Culture - Final Ella Albicans Complete Accucheck: 159 Critical Care - Subjective ROS Limited/Unobtainable: Yes Condition: critical EKG Rhythm: Sinus Rhythm FI02: 21 Sputum Amount: None I&O: Intake and Output 10/05/18 10/06/18 18:59 06:59 Intake Total 750 ml 825 ml Output Total 560 ml 1105 ml Balance 190 ml -280 ml Intake IV Total 750 ml 825 ml Output Urine Total 560 ml 1105 ml # Bowel Movements 4 2 CXR: no change Labs: Laboratory Tests Test 10/06/18 04:15 White Blood Count 13.1 K/UL (4.8-10.8) H Red Blood Count 3.79 M/UL (4.20-5.40) L Hemoglobin 10.4 G/DL (12.0-16.0) L Hematocrit 30.6 % (37.0-47.0) L Mean Corpuscular Volume 81 FL (80-99) Mean Corpuscular Hemoglobin 27.4 PG (27.0-31.0) Mean Corpuscular Hemoglobin Concent 33.9 G/DL (32.0-36.0) Red Cell Distribution Width 14.5 % (11.6-14.8) Platelet Count 165 K/UL (150-450) Mean Platelet Volume 7.5 FL (6.5-10.1) Neutrophils (%) (Auto) % (45.0-75.0) Lymphocytes (%) (Auto) % (20.0-45.0) Monocytes (%) (Auto) % (1.0-10.0) Eosinophils (%) (Auto) % (0.0-3.0) Basophils (%) (Auto) % (0.0-2.0) Sodium Level 144 MMOL/L (136-145) Potassium Level 3.1 MMOL/L (3.5-5.1) L Chloride Level 112 MMOL/L (98-107) H Carbon Dioxide Level 17 MMOL/L (21-32) L Anion Gap 16 mmol/L (5-15) H Blood Urea Nitrogen 61 mg/dL (7-18) H Creatinine 3.0 MG/DL (0.55-1.30) H Estimat Glomerular Filtration Rate mL/min (>60) Glucose Level 108 MG/DL (74-106) H Uric Acid 8.7 MG/DL (2.6-7.2) H Calcium Level 8.6 MG/DL (8.5-10.1) Phosphorus Level 3.9 MG/DL (2.5-4.9) Magnesium Level 1.6 MG/DL (1.8-2.4) L Total Bilirubin 0.5 MG/DL (0.2-1.0) Aspartate Amino Transf (AST/SGOT) 89 U/L (15-37) H Alanine Aminotransferase (ALT/SGPT) 39 U/L (12-78) Alkaline Phosphatase 102 U/L (46-116) Pro-B-Type Natriuretic Peptide 7791 pg/mL (0-125) H Total Protein 6.2 G/DL (6.4-8.2) L Albumin 2.0 G/DL (3.4-5.0) L Globulin 4.2 g/dL Albumin/Globulin Ratio 0.5 (1.0-2.7) L Camila Aquino MD Oct 06, 2018 10:10
--- NOTE | 2018-10-06 11:04 | Diagnostic Imaging Report ---
Indication: Dyspnea Technique: One view of the chest Comparison: 12/04/2017 Findings: There is equivocal minimal patchy retrocardiac consolidation. There is trace blunting of the right costophrenic sulcus. The lungs and pleural spaces are otherwise clear. The heart size is normal. There is a left chest bifocal pacemaker. Stable satisfactory position of nasogastric tube. Retrocardiac opacity, right costophrenic angle blunting are equivocally new since the prior exam Impression: Possible minimal retrocardiac consolidation Trace right pleural effusion, not evident previously Other stable findings as described
--- NOTE | 2018-10-06 12:40 | Infectious Diseases Prog Note ---
Assessment/Plan Assessment/Plan Assessment: Sepsis - likely 2ry to UTI- r/o bacteremia -u/a wbc 15-20, nit neg, leuk +3; ucx >100K E. faecalis (gentile S) -Bcx NTD -CXR: Unchanged appearance of prominent interstitial markings. This is likely related to chronic senescent changes although differential diagnosis may also include mild bronchitis or interstitial pneumonitis. -Sp cx C. albicans (colonizer) Leukocytosis, improving Afebrile Acute respiratory failure, on VM- ?acute PE Acute L DVT -V.duplex: Venous imaging reveals acute thrombus in the common femoral, popliteal and calf veins (posterior tibial and peroneal). Afib w/ RVR Troponinemia TITI, improving -Renal US: 1. 1.2 cm shadowing stone in the left lower renal pole. Mild left hydronephrosis. Nephrolithiasis -s/p recent renal stent 09/12 Afib s/p PPM dysphagia Nephrolithiasis CAD HTN endometrial tumor s/p hysterectomy 2005 sacral decubitus ulcer Plan: -Continue Ampicillin#2 (abx #6/7-10) for enterococcus UTI -10/05 SP Cefepime #5 -10/04 SP IV Vancomycin #4 -f/u cx -Monitor CBC/CMP, temperatures -aspiration precautions -ICU care -aspiration precautions -Plan to transfer to [place] and IVC filter placement Thank you for this consultation. Will continue to follow along with you. Discussed with RN. Subjective Allergies: Coded Allergies: No Known Allergies (Unverified , 01/02/13) Subjective afebrile wbc imporivng bcx NTD awaiting transfer to [place] Objective Vital Signs Last 24 Hour Vital Signs Date Time Temp Pulse Resp B/P (MAP) Pulse Ox O2 Delivery O2 Flow Rate FiO2 10/06/18 12:00 97.4 77 13 125/62 (83) 100 10/06/18 12:00 Room Air 10/06/18 12:00 76 10/06/18 11:00 81 16 133/76 (95) 99 10/06/18 10:00 92 20 156/66 (96) 98 10/06/18 09:05 80 18 Room Air 21 10/06/18 09:05 99 Room Air 21 10/06/18 09:05 21 10/06/18 09:00 96 21 150/90 (110) 100 10/06/18 08:45 150/90 10/06/18 08:00 Room Air 10/06/18 08:00 82 10/06/18 08:00 97.5 95 15 123/60 (81) 100 10/06/18 07:00 95 18 132/62 (85) 99 10/06/18 06:00 91 133/65 10/06/18 04:00 92 21 147/64 (91) 100 10/06/18 04:00 Venturi Mask 10.0 10/06/18 04:00 88 10/06/18 03:00 80 15 154/66 (95) 99 10/06/18 02:00 87 18 162/69 (100) 95 10/06/18 01:00 86 18 121/79 (93) 95 10/06/18 00:00 97.0 95 19 160/90 (113) 100 10/06/18 00:00 102 10/06/18 00:00 Venturi Mask 10.0 10/05/18 23:00 89 17 150/59 (89) 100 10/05/18 22:52 94 151/68 10/05/18 22:00 90 18 151/68 (95) 100 10/05/18 21:00 76 16 145/102 (116) 100 10/05/18 20:00 67 10/05/18 20:00 97.2 71 13 138/67 (90) 100 10/05/18 20:00 Venturi Mask 10.0 10/05/18 19:36 Venturi Mask 10.0 45 10/05/18 19:36 96 Venturi Mask 10.0 45 10/05/18 19:35 82 21 Venturi Mask 10.0 45 10/05/18 19:00 78 12 135/58 (83) 100 10/05/18 18:00 80 12 130/51 (77) 100 10/05/18 16:00 Venturi Mask 10.0 10/05/18 16:00 78 10/05/18 16:00 97.7 77 20 122/78 (93) 100 10/05/18 15:00 75 18 128/74 (92) 100 10/05/18 14:00 74 18 134/77 (96) 100 10/05/18 13:29 89 134/66 10/05/18 13:00 75 18 125/78 (94) 100 Height (Feet): 5 Height (Inches): 4.00 Weight (Pounds): 85 Objective GENERAL: The patient well-developed, well-nourished female, thin-appearing, who is more or less lethargic. HEENT: Eyes, pupils equal and responsive to light and accommodation. Extraocular movements are intact. NECK: Supple without lymphadenopathy. CHEST: Decreased breath sounds at bilateral bases. Otherwise, clear to auscultation without wheezes or rales. CARDIOVASCULAR: Tachycardic, S1, S2 normal without murmurs, rubs, or gallops. ABDOMEN: Soft, nontender, and nondistended. Positive bowel sounds. No evidence of hepatosplenomegaly. Currently, no rebound or guarding noted. EXTREMITIES: Negative for clubbing, cyanosis, or edema. Microbiology Date/Time Source Procedure Growth Status 10/04/18 00:10 Sputum Induced Gram Stain - Final Complete 10/04/18 00:10 Sputum Culture - Final Ella Albicans Complete Laboratory Tests Test 10/06/18 04:15 White Blood Count 13.1 K/UL (4.8-10.8) H Red Blood Count 3.79 M/UL (4.20-5.40) L Hemoglobin 10.4 G/DL (12.0-16.0) L Hematocrit 30.6 % (37.0-47.0) L Mean Corpuscular Volume 81 FL (80-99) Mean Corpuscular Hemoglobin 27.4 PG (27.0-31.0) Mean Corpuscular Hemoglobin Concent 33.9 G/DL (32.0-36.0) Red Cell Distribution Width 14.5 % (11.6-14.8) Platelet Count 165 K/UL (150-450) Mean Platelet Volume 7.5 FL (6.5-10.1) Neutrophils (%) (Auto) % (45.0-75.0) Lymphocytes (%) (Auto) % (20.0-45.0) Monocytes (%) (Auto) % (1.0-10.0) Eosinophils (%) (Auto) % (0.0-3.0) Basophils (%) (Auto) % (0.0-2.0) Sodium Level 144 MMOL/L (136-145) Potassium Level 3.1 MMOL/L (3.5-5.1) L Chloride Level 112 MMOL/L (98-107) H Carbon Dioxide Level 17 MMOL/L (21-32) L Anion Gap 16 mmol/L (5-15) H Blood Urea Nitrogen 61 mg/dL (7-18) H Creatinine 3.0 MG/DL (0.55-1.30) H Estimat Glomerular Filtration Rate mL/min (>60) Glucose Level 108 MG/DL (74-106) H Uric Acid 8.7 MG/DL (2.6-7.2) H Calcium Level 8.6 MG/DL (8.5-10.1) Phosphorus Level 3.9 MG/DL (2.5-4.9) Magnesium Level 1.6 MG/DL (1.8-2.4) L Total Bilirubin 0.5 MG/DL (0.2-1.0) Aspartate Amino Transf (AST/SGOT) 89 U/L (15-37) H Alanine Aminotransferase (ALT/SGPT) 39 U/L (12-78) Alkaline Phosphatase 102 U/L (46-116) Pro-B-Type Natriuretic Peptide 7791 pg/mL (0-125) H Total Protein 6.2 G/DL (6.4-8.2) L Albumin 2.0 G/DL (3.4-5.0) L Globulin 4.2 g/dL Albumin/Globulin Ratio 0.5 (1.0-2.7) L Current Medications Medications (Trade) Dose Ordered Sig/Liz Route PRN Reason Start Time Stop Time Status Last Admin Dose Admin Albuterol/ Ipratropium (Albuterol/ Ipratropium) 3 ml Q4H PRN HHN Shortness of Breath 10/02/18 08:15 10/07/18 08:14 Amiodarone HCl (Cordarone) 200 mg EVERY 12 HOURS ORAL 10/04/18 21:00 11/03/18 20:59 10/06/18 08:16 Ampicillin 2 gm/ Sodium Chloride 110 ml @ 220 mls/hr Q12HR IVPB 10/06/18 09:00 10/13/18 08:59 10/06/18 08:17 Apixaban (Eliquis) 2.5 mg Q12HR ORAL 10/04/18 21:00 11/03/18 20:59 11/29/18 08:17 Chlorhexidine Gluconate (Guerita-Hex 2%) 1 applic DAILY@2000 TOPIC 10/02/18 20:00 11/01/18 19:59 10/05/18 20:47 Dextrose/Sodium Chloride 1,000 ml @ 50 mls/hr Q20H IV 10/06/18 09:30 11/05/18 09:29 10/06/18 09:41 Diltiazem HCl (Cardizem) 60 mg EVERY 8 HOURS ORAL 10/06/18 14:00 11/03/18 21:59 Magnesium Sulfate 100 ml @ 100 mls/hr Q1H IVPB 10/06/18 09:00 10/06/18 12:59 10/06/18 11:21 Nitroglycerin (Ntg) 0.4 mg Q5M PRN SL Prn Chest Pain 10/02/18 08:15 11/01/18 08:14 Norepinephrine Bitartrate 4 mg/ Dextrose 250 ml @ 0 mls/hr Q24H IV 10/02/18 08:45 11/01/18 08:44 Olanzapine (ZyPREXA) 2.5 mg BEDTIME ORAL 10/04/18 21:00 11/03/18 20:59 10/05/18 20:46 Olanzapine (ZyPREXA) 2.5 mg Q6H PRN ORAL Agitation 10/04/18 11:30 11/03/18 11:29 10/06/18 11:02 Pantoprazole (Protonix) 40 mg DAILY IVP 10/02/18 09:00 11/01/18 08:59 10/06/18 08:16 Polyethylene Glycol (Miralax) 17 gm BEDTIME ORAL 10/02/18 21:00 11/01/18 20:59 10/05/18 20:47 Potassium Chloride 100 ml @ 100 mls/hr Q1H IVPB 10/06/18 09:00 10/06/18 12:59 10/06/18 11:21 Sodium Citrate (Bicitra) 30 ml EVERY 6 HOURS ORAL 10/05/18 12:00 11/04/18 11:59 10/06/18 11:21 Nuzhat Galicia M.D. Oct 06, 2018 12:40
[2018-10-06] MEDS ORDERED: dilTIAZem HCl 60mg tab ORAL SCH ×2 (14:00→22:00)
[2018-10-06] MEDS ORDERED: D5 1/2NS 1000ml IV ONE (14:12)
--- NOTE | 2018-10-06 14:31 | Cardiac Electrophysiology PN ---
Assessment/Plan Assessment/Plan 1. Atrial fibrillation with rapid ventricular response. In SR but still goes in and out of fib Likely secondary to severe dehydration and azotemia. Continue Cardizem 30 mg tid. Decrease to Amiodarone 200 qd and Eliquis 2.5 bid 2. Status post Biotronik pacemaker implantation. Interrogation showed Nl fx. Lots of atrial flutter with RVR 3. Troponin leak due to renal failure, levels of 0.25, 0.27 and 0.27. 4. Severe hypernatremia, sodium 171. Intravenous fluids per Dr. Shaver.Improved to 140s 5. Severe azotemia. BUN 117 and creatinine 5.5. IV fluids per Dr. Shaver. Down to 77/3.7 6. Dementia. 7. Sepsis. On IV antibiotic. 8. DVT Left Leg. On Eliquis 9. Dysphagia, ? PEG Subjective Subjective In and out of SR. On Nasal Cannula Objective Last 24 Hour Vital Signs Date Time Temp Pulse Resp B/P (MAP) Pulse Ox O2 Delivery O2 Flow Rate FiO2 10/06/18 12:00 97.4 77 13 125/62 (83) 100 10/06/18 12:00 Room Air 10/06/18 12:00 76 10/06/18 11:00 81 16 133/76 (95) 99 10/06/18 10:00 92 20 156/66 (96) 98 10/06/18 09:05 80 18 Room Air 21 10/06/18 09:05 99 Room Air 21 10/06/18 09:05 21 10/06/18 09:00 96 21 150/90 (110) 100 10/06/18 08:45 150/90 10/06/18 08:00 Room Air 10/06/18 08:00 82 10/06/18 08:00 97.5 95 15 123/60 (81) 100 10/06/18 07:00 95 18 132/62 (85) 99 10/06/18 06:00 91 133/65 10/06/18 04:00 92 21 147/64 (91) 100 10/06/18 04:00 Venturi Mask 10.0 10/06/18 04:00 88 10/06/18 03:00 80 15 154/66 (95) 99 10/06/18 02:00 87 18 162/69 (100) 95 10/06/18 01:00 86 18 121/79 (93) 95 10/06/18 00:00 97.0 95 19 160/90 (113) 100 10/06/18 00:00 102 10/06/18 00:00 Venturi Mask 10.0 10/05/18 23:00 89 17 150/59 (89) 100 10/05/18 22:52 94 151/68 10/05/18 22:00 90 18 151/68 (95) 100 10/05/18 21:00 76 16 145/102 (116) 100 10/05/18 20:00 67 10/05/18 20:00 97.2 71 13 138/67 (90) 100 10/05/18 20:00 Venturi Mask 10.0 10/05/18 19:36 Venturi Mask 10.0 45 10/05/18 19:36 96 Venturi Mask 10.0 45 10/05/18 19:35 82 21 Venturi Mask 10.0 45 10/05/18 19:00 78 12 135/58 (83) 100 10/05/18 18:00 80 12 130/51 (77) 100 10/05/18 16:00 Venturi Mask 10.0 10/05/18 16:00 78 10/05/18 16:00 97.7 77 20 122/78 (93) 100 10/05/18 15:00 75 18 128/74 (92) 100 Intake and Output 10/05/18 10/06/18 18:59 06:59 Intake Total 750 ml 825 ml Output Total 560 ml 1105 ml Balance 190 ml -280 ml Intake IV Total 750 ml 825 ml Output Urine Total 560 ml 1105 ml # Bowel Movements 4 2 Laboratory Tests Test 10/06/18 04:15 White Blood Count 13.1 K/UL (4.8-10.8) H Red Blood Count 3.79 M/UL (4.20-5.40) L Hemoglobin 10.4 G/DL (12.0-16.0) L Hematocrit 30.6 % (37.0-47.0) L Mean Corpuscular Volume 81 FL (80-99) Mean Corpuscular Hemoglobin 27.4 PG (27.0-31.0) Mean Corpuscular Hemoglobin Concent 33.9 G/DL (32.0-36.0) Red Cell Distribution Width 14.5 % (11.6-14.8) Platelet Count 165 K/UL (150-450) Mean Platelet Volume 7.5 FL (6.5-10.1) Neutrophils (%) (Auto) % (45.0-75.0) Lymphocytes (%) (Auto) % (20.0-45.0) Monocytes (%) (Auto) % (1.0-10.0) Eosinophils (%) (Auto) % (0.0-3.0) Basophils (%) (Auto) % (0.0-2.0) Sodium Level 144 MMOL/L (136-145) Potassium Level 3.1 MMOL/L (3.5-5.1) L Chloride Level 112 MMOL/L (98-107) H Carbon Dioxide Level 17 MMOL/L (21-32) L Anion Gap 16 mmol/L (5-15) H Blood Urea Nitrogen 61 mg/dL (7-18) H Creatinine 3.0 MG/DL (0.55-1.30) H Estimat Glomerular Filtration Rate mL/min (>60) Glucose Level 108 MG/DL (74-106) H Uric Acid 8.7 MG/DL (2.6-7.2) H Calcium Level 8.6 MG/DL (8.5-10.1) Phosphorus Level 3.9 MG/DL (2.5-4.9) Magnesium Level 1.6 MG/DL (1.8-2.4) L Total Bilirubin 0.5 MG/DL (0.2-1.0) Aspartate Amino Transf (AST/SGOT) 89 U/L (15-37) H Alanine Aminotransferase (ALT/SGPT) 39 U/L (12-78) Alkaline Phosphatase 102 U/L (46-116) Pro-B-Type Natriuretic Peptide 7791 pg/mL (0-125) H Total Protein 6.2 G/DL (6.4-8.2) L Albumin 2.0 G/DL (3.4-5.0) L Globulin 4.2 g/dL Albumin/Globulin Ratio 0.5 (1.0-2.7) L Microbiology Date/Time Source Procedure Growth Status 10/04/18 00:10 Sputum Induced Gram Stain - Final Complete 10/04/18 00:10 Sputum Culture - Final Ella Albicans Complete Objective HEAD AND NECK: No JVD. NG tube is in LUNGS: Decreased breath sounds. CARDIOVASCULAR: Pacemaker in the left subclavian and irregular S1 and S2. ABDOMEN: Soft. EXTREMITIES: Contracted with no edema. BREASTS: Her left breast has a mass. Brock Nicole MD Oct 06, 2018 14:31
[2018-10-06] MEDS ORDERED: NS 275ml ONE (16:40)
[2018-10-06] MEDS ORDERED: Tubing IV Secondary IV ONE (16:57)
--- NOTE | 2018-10-06 19:13 | Internal Med Progress Note ---
Subjective Date of Service: Oct 06, 2018 Physician Name Augustin,Guido Attending Physician Moses Gaona MD Current Medications Medications (Trade) Dose Ordered Sig/Liz Route PRN Reason Start Time Stop Time Status Last Admin Dose Admin Albuterol/ Ipratropium (Albuterol/ Ipratropium) 3 ml Q4H PRN HHN Shortness of Breath 10/02/18 08:15 10/07/18 08:14 Amiodarone HCl (Cordarone) 200 mg DAILY ORAL 10/07/18 09:00 11/03/18 20:59 Ampicillin 2 gm/ Sodium Chloride 110 ml @ 220 mls/hr Q12HR IVPB 10/06/18 09:00 10/13/18 08:59 10/06/18 08:17 Apixaban (Eliquis) 2.5 mg Q12HR ORAL 10/04/18 21:00 11/03/18 20:59 10/06/18 08:17 Chlorhexidine Gluconate (Guerita-Hex 2%) 1 applic DAILY@2000 TOPIC 10/02/18 20:00 11/01/18 19:59 10/05/18 20:47 Dextrose/Sodium Chloride 1,000 ml @ 50 mls/hr Q20H IV 10/06/18 09:30 11/05/18 09:29 10/06/18 09:41 Diltiazem HCl (Cardizem) 60 mg EVERY 8 HOURS ORAL 10/06/18 14:00 11/03/18 21:59 10/06/18 14:40 Nitroglycerin (Ntg) 0.4 mg Q5M PRN SL Prn Chest Pain 10/02/18 08:15 11/01/18 08:14 Norepinephrine Bitartrate 4 mg/ Dextrose 250 ml @ 0 mls/hr Q24H IV 10/02/18 08:45 11/01/18 08:44 Olanzapine (ZyPREXA) 2.5 mg BEDTIME ORAL 10/04/18 21:00 11/03/18 20:59 10/05/18 20:46 Olanzapine (ZyPREXA) 2.5 mg Q6H PRN ORAL Agitation 10/04/18 11:30 11/03/18 11:29 10/06/18 11:02 Pantoprazole (Protonix) 40 mg DAILY IVP 10/02/18 09:00 11/01/18 08:59 10/06/18 08:16 Polyethylene Glycol (Miralax) 17 gm BEDTIME ORAL 10/02/18 21:00 11/01/18 20:59 10/05/18 20:47 Sodium Citrate (Bicitra) 30 ml EVERY 6 HOURS ORAL 10/05/18 12:00 11/04/18 11:59 10/06/18 17:31 Allergies: Coded Allergies: No Known Allergies (Unverified , 01/02/13) Subjective 87 YO F admitted [facility] probable sepsis. Now respiratory failure and renal failure. Cover for Int Med-Dr Gaona. ICU. Objective Last Vital Signs Date Time Temp Pulse Resp B/P (MAP) Pulse Ox O2 Delivery O2 Flow Rate FiO2 10/06/18 18:00 90 20 138/82 (100) 99 10/06/18 16:00 97.5 10/06/18 16:00 Room Air 10/06/18 09:05 21 10/06/18 04:00 10.0 Laboratory Tests Test 10/06/18 04:15 White Blood Count 13.1 K/UL (4.8-10.8) H Red Blood Count 3.79 M/UL (4.20-5.40) L Hemoglobin 10.4 G/DL (12.0-16.0) L Hematocrit 30.6 % (37.0-47.0) L Mean Corpuscular Volume 81 FL (80-99) Mean Corpuscular Hemoglobin 27.4 PG (27.0-31.0) Mean Corpuscular Hemoglobin Concent 33.9 G/DL (32.0-36.0) Red Cell Distribution Width 14.5 % (11.6-14.8) Platelet Count 165 K/UL (150-450) Mean Platelet Volume 7.5 FL (6.5-10.1) Neutrophils (%) (Auto) % (45.0-75.0) Lymphocytes (%) (Auto) % (20.0-45.0) Monocytes (%) (Auto) % (1.0-10.0) Eosinophils (%) (Auto) % (0.0-3.0) Basophils (%) (Auto) % (0.0-2.0) Sodium Level 144 MMOL/L (136-145) Potassium Level 3.1 MMOL/L (3.5-5.1) L Chloride Level 112 MMOL/L (98-107) H Carbon Dioxide Level 17 MMOL/L (21-32) L Anion Gap 16 mmol/L (5-15) H Blood Urea Nitrogen 61 mg/dL (7-18) H Creatinine 3.0 MG/DL (0.55-1.30) H Estimat Glomerular Filtration Rate mL/min (>60) Glucose Level 108 MG/DL (74-106) H Uric Acid 8.7 MG/DL (2.6-7.2) H Calcium Level 8.6 MG/DL (8.5-10.1) Phosphorus Level 3.9 MG/DL (2.5-4.9) Magnesium Level 1.6 MG/DL (1.8-2.4) L Total Bilirubin 0.5 MG/DL (0.2-1.0) Aspartate Amino Transf (AST/SGOT) 89 U/L (15-37) H Alanine Aminotransferase (ALT/SGPT) 39 U/L (12-78) Alkaline Phosphatase 102 U/L (46-116) Pro-B-Type Natriuretic Peptide 7791 pg/mL (0-125) H Total Protein 6.2 G/DL (6.4-8.2) L Albumin 2.0 G/DL (3.4-5.0) L Globulin 4.2 g/dL Albumin/Globulin Ratio 0.5 (1.0-2.7) L Microbiology Date/Time Source Procedure Growth Status 10/04/18 00:10 Sputum Induced Gram Stain - Final Complete 10/04/18 00:10 Sputum Culture - Final Ella Albicans Complete Intake and Output 10/05/18 10/06/18 19:00 07:00 Intake Total 825 ml 825 ml Output Total 590 ml 1245 ml Balance 235 ml -420 ml Intake IV Total 825 ml 825 ml Output Urine Total 590 ml 1245 ml # Bowel Movements 4 2 Objective General Appearance: moderate distress, lethargic, thin EENT: PERRL/EOMI, normal ENT inspection Neck: non-tender, normal alignment, supple, normal inspection Cardiovascular: regular rhythm, no gallop/murmur, no JVD, tachycardia Respiratory/Chest: Venturi mask; chest wall non-tender, crackles/rales, rhonchi - bilaterally, expiratory wheezing Abdomen: normal bowel sounds, non tender, soft, no organomegaly, no mass Extremities: normal range of motion, non-tender Neurologic: cashiers bussers food runners II-XII grossly normal, no motor/sensory deficits Skin: normal pigmentation, warm/dry Assessment/Plan Problem List: (1) Respiratory failure Assessment & Plan: tolerating room air See pulmonary note. (2) Nephrolithiasis Assessment & Plan: S/P stent. See nephrology note. (3) UTI (urinary tract infection) Assessment & Plan: Streptococcus sp. Continue vanco and cefepime per ID. Await culture results. (4) Sepsis Assessment & Plan: Continue vanco and cefepime per ID. Await cultures. (5) Hypernatremia Assessment & Plan: Resolving. See nephrology note. Continue D5W (6) Pacemaker Assessment & Plan: see cardiology note. (7) Hyperkalemia (8) Renal failure Assessment & Plan: See nephrology note. (9) Atrial fibrillation with rapid ventricular response Assessment & Plan: See cardiology note. (10) CHF (congestive heart failure) (11) Elevated troponin Assessment & Plan: See cardiology note. Status: progressing Guido Augustin MD Oct 06, 2018 19:13
[2018-10-06] MEDS: Dyna-Hex 2% Top Sol 2oz TOPIC SCH (20:00)
[2018-10-06] MEDS ORDERED: Eliquis 2.5mg tablet ORAL SCH (21:00)
--- NOTE | 2018-10-06 21:43 | General Progress Note ---
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 Subjective Neurologic/Psychiatric: Reports: anxiety, depressed, emotional problems Allergies: Coded Allergies: No Known Allergies (Unverified , 01/02/13) Objective Last 24 Hour Vital Signs Date Time Temp Pulse Resp B/P (MAP) Pulse Ox O2 Delivery O2 Flow Rate FiO2 10/06/18 20:00 Room Air 10/06/18 20:00 75 10/06/18 19:23 98 Room Air 21 10/06/18 19:23 79 18 Room Air 21 10/06/18 19:23 Room Air 21 10/06/18 19:00 76 14 126/55 (78) 98 10/06/18 18:00 90 20 138/82 (100) 99 10/06/18 17:00 97 18 132/53 (79) 99 10/06/18 16:00 97.5 80 19 119/54 (75) 100 10/06/18 16:00 78 10/06/18 16:00 Room Air 10/06/18 15:00 91 18 132/44 (73) 99 10/06/18 14:40 83 137/82 10/06/18 14:00 73 17 137/82 (100) 95 10/06/18 13:00 83 18 147/65 (92) 100 10/06/18 12:00 97.4 77 13 125/62 (83) 100 10/06/18 12:00 Room Air 10/06/18 12:00 76 10/06/18 11:00 81 16 133/76 (95) 99 10/06/18 10:00 92 20 156/66 (96) 98 10/06/18 09:05 80 18 Room Air 21 10/06/18 09:05 99 Room Air 21 10/06/18 09:05 21 10/06/18 09:00 96 21 150/90 (110) 100 10/06/18 08:45 150/90 10/06/18 08:00 Room Air 10/06/18 08:00 82 10/06/18 08:00 97.5 95 15 123/60 (81) 100 10/06/18 07:00 95 18 132/62 (85) 99 10/06/18 06:00 91 133/65 10/06/18 04:00 92 21 147/64 (91) 100 10/06/18 04:00 Venturi Mask 10.0 10/06/18 04:00 88 10/06/18 03:00 80 15 154/66 (95) 99 10/06/18 02:00 87 18 162/69 (100) 95 10/06/18 01:00 86 18 121/79 (93) 95 10/06/18 00:00 97.0 95 19 160/90 (113) 100 10/06/18 00:00 102 10/06/18 00:00 Venturi Mask 10.0 10/05/18 23:00 89 17 150/59 (89) 100 10/05/18 22:52 94 151/68 10/05/18 22:00 90 18 151/68 (95) 100 Intake and Output 10/05/18 10/06/18 19:00 07:00 Intake Total 825 ml 825 ml Output Total 590 ml 1245 ml Balance 235 ml -420 ml Intake IV Total 825 ml 825 ml Output Urine Total 590 ml 1245 ml # Bowel Movements 4 2 Laboratory Tests 10/06/18 04:15: White Blood Count 13.1H, Red Blood Count 3.79L, Hemoglobin 10.4L, Hematocrit 30.6L, Mean Corpuscular Volume 81, Mean Corpuscular Hemoglobin 27.4, Mean Corpuscular Hemoglobin Concent 33.9, Red Cell Distribution Width 14.5, Platelet Count 165, Mean Platelet Volume 7.5, Neutrophils (%) (Auto) , Lymphocytes (%) ( Auto) , Monocytes (%) (Auto) , Eosinophils (%) (Auto) , Basophils (%) (Auto) , Sodium Level 144, Potassium Level 3.1L, Chloride Level 112H, Carbon Dioxide Level 17L, Anion Gap 16H, Blood Urea Nitrogen 61H, Creatinine 3.0H, Estimat Glomerular Filtration Rate , Glucose Level 108H, Uric Acid 8.7H, Calcium Level 8.6, Phosphorus Level 3.9, Magnesium Level 1.6L, Total Bilirubin 0.5, Aspartate Amino Transf (AST/SGOT) 89H, Alanine Aminotransferase (ALT/SGPT) 39, Alkaline Phosphatase 102, Pro-B-Type Natriuretic Peptide 7791H, Total Protein 6.2L, Albumin 2.0L, Globulin 4.2, Albumin/Globulin Ratio 0.5L Height (Feet): 5 Height (Inches): 4.00 Weight (Pounds): 85 General Appearance: alert, confused, agitated Naida Gallardo MD Oct 06, 2018 21:43
[2018-10-06] MEDS ORDERED: Nitroglycerin Subl 0.4mg tab SL PRN (21:50)
[2018-10-06] MEDS ORDERED: OLANZapine 2.5mg tab ORAL PRN (22:00)
[2018-10-06] MEDS ORDERED: Albuterol/Ipratropium 3ml neb HHN PRN (22:00)
[2018-10-07] MEDS ORDERED: Sodium Citrate 30ml ORAL SCH
[2018-10-07] MEDS ORDERED: D5 1/2NS 1000ml IV ONE (00:19)
[2018-10-07] MEDS ORDERED: Tubing IV Secondary IV ONE (00:19)
[2018-10-07] MEDS ORDERED: Amiodarone 200mg tab ORAL SCH ×2 (09:00)
[2018-10-07] MEDS ORDERED: Dyna-Hex 2% Top Sol 2oz TOPIC SCH (20:00)
[2018-10-07] MEDS ORDERED: OLANZapine 2.5mg tab ORAL SCH (21:00)
[2018-10-07] MEDS ORDERED: Miralax 17gm pkt ORAL SCH (21:00)
--- NOTE | 2018-10-10 11:01 | Discharge Summary ---
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 According to the daughter , patient was more lethargic , but no cough, no fever , no nausea, no vomiting ,no diarrhea was reported. Patient had renal stent placement few days ago at [facility] and had not been herself since that time . She was on antibiotics. Upon evaluation patient was found to be septic , in atrial fibrillation with rapid ventricular response. Laboratory workup revealed acute renal failure and evidence of urinary tract infection. Patient also had acute respiratory failure and started on 100% percent nonrebreathing mask. Troponin was elevated. Electrolytes abnormalities noted with hypernatremia and hyperkalemia. Kayexalate given. Patient also noted to be malnourished with BMI of 14.6 and low albumin level. Septic workup initiated in emergency room , patient received fluid challenge , pancultured and started on empiric antibiotic . Patient was subsequently admitted to direct observational unit for further management. CONSULTANTS: sitecore developer Dr. Rodas cardiology electrophysiology Dr. Nicole pulmonary Dr. Aquino ID specialist Dr. Gomes buggy ladle tender Dr. Shaver psychiatrist [facility] COURSE: Patient initially admitted to [facility]. Blood pressure was dropping. Patient was transferred to ICU , Levophed ordered , with close monitoring of hemodynamic status. Blood pressure was closely monitored. No need for pressors, but patient required intermittent boluses and Albumin . Blood pressure eventually stabilized.v Patient was followed up with serial troponin. Ice Skating Coach and sitecore developer/senior software architect closely followed. Per sitecore developer, troponin levels were flat, no complaints of chest pain. Abnormal troponin levels were likely due to troponin leak, secondary to renal failure. Echocardiogram revealed ejection fraction 55%, no wall motion abnormality. Mild left ventricular hypertrophy. Right ventricular systolic pressure of 44 consistent with mild pulmonary hypertension. Mild mitral regurgitation and moderate tricuspid regurgitation. Patient started on antiplatelet therapy with aspirin . Nitroglycerin was on board as needed. No anticoagulation initially given black stools, as reported by family. DVT prophylaxis provided. Heart rate was initially managed with IV Metoprolol and IV Digoxin loading dose given. Heart rate improved. Patient started on Cardizem and Amiodarone, Amiodarone dose optimized. TSH within normal limits. Anticoagulation with Eliquis started as per cardio. Patient was in and out of atrial fibrillation, likely permanent as per sitecore developer. Venous duplex revealed acute DVT left lower extremity in femoral, popliteal, and cough complaints. On 10/03 hemoglobin 7 hematocrit 21.8. Stool for occult blood was positive. Patient undergone transfusion of 1 unit of packed red blood cells. Anemia workup revealed evidence of iron deficiency anemia. Hemoglobin and hematocrit improved. Patient started on anticoagulation with Eliquis for acute DVT and atrial fibrillation. Hemoglobin and hematocrit remained stable, prior to transfer hemoglobin 10.4 hematocrit 30.6. Patient will need close observation for any signs of GI bleeding and tight monitoring of hemoglobin and hematocrit. Patient may benefit from IVC filter for acute DVT. Patient initially placed on nonrebreathing mask. ABG revealed of acute metabolic acidosis. Patient was at high risk to be intubated. Metabolic acidosis attempted to be corrected with sodium bicarbonate. Repeated ABG revealed normal pH. No intubation was required. Patient was able to be weaned to Venturi mask, then nasal cannula, and prior to transfer was on room air with stable pulse oximetry. ID specialist closely followed Blood culture on 2 different days were negative. Sputum culture revealed Ella. Urine culture revealed Enterococcus faecalis. Antibiotic regimen optimized based on sensitivity as per ID specialist recommendations. Leukocytosis trending down prior to transfer, patient was afebrile. Sacral decubitus ulcer, present on admission, showed no evidence of infection. Renal ultrasound revealed left lower kidney stone and mild left hydronephrosis. Patient was on intermittent boluses of IV fluids after initial hydration. Electrical Engineering Director closely followed. Electrolytes corrected as needed. Nephrotoxins were avoided. Prior to transfer sodium from 168 down to normal 144, potassium from 6.3 down to 3.1(replaced prior to transfer), magnesium replaced. Creatinine from 6.3 down to 3.0. GI prophylaxis provided. Supportive care provided. Wound care provided. Dietary recommendation regarding nutritional supplements implemented in plan of care. Strict aspiration precautions were maintained. Patient will need workup for dysphagia upon transfer. Bowel regimen instituted. Psychiatrist followed and placed patient on Zyprexa at night time and as needed for agitation. Patient condition's stabilized and she was ready for transfer to [facility] for further management. FINAL DIAGNOSES: Septic shock - resolved Sepsis due to UTI Enterococci UTI Acute hypoxemic respiratory failure Atrial fibrillation with rapid ventricular response , likely permanent Acute renal failure with acute tubular necrosis Acute encephalopathy , likely secondary to sepsis Abnormal cardiac enzymes/elevated troponin - probably due to troponin leak secondary to acute renal failure Acute DVT left lower extremity Electrolyte abnormalities :hyperkalemia, hypernatremia Anemia of iron deficiency, status post blood transfusion Severe protein calorie malnutrition Nephrolithiasis, status post recent stent placement Dysphagia Hypertension Coronary artery disease with history of [place] ( no interventions, in 2003) 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 DISCHARGE INSTRUCTIONS: Patient was transferred to [facility] for further management Brooke Lau NP Oct 10, 2018 11:01
== END 2018-10-07 00:20 | disposition short-term general hospital (02) | DRG 871 ==
LOC: EDBD 21:48 → EMR 21:57 → 2W 10-02 02:52 → EDBEDREQ 10-02 02:57 → ICU 10-02 09:00 → 2E 10-06 20:30
PROC: 30233N1 Transfusion of Nonautologous Red Blood Cells into Peripheral Vein, Percutaneous Approach (ICD-10-PCS; principal; 2018-10-03)
DX: A41.9 Sepsis, unspecified organism (principal); R65.21 Severe sepsis with septic shock; J96.01 Acute respiratory failure with hypoxia; G93.41 Metabolic encephalopathy; N17.0 Acute kidney failure with tubular necrosis; E43 Unspecified severe protein-calorie malnutrition; N39.0 Urinary tract infection, site not specified; I82.402 Acute embolism and thrombosis of unspecified deep veins of left lower extremity; K92.2 Gastrointestinal hemorrhage, unspecified; E87.0 Hyperosmolality and hypernatremia; Z68.1 Body mass index [BMI] 19.9 or less, adult; I48.2 Chronic atrial fibrillation; B95.2 Enterococcus as the cause of diseases classified elsewhere; D50.9 Iron deficiency anemia, unspecified; N20.0 Calculus of kidney; R13.10 Dysphagia, unspecified; I10 Essential (primary) hypertension; I25.10 Atherosclerotic heart disease of native coronary artery without angina pectoris; I25.2 Old myocardial infarction; Z95.0 Presence of cardiac pacemaker; Z85.828 Personal history of other malignant neoplasm of skin; Z85.89 Personal history of malignant neoplasm of other organs and systems; L89.159 Pressure ulcer of sacral region, unspecified stage; Z87.891 Personal history of nicotine dependence; E86.0 Dehydration; F03.90 Unspecified dementia, unspecified severity, without behavioral disturbance, psychotic disturbance, mood disturbance, and anxiety; N63.0 Unspecified lump in unspecified breast
CPT/HCPCS: 36415; 36600; 51702; 71045; 74018; 76770; 80053; 80061; 80202; 81003; 82270; 82533; 82550; 82570; 82607; 82728; 82746; 82803; 83540; 83550; 83605; 83735; 83880; 83935; 84100; 84300; 84443; 84484; 84550; 85007; 85025; 85610; 85730; 86140; 86850; 86900; 86901; 86920; 87040; 87070; 87086; 87181; 87205; 93005; 93306; 93970; 94664; 94760; 96361; 96365; 96366; 96367; 99291; 99292